=== PATIENT | male | born 1980 | race Asian ===

== ENCOUNTER 2024-05-25 12:40 | Emergency (ER) | payer MEDICAID ==
[~2024-05-25] VITALS: Ht 165.1 cm; Wt 49.4 kg
[2024-05-25] MEDS: ziprasidone IM 20mg inj **IM only IM ONE (14:48)
[2024-05-25 14:49] LABS: BASOPHILS % (AUTO) 0.1 % (0-1); EOSINOPHILS % (AUTO) 0 % (0-6); HEMATOCRIT 44.7 % (42.0-52.0); LYMPHOCYTES # (AUTO) 0.9 X10'3 (1.1-4.8); LYMPHOCYTES % (AUTO) 9.2 % (21-51); MEAN CORPUSCULAR HGB CONC 33.6 g/dL (33.0-36.5); MEAN CORPUSCULAR VOLUME 98.1 FL (78-98); MEAN PLATELET VOLUME 8.1 FL (7.4-10.4); MONOCYTES # (AUTO) 0.4 X10'3 (0-0.9); NEUTROPHILS # (AUTO) 8.8 X10'3 (1.8-7.7); NEUTROPHILS % (AUTO) 86.7 % (42-75); PLATELET COUNT 196 X10'3 (140-440); RED BLOOD COUNT 4.55 X10'6 (4.70-6.10); RED CELL DISTRIBUTION WIDTH 13.6 % (11.5-14.5); WHITE BLOOD COUNT 10.1 X10'3 (4.5-11.0)
[2024-05-25 15:08] LABS: ALANINE AMINOTRANSFERASE 31 U/L (12-78); ALBUMIN 4.3 G/DL (3.4-5.0); ALBUMIN/GLOBULIN RATIO 1.3 (1.1-1.5); ALKALINE PHOSPHATASE 62 IU/L (46-116); ANION GAP 13 (8-16); ASPARTATE AMINO TRANSFERASE 32 U/L (10-37); BILIRUBIN,TOTAL 1.3 MG/DL (0.1-1.0); BLOOD UREA NITROGEN 26 MG/DL (7-18); BUN/CREATININE RATIO 25.2 (10.0-20.0); CALCIUM 8.9 MG/DL (8.5-10.1); CHLORIDE 105 MMOL/L (99-107); CREATININE 1.03 MG/DL (0.60-1.10); GLUCOSE 105 MG/DL (70-104); POTASSIUM 4.6 MMOL/L (3.5-5.1); SODIUM 146 MMOL/L (135-145); TOTAL CARBON DIOXIDE 27.7 MMOL/L (24-32); TOTAL PROTEIN 7.5 G/DL (6.4-8.2); eCRCL 3 ML/MIN; eGFR 78 ML/MIN
[2024-05-25 15:19] LABS: ETHANOL < 10 MG/DL (<10); FREE T4 (FREE THYROXINE) 1.27 NG/DL (0.73-1.40); SALICYLATE 1.4 MG/DL (4.0-20.0)
[2024-05-25 15:32] LABS: BILIRUBIN,URINE NEGATIVE (Neg); CLARITY,URINE SLIGHTLY CLOUDY (Clear); COLOR,URINE YELLOW (Yellow); GLUCOSE, URINE NEGATIVE (Neg); KETONES,URINE >=80 mg/dl (Neg); LEUKOCYTE ESTERASE ,URINE NEGATIVE (Neg); NITRITES, URINE NEGATIVE (Neg); OCCULT BLOOD,URINE NEGATIVE (Neg); PROTEIN,URINE 100 mg/dl (Neg); UROBILINOGEN,URINE 0.2 E.U/dL (0.2-1.0)
[2024-05-25 15:41] LABS: UA COLLECTION TYPE STRAIGHT CATH
[2024-05-25 15:42] LABS: BACTERIA,URINE FEW /HPF (Neg); MUCUS STRANDS FEW /LPF (Neg); RBC,URINE 0-2 /HPF (0-2); SQUAMOUS EPITHELIAL CELL,UR FEW /LPF (FEW); TRANSITIONAL EPI CELLS,URINE FEW /HPF; WBC,URINE 0-4 /HPF (0-4)
[2024-05-25 15:43] LABS: AMORPHOUS URATES 1+
[2024-05-25] MEDS ORDERED: iohexol 350MG/ML 100ml bottle IV ONE (15:51)
[2024-05-25 15:58] LABS: PRO BRAIN NATRIURETIC PEPTIDE 117 PG/ML (0-125)
[2024-05-25 16:02] LABS: ACETAMINOPHEN < 2.0 UG/ML (10-30)
[2024-05-25 16:07] LABS: URINE AMPHETAMINE SCREEN NEGATIVE (Neg); URINE BARBITUATE SCREEN NEGATIVE (Neg); URINE BENZODIAZEPINES SCREEN NEGATIVE (Neg); URINE CANNABINOID SCREEN NEGATIVE (Neg); URINE COCAINE SCREEN NEGATIVE (Neg); URINE METHADONE SCREEN NEGATIVE (Neg); URINE OPIATE SCREEN NEGATIVE (Neg); URINE PHENCYCLIDINE SCREEN NEGATIVE (Neg)
[2024-05-26] MEDS: LORazepam 2 mg/ml vial IV ONE (13:10)
[2024-05-26] MEDS: normal saline 1000ml 1,000 ML IV ONE (13:20)
[2024-05-26] MEDS: ziprasidone IM 20mg inj **IM only IM ONE (14:36)
[2024-05-27] MEDS ORDERED: NO HOME MEDS (00:51)
[2024-05-27 05:41] VITALS: BP 114/66; PULSE 79; TEMP 97.8; O2SAT 96
[2024-05-27] MEDS: diphenhydrAMINE 25mg capsule PO ONE (07:59)
[2024-05-27] MEDS: LORazepam 1 MG tablet PO ONE (07:59)
[2024-05-27 11:17] VITALS: RESP 16
== END 2024-05-27 12:55 ==
LOC: ER 12:41
DX: F23 Brief psychotic disorder (principal); Z20.822 Contact with and (suspected) exposure to COVID-19; R41.82 Altered mental status, unspecified; R07.89 Other chest pain
CPT/HCPCS: 36415; 70450; 71045; 71275; 80053; 80178; 80305; 80320; 80329; 81001; 82948; 83605; 83880; 84145; 84439; 84443; 84484; 85025; 85379; 87811; 93005; 96361; 96372; 96374; 99291; J2060; J3486; J7030; Q9967; C1758

== ENCOUNTER 2024-07-15 07:26 | Emergency (ER) | payer MEDICAID ==
[~2024-07-15] VITALS: Ht 167.6 cm; Wt 55.8 kg
[~2024-07-15 07:26] MED LIST: LORA-269 PO; NO HOME MEDS
[2024-07-15 07:28] VITALS: BP 107/70; PULSE 83; RESP 16; TEMP 98; O2SAT 97
[2024-07-15] MEDS ORDERED: LORA-269 PO (08:04)
[2024-07-15] MEDS: normal saline 500ml IV soln 500 ML IV SCH (08:10)
[2024-07-15] MEDS: LORazepam 1 MG tablet PO ONE (08:22)
[2024-07-15] MEDS: LORazepam 2 mg/ml vial IV ONE (08:23)
== END 2024-07-15 08:30 | disposition home or self-care (01) ==
LOC: ER 07:27
DX: Z76.0 Encounter for issue of repeat prescription (principal); F20.9 Schizophrenia, unspecified; Z79.899 Other long term (current) drug therapy
CPT/HCPCS: 99283; J2060

== ENCOUNTER 2024-12-25 15:36 | Inpatient (IN) | payer MEDICAID ==
[~2024-12-25] VITALS: Ht 170.2 cm; Wt 52.0 kg
--- NOTE | 2024-12-25 16:36 | Physician Documentation ---
History of Present Illness General Chief Complaint: Mental Health Eval Stated Complaint: 5150 Time Seen by MD: 16:30 Primary Medical Doctor: None History of Present Illness Initial Comments The patient is a 44-year-old Mandarin speaking male with a history of schizophrenia who is brought in on a 5150 hold for grave disability as he has not been eating, drinking or taking his medications. The hold was initiated by the [facility]. Medication Reconciliation Allergies: Coded Allergies: No Known Allergies (Unverified , 05/27/24) Scheduled Lorazepam (Ativan), 1 TAB PO Q8H Scheduled PRN Lorazepam (Ativan), 1 TAB PO Q12H PRN PRN for anxiety Miscellaneous Medications Home Med List (No Home Medications), (Reported) Review of Systems ROS Unable to obtain. Physical Exam Physical Exam Vital Signs: Temperature: 98.0, Source: Oral, Heart Rate: 97, Respiratory Rate: 16, BP: 108/85, Pulse Oximetry: 98, Weight: 52.000 Physical Exam Physical Exam Vitals and nursing note reviewed. Constitutional: General: Patient is awake, alert, oriented x 4 in no acute distress and well appearing. Speech is clear and lucid. Appearance: Normal appearance. Patient is not ill-appearing, toxic-appearing or diaphoretic. HENT: Head: Normocephalic and atraumatic. Mouth/Throat: Mouth: Mucous membranes are moist. Pharynx: Oropharynx is clear. Eyes: General: No scleral icterus. Extraocular Movements: Extraocular movements intact. Pupils: Pupils are equal, round, and reactive to light. Cardiovascular: Rate and Rhythm: Normal rate and regular rhythm. Heart sounds: No murmur heard. Pulmonary: Effort: No respiratory distress. Breath sounds: No wheezing, rhonchi or rales. Abdominal: General: There is no distension. Palpations: There is no fluid wave, hepatomegaly or mass. Tenderness: There is no abdominal tenderness. There is no guarding. Musculoskeletal: General: No swelling or deformity. Skin: Coloration: Skin is not jaundiced. Findings: No erythema or rash. Neurological: Mental Status: Patient is alert. Progress Results/Orders Results/Orders Vital Signs 12/25/24 15:47 Temp 98.0 Pulse 97 Resp 16 B/P (MAP) 108/85 Pulse Ox 98 Medical Decision Making Findings Medical clearance labs have been ordered. Departure Impression: Primary Impression: Gravely disabled Referrals: NO PRIMARY CARE PROVIDER (PCP) Signature Scribe Signature: . Attestation: . MARCIE DALY MD Dec 25, 2024 16:36
[2024-12-25] MEDS ORDERED: OLAN2.5T77 PO (16:45)
[2024-12-25] MEDS ORDERED: OLAN5TAB29 PO (16:49)
[2024-12-25 17:45] LABS: EOSINOPHILS % (AUTO) 0.1 % (0-6); HEMOGLOBIN 17.5 g/dl (14.0-17.9); MEAN PLATELET VOLUME 8.7 FL (7.4-10.4); MONOCYTES # (AUTO) 0.5 X10'3 (0-0.9); RED CELL DISTRIBUTION WIDTH 13.9 % (11.5-14.5)
[2024-12-25 17:47] LABS: BASOPHILS % (AUTO) 0.4 % (0-1); HEMATOCRIT 50.8 % (42.0-52.0); LYMPHOCYTES # (AUTO) 1.3 X10'3 (1.1-4.8); LYMPHOCYTES % (AUTO) 13.9 % (21-51); MEAN CORPUSCULAR HGB CONC 34.5 g/dL (33.0-36.5); MEAN CORPUSCULAR VOLUME 92.6 FL (78-98); MONOCYTES % (AUTO) 5.3 % (2-12); NEUTROPHILS # (AUTO) 7.6 X10'3 (1.8-7.7); NEUTROPHILS % (AUTO) 80.3 % (42-75); PLATELET COUNT 191 X10'3 (140-440); RED BLOOD COUNT 5.48 X10'6 (4.70-6.10); WHITE BLOOD COUNT 9.4 X10'3 (4.5-11.0)
[2024-12-25 17:49] LABS: ALANINE AMINOTRANSFERASE 21 U/L (12-78); ALBUMIN 4.8 G/DL (3.4-5.0); ALBUMIN/GLOBULIN RATIO 1.3 (1.1-1.5); ALKALINE PHOSPHATASE 73 IU/L (46-116); ANION GAP 11 (8-16); ASPARTATE AMINO TRANSFERASE 19 U/L (10-37); BILIRUBIN,TOTAL 1.4 MG/DL (0.1-1.0); BLOOD UREA NITROGEN 28 MG/DL (7-18); BUN/CREATININE RATIO 18.9 (10.0-20.0); CALCIUM 9.7 MG/DL (8.5-10.1); CHLORIDE 111 MMOL/L (99-107); CREATININE 1.48 MG/DL (0.60-1.10); GLUCOSE 130 MG/DL (70-104); POTASSIUM 4.4 MMOL/L (3.5-5.1); SODIUM 152 MMOL/L (135-145); TOTAL CARBON DIOXIDE 29.8 MMOL/L (24-32); TOTAL PROTEIN 8.4 G/DL (6.4-8.2); eCRCL 46 ML/MIN; eGFR 51 ML/MIN
[2024-12-25 17:58] LABS: THYROID STIMULATING HORMONE 0.82 ulU/ml (0.34-4.50)
[2024-12-25 18:26] LABS: BILIRUBIN,URINE MODERATE (Neg); CLARITY,URINE CLEAR (Clear); COLOR,URINE YELLOW (Yellow); GLUCOSE, URINE NEGATIVE (Neg); KETONES,URINE >=80 mg/dl (Neg); LEUKOCYTE ESTERASE ,URINE NEGATIVE (Neg); NITRITES, URINE NEGATIVE (Neg); OCCULT BLOOD,URINE TRACE-INTACT (Neg); PROTEIN,URINE 100 mg/dl (Neg); UROBILINOGEN,URINE 0.2 E.U/dL (0.2-1.0)
[2024-12-25 18:27] LABS: UA COLLECTION TYPE URINAL
[2024-12-25 18:32] LABS: URINE AMPHETAMINE SCREEN NEGATIVE (Neg); URINE BARBITUATE SCREEN NEGATIVE (Neg); URINE BENZODIAZEPINES SCREEN NEGATIVE (Neg); URINE CANNABINOID SCREEN NEGATIVE (Neg); URINE COCAINE SCREEN NEGATIVE (Neg); URINE METHADONE SCREEN NEGATIVE (Neg); URINE OPIATE SCREEN NEGATIVE (Neg); URINE PHENCYCLIDINE SCREEN NEGATIVE (Neg)
[2024-12-25 18:37] LABS: AMMONIUM BIURATE CRYSTALS 2+ /HPF (NEGATIVE)
[2024-12-25 18:39] LABS: BACTERIA,URINE FEW /HPF (Neg); RBC,URINE 0-2 /HPF (0-2); WBC,URINE NONE SEEN /HPF (0-4)
[2024-12-25 18:40] LABS: HYALINE CASTS 0-3 /LPF (NEGATIVE); MUCUS STRANDS FEW /LPF (Neg); SQUAMOUS EPITHELIAL CELL,UR NONE SEEN /LPF (FEW)
[2024-12-25] MEDS: OLANZapine 5mg rapidly disint. tablet PO SCH (20:41)
[2024-12-25] MEDS: ringers solution, lactated 1000ml IV soln IV ONE (21:39)
[2024-12-26 00:44] LABS: ALBUMIN 3.6 G/DL (3.4-5.0); ANION GAP 7 (8-16); BLOOD UREA NITROGEN 26 MG/DL (7-18); CALCIUM 8.3 MG/DL (8.5-10.1); CHLORIDE 117 MMOL/L (99-107); CREATININE 1.24 MG/DL (0.60-1.10); GLUCOSE 118 MG/DL (70-104); POTASSIUM 3.7 MMOL/L (3.5-5.1); SODIUM 153 MMOL/L (135-145); TOTAL CARBON DIOXIDE 28.6 MMOL/L (24-32); eCRCL 55 ML/MIN; eGFR 63 ML/MIN
[2024-12-26] MEDS: dextrose 5%-1/2 normal saline 1,000 ML IV ONE (03:18)
[2024-12-26 08:47] LABS: BASOPHILS % (AUTO) 0.4 % (0-1); EOSINOPHILS # (AUTO) 0.1 X10'3 (0-0.9); EOSINOPHILS % (AUTO) 0.7 % (0-6); HEMATOCRIT 45.7 % (42.0-52.0); HEMOGLOBIN 15.6 g/dl (14.0-17.9); LYMPHOCYTES # (AUTO) 1.8 X10'3 (1.1-4.8); LYMPHOCYTES % (AUTO) 22.1 % (21-51); MEAN CORPUSCULAR HEMOGLOBIN 31.7 PG (27.0-31.0); MEAN CORPUSCULAR HGB CONC 34.2 g/dL (33.0-36.5); MEAN CORPUSCULAR VOLUME 92.6 FL (78-98); MEAN PLATELET VOLUME 8.5 FL (7.4-10.4); MONOCYTES # (AUTO) 0.5 X10'3 (0-0.9); MONOCYTES % (AUTO) 5.7 % (2-12); NEUTROPHILS # (AUTO) 5.7 X10'3 (1.8-7.7); NEUTROPHILS % (AUTO) 71.1 % (42-75); PLATELET COUNT 145 X10'3 (140-440); RED BLOOD COUNT 4.94 X10'6 (4.70-6.10); RED CELL DISTRIBUTION WIDTH 13.9 % (11.5-14.5)
[2024-12-26 08:54] LABS: ALANINE AMINOTRANSFERASE 16 U/L (12-78); ALBUMIN 3.8 G/DL (3.4-5.0); ALBUMIN/GLOBULIN RATIO 1.3 (1.1-1.5); ALKALINE PHOSPHATASE 59 IU/L (46-116); ANION GAP 6 (8-16); ASPARTATE AMINO TRANSFERASE 14 U/L (10-37); BILIRUBIN,TOTAL 1.2 MG/DL (0.1-1.0); BLOOD UREA NITROGEN 22 MG/DL (7-18); BUN/CREATININE RATIO 15.7 (10.0-20.0); CALCIUM 8.6 MG/DL (8.5-10.1); CHLORIDE 114 MMOL/L (99-107); GLUCOSE 150 MG/DL (70-104); POTASSIUM 3.1 MMOL/L (3.5-5.1); SODIUM 153 MMOL/L (135-145); TOTAL CARBON DIOXIDE 32.7 MMOL/L (24-32); TOTAL PROTEIN 6.7 G/DL (6.4-8.2); eCRCL 49 ML/MIN; eGFR 55 ML/MIN
[2024-12-26] MEDS ORDERED: acetaminophen 325mg tablet PO PRN (10:15)
[2024-12-26] MEDS ORDERED: potassium Cl 40MEQ/1/2NS 520ml 520 ML IV PRN (10:15)
[2024-12-26] MEDS ORDERED: magnesium sulf-water 2g/50mL 50 ML IV PRN (10:15)
[2024-12-26] MEDS ORDERED: magnesium hydroxide 30ml (MOM) UD suspension PO PRN (10:15)
[2024-12-26] MEDS ORDERED: ondansetron/PF 4mg/2ml inj IV PRN (10:15)
[2024-12-26] MEDS ORDERED: magnesium sulf-water 4G/100mL 100 ML IV PRN (10:15)
[2024-12-26] MEDS ORDERED: mag hydrox/Alum hydrox/simeth 30ml oral suspension PO PRN (10:15)
[2024-12-26] MEDS: D5-1/2NS w/20 mEq potassium per 1000ml IV ONE (10:18)
[2024-12-26] MEDS: potassium Cl 20 mEq SR tablet PO PRN ×2 (11:23→18:04)
[2024-12-26] MEDS ORDERED: UNABLE TO OBTAIN (11:43)
[2024-12-26] MEDS: dextrose 5%-water 1,000 ML IV SCH (11:43)
[2024-12-26 16:34] LABS: ALBUMIN 3.2 G/DL (3.4-5.0); ANION GAP 7 (8-16); BLOOD UREA NITROGEN 21 MG/DL (7-18); BUN/CREATININE RATIO 19.3 (10.0-20.0); CALCIUM 8.2 MG/DL (8.5-10.1); CHLORIDE 110 MMOL/L (99-107); CREATININE 1.09 MG/DL (0.60-1.10); GLUCOSE 153 MG/DL (70-104); POTASSIUM 3.2 MMOL/L (3.5-5.1); SODIUM 147 MMOL/L (135-145); TOTAL CARBON DIOXIDE 30.2 MMOL/L (24-32); eCRCL 63 ML/MIN; eGFR 73 ML/MIN
--- NOTE | 2024-12-26 16:59 | HISTORY AND PHYSICAL ---
History & Physical Providers to CC ~ History of Present Illness Reason for Admit\Complaint: Gravely disabled/ failure to thrive History of Present Illness This is a 44-year-old male who has a patient of [facility] speaks only minimal amount of French in his capitan grande Mandarin speaker thus the video medical management trainer was used for translation. The ED physician spoke with the family whom were no longer present when I evaluated the patient. The patient informs me that last Thursday which was seven days ago he was experiencing nausea and vomiting and stopped eating and has not eaten or drank water or any fluids for one-week per ED physician the patient has stopped taking in his medications around that timeframe as well the patient has history of schizophrenia but informs me he has a anxiety the patient is awaiting inpatient mental health placement however the patient is significantly dehydrated on arrival to the ED his serum sodium was 152 in his creatinine was 1.48 the patient received 2 L of lactated Ringer's IV and was started on a D5 half-normal saline drip with 20 mEq potassium the patient actually had up trending serum sodium to 153 and a creatinine slightly improved to 1.40 the patient is also hypokalemic serum potassium of 3.2. I started the patient on a D5W drip and had ordered a serum osmolality which was 318 a repeat basic metabolic panel demonstrated a serum sodium was improved to 147 in his creatinine was 1.09 this was 5-1/2 hours after the prior labs were. The patient has no other complaints. Allergies: Coded Allergies: No Known Allergies (Unverified , 05/27/24) Home Medications Home Medications Active Reported Unable to Obtain Medications (Non-Formulary Medication) [place] [facility] [place] call with med list Olanzapine 5 Mg Tab.rapdis 1 Tab PO HS Past Medical History Past Medical History Possible schizophrenia, the patient endorses anxiety history Past Surgical History Surgical History Comment No prior surgeries Family History Family History: Patient reports no known family medical history. Past Social History Social History Comment Patient denes history of smoking/ drinking alcohol nor any illicit drug use ROS ROS Except for positives in the HPI the rest of the 14 point review systems is negative Exam Vitals: Vital Signs Date Time Temp Pulse Resp B/P (MAP) Pulse Ox O2 Delivery O2 Flow Rate FiO2 12/26/24 15:22 68 18 105/78 (87) 100 0 12/26/24 09:38 98.3 General: Gen. No acute distress alert and oriented Lungs clear to ascultation bilaterally, no wheezes rales or rhonchi appreciated Heart normal sinus rhythm no murmurs rubs or clicks noted Abdomen soft nontender bowel sounds are normoactive Lower extremities no clubbing cyanosis, nor edema appreciated bilaterally Diagnostic Data Last Recorded Lab Results: 12/26/24 0833 12/26/24 1617 Counseling Services Smoking & Tobacco Cessation: N/A Advance Care Planning Advanced Care planning: N/A Problems: (1) Gravely disabled Status: Acute Additional Plan # gravely disabled # failure to thrive currently on a 1799.11 hold A sitter is ordered IV fluid resuscitation # hypernatremia Improving with D5W drip Continue monitor daily CMP # ALISA secondary to dehydration/possible vasomotor nephropathy Serum osmolality is 318 Nearly resolved with D5W drip continue to monitor daily CMP # hypokalemia On the potassium replacement protocol DVT prophylaxis SQ Lovenox Full code status by default Date of Service: Dec 26, 2024 Billing Provider: NOEL LERNER DO Common Visit Codes: [id number] INP/OBS CARE (HIGH) NOEL LERNER DO Dec 26, 2024 16:59
[2024-12-26 18:00] VITALS: BP 104/68; PULSE 63; RESP 14; TEMP 97.8; O2SAT 98
[2024-12-26] MEDS: enoxaparin 40mg/0.4ml syringe SQ SCH (20:00)
[2024-12-26] MEDS: K and/or MAG REPLACEMENT MC SCH (20:00)
[2024-12-26] MEDS: docusate sod 100mg capsule PO SCH (20:26)
[2024-12-26 22:00] VITALS: BP 100/59; PULSE 72; RESP 13; TEMP 97.5; O2SAT 98
[2024-12-27 04:48] LABS: BASOPHILS % (AUTO) 0.2 % (0-1); EOSINOPHILS # (AUTO) 0.1 X10'3 (0-0.9); EOSINOPHILS % (AUTO) 1.2 % (0-6); HEMOGLOBIN 14.2 g/dl (14.0-17.9); LYMPHOCYTES # (AUTO) 1.3 X10'3 (1.1-4.8); LYMPHOCYTES % (AUTO) 22.8 % (21-51); MEAN CORPUSCULAR HEMOGLOBIN 31.3 PG (27.0-31.0); MEAN CORPUSCULAR HGB CONC 34.5 g/dL (33.0-36.5); MEAN CORPUSCULAR VOLUME 90.7 FL (78-98); MEAN PLATELET VOLUME 8.4 FL (7.4-10.4); MONOCYTES # (AUTO) 0.3 X10'3 (0-0.9); MONOCYTES % (AUTO) 5.4 % (2-12); NEUTROPHILS # (AUTO) 3.9 X10'3 (1.8-7.7); NEUTROPHILS % (AUTO) 70.4 % (42-75); PLATELET COUNT 115 X10'3 (140-440); RED BLOOD COUNT 4.52 X10'6 (4.70-6.10); RED CELL DISTRIBUTION WIDTH 13.3 % (11.5-14.5); WHITE BLOOD COUNT 5.5 X10'3 (4.5-11.0)
[2024-12-27 05:00] VITALS: BP 92/60; PULSE 74; RESP 13; TEMP 97.3; O2SAT 95
[2024-12-27 05:05] LABS: ALANINE AMINOTRANSFERASE 16 U/L (12-78); ALBUMIN 3.2 G/DL (3.4-5.0); ALBUMIN/GLOBULIN RATIO 1.2 (1.1-1.5); ALKALINE PHOSPHATASE 52 IU/L (46-116); ANION GAP 6 (8-16); ASPARTATE AMINO TRANSFERASE 14 U/L (10-37); BILIRUBIN,TOTAL 0.8 MG/DL (0.1-1.0); BLOOD UREA NITROGEN 15 MG/DL (7-18); BUN/CREATININE RATIO 16.5 (10.0-20.0); CALCIUM 8.7 MG/DL (8.5-10.1); CHLORIDE 111 MMOL/L (99-107); CREATININE 0.91 MG/DL (0.60-1.10); GLUCOSE 136 MG/DL (70-104); MAGNESIUM 1.9 MG/DL (1.5-2.4); POTASSIUM 3.5 MMOL/L (3.5-5.1); SODIUM 148 MMOL/L (135-145); TOTAL CARBON DIOXIDE 30.9 MMOL/L (24-32); TOTAL PROTEIN 5.8 G/DL (6.4-8.2); eCRCL 75 ML/MIN; eGFR 90 ML/MIN
[2024-12-27 08:00] VITALS: RESP 16; O2SAT 98
[2024-12-27 09:51] LABS: OSMOLALITY 303 MOSM/K (280-300)
[2024-12-27 10:00] VITALS: BP 102/69; PULSE 80; RESP 16; TEMP 97.8; O2SAT 98
--- NOTE | 2024-12-27 15:30 | PROGRESS NOTE ---
Daily Progress Note Providers to CC ~ Antibiotic Timeout Antibiotic Ordered?: No Subjective The patient's renal function has normalized in his serum osmolality is close to normalized as well. This visit was accomplished with the help of the video certified court/medical interpreter system- the patient has only request was wondering when he can go home however after explaining his situation the patient expressed understanding. The patient will likely be medically cleared tomorrow. Objective Vital Signs Date Time Temp Pulse Resp B/P (MAP) Pulse Ox O2 Delivery O2 Flow Rate FiO2 12/27/24 10:00 97.8 80 16 102/69 (80) 98 Room Air 12/27/24 08:00 0.0 Result Diagram: 12/27/2441912/27/24419 Gen. No acute distress alert and oriented 4 Lungs clear to ascultation bilaterally, no wheezes rales or rhonchi appreciated Heart normal sinus rhythm no murmurs rubs or clicks noted Abdomen soft nontender bowel sounds are normoactive Lower extremities no clubbing cyanosis, nor edema appreciated bilaterally Problem\Assessment\Plan Problems/Diagnosis: (1) Gravely disabled Additional Plan # gravely disabled # failure to thrive currently on a 1799.11 hold A sitter is ordered IV fluid resuscitation # hypernatremia Improving with D5W drip Continue monitor daily CMP Stable # ALISA secondary to dehydration/possible vasomotor nephropathy Serum osmolality is 318 Nearly resolved with D5W drip continue to monitor daily CMP 12/27 significantly improved serum osmolality is now 303 # hypokalemia On the potassium replacement protocol 12/27 resolved DVT prophylaxis SQ Lovenox Disposition: Anticipate that the patient will be medically cleared to be evaluated by [facility] in the a.m. Date of Service: Dec 27, 2024 Billing Provider: NOEL LERNER DO Common Visit Codes: [id number] INP/OBS CARE(HIGH) NOEL LERNER DO Dec 27, 2024 15:30
[2024-12-27 18:00] VITALS: BP 101/58; PULSE 73; RESP 20; TEMP 98.9; O2SAT 98
[2024-12-27 22:00] VITALS: BP 100/66; PULSE 69; RESP 13; TEMP 96.6; O2SAT 98
[2024-12-28 04:44] LABS: BASOPHILS % (AUTO) 0.3 % (0-1); EOSINOPHILS # (AUTO) 0.1 X10'3 (0-0.9); EOSINOPHILS % (AUTO) 2.8 % (0-6); HEMATOCRIT 41.5 % (42.0-52.0); HEMOGLOBIN 14.2 g/dl (14.0-17.9); LYMPHOCYTES # (AUTO) 1.4 X10'3 (1.1-4.8); LYMPHOCYTES % (AUTO) 29.7 % (21-51); MEAN CORPUSCULAR HEMOGLOBIN 31.2 PG (27.0-31.0); MEAN CORPUSCULAR HGB CONC 34.2 g/dL (33.0-36.5); MEAN CORPUSCULAR VOLUME 91.3 FL (78-98); MEAN PLATELET VOLUME 8.6 FL (7.4-10.4); MONOCYTES # (AUTO) 0.3 X10'3 (0-0.9); MONOCYTES % (AUTO) 6.1 % (2-12); NEUTROPHILS # (AUTO) 2.8 X10'3 (1.8-7.7); NEUTROPHILS % (AUTO) 61.1 % (42-75); PLATELET COUNT 110 X10'3 (140-440); RED BLOOD COUNT 4.54 X10'6 (4.70-6.10); RED CELL DISTRIBUTION WIDTH 13.3 % (11.5-14.5); WHITE BLOOD COUNT 4.6 X10'3 (4.5-11.0)
[2024-12-28 05:00] VITALS: BP 98/65; PULSE 75; RESP 15; TEMP 97.3; O2SAT 96
[2024-12-28 05:16] LABS: ALANINE AMINOTRANSFERASE 19 U/L (12-78); ALBUMIN 3.2 G/DL (3.4-5.0); ALBUMIN/GLOBULIN RATIO 1.2 (1.1-1.5); ALKALINE PHOSPHATASE 51 IU/L (46-116); ANION GAP 4 (8-16); ASPARTATE AMINO TRANSFERASE 19 U/L (10-37); BILIRUBIN,TOTAL 0.6 MG/DL (0.1-1.0); BLOOD UREA NITROGEN 10 MG/DL (7-18); BUN/CREATININE RATIO 10.5 (10.0-20.0); CALCIUM 8.5 MG/DL (8.5-10.1); CHLORIDE 105 MMOL/L (99-107); CREATININE 0.95 MG/DL (0.60-1.10); GLUCOSE 137 MG/DL (70-104); MAGNESIUM 1.8 MG/DL (1.5-2.4); SODIUM 144 MMOL/L (135-145); TOTAL CARBON DIOXIDE 34.7 MMOL/L (24-32); TOTAL PROTEIN 5.9 G/DL (6.4-8.2); eCRCL 72 ML/MIN; eGFR 86 ML/MIN
[2024-12-28 05:28] LABS: POTASSIUM 2.9 MMOL/L (3.5-5.1)
[2024-12-28 08:13] VITALS: RESP 16; O2SAT 99
[2024-12-28 10:00] VITALS: BP 102/64; PULSE 70; RESP 16; TEMP 97.3; O2SAT 96
[2024-12-28] MEDS: Potassium Cl inj 40 MEQ in normal saline 500ml IV soln 500 ML IV ONE (10:03)
[2024-12-28 16:56] LABS: ALBUMIN 3.2 G/DL (3.4-5.0); ANION GAP 3 (8-16); BILIRUBIN,TOTAL 0.4 MG/DL (0.1-1.0); BLOOD UREA NITROGEN 11 MG/DL (7-18); BUN/CREATININE RATIO 12.6 (10.0-20.0); CALCIUM 8.6 MG/DL (8.5-10.1); CHLORIDE 107 MMOL/L (99-107); CREATININE 0.87 MG/DL (0.60-1.10); GLUCOSE 112 MG/DL (70-104); POTASSIUM 4.2 MMOL/L (3.5-5.1); SODIUM 143 MMOL/L (135-145); TOTAL CARBON DIOXIDE 33.4 MMOL/L (24-32); TOTAL PROTEIN 6.1 G/DL (6.4-8.2); eCRCL 79 ML/MIN; eGFR > 90 ML/MIN
[2024-12-28 16:57] LABS: ALANINE AMINOTRANSFERASE 23 U/L (12-78); ALBUMIN/GLOBULIN RATIO 1.1 (1.1-1.5); ALKALINE PHOSPHATASE 56 IU/L (46-116); ASPARTATE AMINO TRANSFERASE 19 U/L (10-37)
[2024-12-28 18:00] VITALS: BP 103/65; PULSE 68; RESP 17; TEMP 98; O2SAT 99
--- NOTE | 2024-12-28 18:20 | PROGRESS NOTE ---
Daily Progress Note Providers to CC ~ Antibiotic Timeout Antibiotic Ordered?: No Subjective The patient stated he did not like Zyprexa does this medication was causes mouth to be dry and made him feel out of sorts he requests the stopped this medication. The patient has hypokalemia today and was on potassium replacement protocol- the visit was accomplished with the assistance of the video phone [employer] ranch hand supervisor Objective Vital Signs Date Time Temp Pulse Resp B/P (MAP) Pulse Ox O2 Delivery O2 Flow Rate FiO2 12/28/24 10:00 97.3 70 16 102/64 (77) 96 Room Air 12/27/24 08:00 0.0 Result Diagram: 12/28/24 0410 12/28/24 1558 Gen. No acute distress alert and oriented 4 Lungs clear to ascultation bilaterally, no wheezes rales or rhonchi appreciated Heart normal sinus rhythm no murmurs rubs or clicks noted Abdomen soft nontender bowel sounds are normoactive Lower extremities no clubbing cyanosis, nor edema appreciated bilaterally Problem\Assessment\Plan Problems/Diagnosis: (1) Gravely disabled This is a 44-year-old male who speaks limited Honduran and is fluent in [employer] Ukrainian a came in with an ALISA/ severe dehydration due to lack of p.o. intake for one-week the patient was made a 5150 in the ED in his on a 1799 hold Her serum potassium was 2.9 this morning however this was resolved with potassium supplementation in his 4.2 this afternoon. The patient is medically cleared to be evaluated by [facility] in the a.m. Additional Plan # gravely disabled # failure to thrive currently on a 1799.11 hold A sitter is ordered IV fluid resuscitation # hypernatremia Resolved with D5W drip # ALISA secondary to dehydration/possible vasomotor nephropathy Serum osmolality is 318 Nearly resolved with D5W drip continue to monitor daily CMP 12/27 significantly improved serum osmolality is now 303 12/28 resolved # hypokalemia On the potassium replacement protocol 12/27 resolved DVT prophylaxis SQ Lovenox Disposition: Medically cleared to be evaluated by [facility] Date of Service: Dec 28, 2024 Billing Provider: NOEL LERNER DO Common Visit Codes: [id number] INP/OBS CARE(HIGH) NOEL LERNER DO Dec 28, 2024 18:20
[2024-12-28 20:00] VITALS: RESP 17; O2SAT 99
[2024-12-28 22:00] VITALS: BP 97/63; PULSE 60; RESP 16; TEMP 98.9; O2SAT 97
[2024-12-29 06:00] VITALS: BP 92/55; PULSE 65; RESP 17; TEMP 97.9; O2SAT 99
[2024-12-29 08:21] LABS: BASOPHILS % (AUTO) 0.5 % (0-1); EOSINOPHILS # (AUTO) 0.2 X10'3 (0-0.9); EOSINOPHILS % (AUTO) 3.3 % (0-6); HEMATOCRIT 43.9 % (42.0-52.0); HEMOGLOBIN 14.9 g/dl (14.0-17.9); LYMPHOCYTES # (AUTO) 2.2 X10'3 (1.1-4.8); LYMPHOCYTES % (AUTO) 35.3 % (21-51); MEAN CORPUSCULAR HEMOGLOBIN 31.1 PG (27.0-31.0); MEAN CORPUSCULAR HGB CONC 33.9 g/dL (33.0-36.5); MEAN CORPUSCULAR VOLUME 91.8 FL (78-98); MEAN PLATELET VOLUME 8.9 FL (7.4-10.4); MONOCYTES # (AUTO) 0.3 X10'3 (0-0.9); NEUTROPHILS # (AUTO) 3.5 X10'3 (1.8-7.7); NEUTROPHILS % (AUTO) 55.9 % (42-75); PLATELET COUNT 126 X10'3 (140-440); RED BLOOD COUNT 4.79 X10'6 (4.70-6.10); RED CELL DISTRIBUTION WIDTH 13.4 % (11.5-14.5); WHITE BLOOD COUNT 6.2 X10'3 (4.5-11.0)
[2024-12-29 09:09] LABS: ANION GAP 7 (8-16); CALCIUM 8.8 MG/DL (8.5-10.1); CHLORIDE 104 MMOL/L (99-107); CREATININE 0.92 MG/DL (0.60-1.10); POTASSIUM 3.7 MMOL/L (3.5-5.1); SODIUM 140 MMOL/L (135-145); TOTAL CARBON DIOXIDE 29.2 MMOL/L (24-32); eCRCL 75 ML/MIN; eGFR 89 ML/MIN
[2024-12-29 09:20] LABS: ALANINE AMINOTRANSFERASE 31 U/L (12-78); ALBUMIN 3.6 G/DL (3.4-5.0); ALBUMIN/GLOBULIN RATIO 1.2 (1.1-1.5); ALKALINE PHOSPHATASE 58 IU/L (46-116); ASPARTATE AMINO TRANSFERASE 25 U/L (10-37); BILIRUBIN,TOTAL 0.7 MG/DL (0.1-1.0); BLOOD UREA NITROGEN 15 MG/DL (7-18); BUN/CREATININE RATIO 16.3 (10.0-20.0); GLUCOSE 135 MG/DL (70-104); MAGNESIUM 2.2 MG/DL (1.5-2.4); TOTAL PROTEIN 6.7 G/DL (6.4-8.2)
[2024-12-29 10:00] VITALS: BP 97/60; PULSE 73; RESP 16; TEMP 97.4; O2SAT 98
--- NOTE | 2024-12-29 10:44 | PROGRESS NOTE ---
Daily Progress Note Providers to CC ~ Antibiotic Timeout Antibiotic Ordered?: No Objective Vital Signs Date Time Temp Pulse Resp B/P (MAP) Pulse Ox O2 Delivery O2 Flow Rate FiO2 12/29/24 08:00 Room Air 0.0 12/29/24 06:00 97.9 65 17 92/55 (67) 99 Result Diagram: 12/29/24 0811 12/29/24 0811 Problem\Assessment\Plan Problems/Diagnosis: (1) Gravely disabled This is a 44-year-old male who speaks limited Spanish and is fluent in Mandarin Trinidadian a came in with an ALISA/ severe dehydration due to lack of p.o. intake for one-week the patient was made a 5150 in the ED in his on a 1799 hold Her serum potassium was 2.9 this morning however this was resolved with potassium supplementation in his 4.2 this afternoon. The patient is medically cleared to be evaluated by [facility] in the a.m. Additional Plan # gravely disabled # failure to thrive currently on a 1799.11 hold A sitter is ordered IV fluid resuscitation # hypernatremia Resolved with D5W drip # ALISA secondary to dehydration/possible vasomotor nephropathy Serum osmolality is 318 Nearly resolved with D5W drip continue to monitor daily CMP 12/27 significantly improved serum osmolality is now 303 12/28 resolved # hypokalemia On the potassium replacement protocol 12/27 resolved DVT prophylaxis SQ Lovenox Disposition: Medically cleared to be evaluated by [facility] Date of Service: Dec 29, 2024 Billing Provider: SHARON GALAN MD Common Visit Codes: [id number] INP/OBS CARE(HIGH) SHARON GALAN MD Dec 29, 2024 10:44
== END 2024-12-29 16:12 | disposition home or self-care (01) | DRG 426 ==
LOC: ER 15:37 → ED HOLD 12-26 10:20 → SUR 3N 12-26 16:40
PROVIDERS: ADMIT Family Medicine; ATTEND Family Medicine
DX: E87.0 Hyperosmolality and hypernatremia (principal); N17.0 Acute kidney failure with tubular necrosis; E87.6 Hypokalemia; F20.9 Schizophrenia, unspecified; Z20.822 Contact with and (suspected) exposure to COVID-19; F41.9 Anxiety disorder, unspecified; E86.0 Dehydration; R62.7 Adult failure to thrive; Z87.891 Personal history of nicotine dependence; Z68.1 Body mass index [BMI] 19.9 or less, adult
CPT/HCPCS: 36415; 80048; 80053; 80305; 81001; 83735; 83930; 84443; 85025; 87081; 87811; 96360; 99285; G0378; J3480; J7040; J7042; J7070; J7120

== ENCOUNTER 2024-12-30 15:10 | Inpatient (IN) | payer MEDICAID ==
[~2024-12-30] VITALS: Ht 160 cm; Wt 58.1 kg
[~2024-12-30 15:10] MED LIST changes: -LORA-269 PO; -NO HOME MEDS; +OLAN5TAB29 PO; +UNABLE TO OBTAIN
[2024-12-30 16:21] LABS: LEUKOCYTE ESTERASE ,URINE NEGATIVE (Neg); NITRITES, URINE NEGATIVE (Neg); OCCULT BLOOD,URINE NEGATIVE (Neg)
[2024-12-30 16:30] LABS: MUCUS STRANDS MODERATE /LPF (Neg); UA COLLECTION TYPE NON-SPECIFIED
[2024-12-30 16:31] LABS: AMORPHOUS PHOSPHATES 2+; SQUAMOUS EPITHELIAL CELL,UR NONE SEEN /LPF (FEW)
[2024-12-30 16:35] LABS: MEAN PLATELET VOLUME 8.8 FL (7.4-10.4); RED CELL DISTRIBUTION WIDTH 13.3 % (11.5-14.5)
[2024-12-30 16:48] LABS: CREATININE 0.96 MG/DL (0.60-1.10); TOTAL CARBON DIOXIDE 32.3 MMOL/L (24-32); eCRCL 78 ML/MIN; eGFR 85 ML/MIN
--- NOTE | 2024-12-30 17:17 | Physician Documentation ---
History of Present Illness ~ Chief Complaint: 5150 Stated Complaint: EVAL Time Seen by MD: 15:54 Primary Medical Doctor: UNK Mode of Arrival: POV HPI 44 year old male with history of schizophrenia brought in for psych evaluation for refusing to eat/drink. He was seen here last week for similar episode. Denies medical complaints otherwise. Medication Reconciliation Allergies: Coded Allergies: No Known Allergies (Unverified , 05/27/24) Miscellaneous Medications Home Med List (No Home Medications), (Reported) Past Medical History Patient History: Patient reports no known family medical history. Review of Systems All Other Systems at this time: Reviewed and Negative Physical Exam Vital Signs: Temperature: 99.4, Heart Rate: 86, Respiratory Rate: 14, BP: 107/71, Pulse Oximetry: 98, Weight: 57.400 Oxygen Flow Rate: 0 Physical Exam HEENT: PERRL, moist oral mucosa, EOMI Pulmonary: No respiratory distress MSK: no deformity Skin: w/d/i, no rash Neuro: alert, nonfocal Psych: normal affect Progress Results/Orders Results/Orders Orders - GUILLERMO VANG MD 1799.11 (12/31/24 07:45) General Nursing Order (12/31/24 ) Completed Orders - GUILLERMO VANG MD Olanzapine Disint. Tablet (Zyprexa Zydis (12/31/24 08:00) Regular Diet (12/31/24 Lunch) Regular Diet (12/31/24 Breakfast) Drug Screen, Urine (12/31/24 07:39) Laboratory Tests Test 12/30/24 15:52 12/30/24 16:21 12/30/24 22:35 12/31/24 08:11 Urine Specimen Description Non-specified Urine Color Yellow Urine Clarity Slightly cloudy Urine pH 8.0 Urine Specific [place] 1.015 Urine Protein Trace Urine Glucose (UA) Negative Urine Ketones Negative Urine Occult Blood Negative Urine Nitrite Negative Urine Bilirubin Negative Urine Urobilinogen 0.2 Urine Leukocyte Esterase Negative Urine RBC 0-2 Urine WBC 0-4 Urine Squamous Epithelial Cells None seen Urine Amorphous Phosphates 2+ Urine Bacteria Few Urine Mucus Moderate Urine Culture Indicated Not ind Volume Urine Centrifuged 10 ml Urine Comment White Blood Count 5.4 Red Blood Count 4.63 L Hemoglobin 14.5 Hematocrit 42.1 Mean Corpuscular Volume 91.1 Mean Corpuscular Hemoglobin 31.5 H Mean Corpuscular Hemoglobin Concent 34.5 Red Cell Distribution Width 13.3 Platelet Count 126 L Mean Platelet Volume 8.8 Neutrophils (%) (Auto) 69.4 Lymphocytes (%) (Auto) 23.8 Monocytes (%) (Auto) 5.0 Eosinophils (%) (Auto) 1.4 Basophils (%) (Auto) 0.4 Neutrophils # (Auto) 3.7 Lymphocytes # (Auto) 1.3 Monocytes # (Auto) 0.3 Eosinophils # (Auto) 0.1 Basophils # (Auto) 0.0 CBC Comment Sodium Level 141 Potassium Level 4.1 Chloride Level 104 Carbon Dioxide Level 32.3 H Anion Gap 5 L Blood Urea Nitrogen 16 Creatinine 0.96 Estimated GFR/1.73 m2 85 BUN/Creatinine Ratio 16.7 Glucose Level 107 H Hemoglobin A1c 5.3 Calcium Level 8.9 Total Bilirubin 0.6 Aspartate Amino Transf (AST/SGOT) 30 Alanine Aminotransferase (ALT/SGPT) 43 Alkaline Phosphatase 62 Total Protein 7.1 Albumin 3.9 Globulin 3.2 Albumin/Globulin Ratio 1.2 Triglycerides Level 74 Cholesterol Level 136 LDL Cholesterol 72 HDL Cholesterol 44 Cholesterol/HDL Ratio 3.1 Chemistry Comments SARS-CoV-2 Antigen (Rapid) Negative Urine Opiates Screen Negative Urine Methadone Screen Negative Urine Fentanyl Screen Negative Urine Barbiturates Screen Negative Urine Phencyclidine Screen Negative Urine Amphetamines Screen Negative Urine Benzodiazepines Screen Negative Urine Cocaine Screen Negative Urine Cannabinoids Screen Negative Drug Screen Comment Medical Decision Making Findings 44 year old male with anorexia and history of schizophrenia. Medically clear for [facility] evaluation. Will transfer care to oncoming ER physician for disposition. Differential Dx:Considerations: Include: Alcohol abuse, Anxiety, Bipolar disorder, Depression, Encephaloathy, Homicidal, Personality disorder, Schizophrenia, Substance abuse, Suicidal Addendum I received sign-out on this patient at shift change. Please see previous information. No acute events during my shift. The patient will be signed out at shift change [place] [facility] [place]. Alden Matthews MD I received sign-out on this patient at shift change. Patient is stable in his now medically cleared for psychiatric evaluation. Guillermo Vang MD Departure Disposition: 30 STILL A PATIENT Impression: Primary Impression: Acute psychosis Condition: Stable Referrals: NO PRIMARY CARE PROVIDER (PCP) Education Educated: Patient Educated regarding: diagnosis, treatment, prognosis, need for follow up Signature Scribe Signature: . Attestation: . OFELIA BEDOYA MD Dec 30, 2024 17:16 ALDEN MATTHEWS MD Dec 31, 2024 05:32 GUILLERMO VANG MD Dec 31, 2024 09:55
[2024-12-30] MEDS ORDERED: OLAN2.5T77 PO (23:12)
[2024-12-31 08:43] LABS: URINE AMPHETAMINE SCREEN NEGATIVE (Neg); URINE BARBITUATE SCREEN NEGATIVE (Neg); URINE BENZODIAZEPINES SCREEN NEGATIVE (Neg); URINE CANNABINOID SCREEN NEGATIVE (Neg); URINE COCAINE SCREEN NEGATIVE (Neg); URINE METHADONE SCREEN NEGATIVE (Neg); URINE OPIATE SCREEN NEGATIVE (Neg); URINE PHENCYCLIDINE SCREEN NEGATIVE (Neg)
[2024-12-31] MEDS: OLANZapine 5mg rapidly disint. tablet PO SCH (10:07)
[2024-12-31] MEDS ORDERED: NICOTINE POLACRILEX 2 MG LOZENGE BC PRN (22:10)
[2024-12-31] MEDS ORDERED: loperamide 2mg capsule PO PRN (22:10)
[2024-12-31] MEDS ORDERED: magnesium hydroxide 30ml (MOM) UD suspension PO PRN (22:10)
[2024-12-31] MEDS ORDERED: mag hydrox/Alum hydrox/simeth 30ml oral suspension PO PRN (22:10)
[2024-12-31 22:14] VITALS: BP 102/69; PULSE 77; RESP 16; TEMP 97.9; O2SAT 99
[2024-12-31 22:47] VITALS: RESP 18
[2024-12-31] MEDS ORDERED: NO HOME MEDS (22:58)
[2025-01-01 05:32] LABS: CHOL/HDL RATIO 3.1 (0.00-4.99); LDL CHOLESTEROL 72 MG/DL (50-100)
[2025-01-01 07:00] VITALS: RESP 14; O2SAT 99
[2025-01-01 08:00] VITALS: BP 102/67; PULSE 72; RESP 14; TEMP 98; O2SAT 99
[2025-01-01] MEDS ORDERED: nicotine 21mg patch - 24 hr TD SCH (08:00)
--- NOTE | 2025-01-01 13:07 | HISTORY AND PHYSICAL ---
History & Physical - Blank History and Physical Mr Riki Milner is a 44 year old male with history of schizophrenia [facility] for psych evaluation for refusing to eat/drink. Per he is doing it for God. He was just d/c from [facility] Medical floor for the same, but then went home and stopped taking medications. He thinks he is 'healed.' He stopped eating due to baptist practices. Patient is a short Mandarin male of normal. Short black hair. Wearing glasses. Wearing green hospital scrubs. He declines an pressroom foreman tonight. States he can speak and understand simple Ethiopian. Spent too much time sleeping today. Feeling bad. Medicine morning and evening. Thinks meds too much. Denies depression or sadness. Denies SI. At home fasting. Eating and drinking here. Taking medicine. Stopped meds two months ago because 'I feel I'm healed and I'm good.' He says he will stay on medicine when he goes home. Denies AH/Denies VH. Denies someone watching him or out to harm him. Sleep all night. BM this afternoon. ALLERGIES: NKDA LABS: 12/30/2024 CBC-- WNL CMP-- Creatinine 0.96, eGFR 85, albumin 3.9 UA- Neg infx- trace protein, NEG Ketones Eye contact: Fair; Behavior: Cooperative and pleasant. Speech: Fairly regular. Mood: 'I'm fine.' Affect: Mildly Constricted. Thought process: No real disorganization, Fairly linear. Denies Paranoia Having Bahai Delusions. Th ought Content: immediate needs/medications. Cognition: A&O X3 not truly why; Insight: Seems a little impaired. Judgment: Poor; SI Denies/HI Denies, AH Denies/VH Denies Past Psychiatric History Past Psychiatric History In beginning of year at [facility] 'some mental disease.' Thinks he has anxiety. For two months feels he is healed and no fear. Emotions are good. Doesn't feel he had a problem. For two months didn't have any medicine. Past Medical History Past Medical History Denies. Past Surgical History Past Surgical History Denies Past Family History Patient History: Patient reports no known family medical history. Substance Abuse History Substance Abuse History Denies. No smoking Personal History Current Living Situation Lives in [place] with and 2 kids. 15yo girl and 9yo girl Marital & Relationship History nearly 17y 2 girls 15yo, 9yo. 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 Social Activity Born [place] and moved to [place] 2018 Raised by both mother and father 1 older sister. Good in school. Alevism Gnosticism. Legal History None History None Developmental History Childhood defer Assessment/Plan Problems/Diagnosis: (1) Acute psychosis Assessment & Plan: Change Zyprexa to only HS because in AM makes him tired. Says can talk with his , Sara- doesn't remember the phone number. Will have to have SW get this tomorrow. Zyprexa 10mg HS Monitoring by Staff, Milieu, Group, and Individual counseling as needed -- According to the [place] Suicide Assessment the above named patient is on Q 15 MINUTE CHECKS. GD-- The patient is unable to formulate a viable plan for food, clothing and group home. We are still titrating medications to an effective dose while maintaining a therapeutic environment to prevent decompensation and readmission. DISCHARGE UNSURE AT THIS TIME. DISCHARGE HOME ONCE STABLE. REVIEW OF Clinical notes [X ] RN notes [X] PCT documentation [X] SW notes [X] Labs [ X] Medications [X] Care trends/care activity [X] Vitals [X] DISCUSSION WITH mechanical drafter [X] (2) Gravely disabled CODING VISIT-PSYCHIATRY Date of Service: Jan 01, 2025 Billing Provider: BIANCA GONZALES Psych Common Visit Codes: [id number] INP/OBS CARE (Mod) BIANCA GONZALES Jan 01, 2025 13:07
[2025-01-01 19:00] VITALS: RESP 18; O2SAT 98
[2025-01-01] MEDS: OLANZapine 5mg rapidly disint. tablet PO ONE (19:19)
[2025-01-01 20:00] VITALS: BP 94/59; PULSE 71; RESP 18; TEMP 97.2; O2SAT 98
[2025-01-02 07:00] VITALS: RESP 16; O2SAT 99
[2025-01-02 08:06] VITALS: BP 97/60; PULSE 70; RESP 16; TEMP 97.5; O2SAT 99
--- NOTE | 2025-01-02 14:28 | PROGRESS NOTE ---
Progress Note Dictate Providers to CC ~ Central Line/PICC still needed: N\\A Antibiotic Ordered?: No MRSA Education MRSA Education Provided to pt: No Objective Vitals Vital Signs Date Time Temp Pulse Resp B/P (MAP) Pulse Ox O2 Delivery O2 Flow Rate FiO2 01/02/25 08:06 97.5 70 16 97/60 (72) 99 Room Air 01/01/25 07:00 0.0 Lab Results: 12/30/24 1621 12/30/24 1621 Problem\\Assessment\\Plan Problems/Diagnosis: (1) Acute psychosis Psychiatrist's Progress Note Date of Service: Jan 02, 2025 Notes CHART REVIEW Patient was brought up from ED overflow via wheelchair at 2158 on 12/31/24. Patient was placed on a 5150 for GD as patient stopped eating and drinking at home and was non-compliant with medications. Patient stated he stopped eating and drinking because he was fasting. Patient endorsed listening to denominational music and fasting for mandaen beliefs. Patient reported that he stopped taking his medications prior to his last hold because "I felt healed and did not need them anymore". Patient denies SI/AVH/HI at this time. Patient physical assessment and vitals were within normal limits. Patient is Mandarin speaking but is able to understand Croatian and when asked if he wanted his forms in Mandarin he declined. ASSESSMENT The patient was interviewed in observation room. The patient was actively walking in room. The patient endorses "Good." 'My family brought me hear concerned about my mental health." "I feel I am good not need the medicine." "I stopped for almost 2 months." I am all good no problems." The patient endorses he will not take his medication when he gets home. "My mouth was dry and I was sleeping too much." The patient endorses he stopped eating because "I not feel good because of no food." Denies SI. Denies HI. Denies AVH. The patient is stable no acute distress noted. The patient presents as disorganized, irritable and agitated (when I kept asking questions), and engaged during session. Per staff report patient is medication compliant. Per staff report no abnormal behaviors. Will continue daily assessment and adjusting treatment as needed. Closely monitor behavior and response to medication during hospitalization. I believe there is a language barrier but patient refuses to use media relations director services, Results Of any Diagn. Testing REVIEW OF LABS LABS: 12/30/2024 CBC-- WNL CMP-- Creatinine 0.96, eGFR 85, albumin 3.9 UA- Neg infx- trace protein, NEG Ketones Appearnace: Other (THIN TALL MANDARIN MALE. BLACK HAIR. WEARING GLASSES. WEARING GREEN SCRUBS.) Speech: Other (CIRCUMSTANTIAL) Eye Contact: Other (INTERMITTENT) Motor Activity: Normal Affect: Constricted Mood: Irritable Orientation Impairment: None Memory Impairment: None Attention: Normal Hallucinations: None Other: None Suicidality: None Homicidality: None Delusions: None Behavior: Agitated Insight: Poor Judgment: Poor Treatment OLANZAPINE 10 MG P.O. Q.H.S. THORAZINE 50 MG P.O. Q.6 PRN BENADRYL 50 MG P.O. Q.6 PRN HYDROXYZINE 50 MG P.O. Q.6 PRN TRAZODONE 50 MG P.O. Q.H.S. PRN 5150-GD-- The patient is unable to formulate a viable plan for food, clothing and detention. We are still titrating medications to an effective dose while maintaining a therapeutic environment to prevent decompensation and readmission. Monitoring by Staff, Milieu, Group, and Individual counseling as needed -- According to the [place] Suicide Assessment the above named patient is on Q15 MINUTE CHECKS. Total time spent 45 minutes on REVIEW OF Clinical notes [X ] RN notes [X] PCT documentation [X] SW notes Labs [ X] Medications [X] Care trends/care activity [X] Vitals [X] DISCUSSION WITH computer programmer analyst [X] Staff SW Treatment Team [X] Discharge UNSURE AT THIS TIME. DISCHARGE HOME ONCE STABLE. CODING VISIT-PSYCHIATRY Date of Service: Jan 02, 2025 Billing Provider: KIMBERLY RIVER APRN Psych Common Visit Codes: [id number] INP/OBS CARE(Mod) KIMBERLY RIVER APRN Jan 02, 2025 14:28
--- NOTE | 2025-01-02 18:48 | HISTORY AND PHYSICAL-Residence ---
History & Physical Providers to CC Resident Creating Document: JAMA ROBLES, RES ~ History of Present Illness Primary Medical Doctor: UNK Reason for Admit\Complaint: Refusing to eat and drink. History of Present Illness 44-year-old male patient without significant past medical history came to the hospital brought by his family due to concerns of stopping eating and drinking for some months. Per he is doing it for God. He was just d/c from [facility] Medical floor for the same, but then went home and stopped taking medications. He thinks he is 'healed.' He stopped eating due to sikh practices. The patient currently denies any medical complaint, denies chest pain, shortness of breath, palpitations, urinary or intestinal symptoms. Allergies: Coded Allergies: No Known Allergies (Unverified , 05/27/24) Home Medications Home Medications Active Reported No Home Medications (Home Med List) Each Past Medical History Past Medical History Denies Past Surgical History Surgical History Comment Denies Family History Family History: Patient reports no known family medical history. Past Social History Smoking: Non-Smoker Alcohol Use: None Drug Use: None Lives with: Family Lives In: Home Occupation: employed [employer] All Other Systems: Reviewed and Negative Exam Vitals: Vital Signs Date Time Temp Pulse Resp B/P (MAP) Pulse Ox O2 Delivery O2 Flow Rate FiO2 01/02/25 08:06 97.5 70 16 97/60 (72) 99 Room Air 01/01/25 07:00 0.0 Physical exam: General: Well alert, well oriented, not confused, not agitated, not in acute distress, well cooperated during the physical. HEENT: Conjunctive are pink, sclerae clear, no icterus, pupil is equal in both sides, reactive to light, no ear discharge, no pharyngeal erythema or an edema. Neck: Supple, no JVD, no lymphadenopathy and thyromegaly. Chest: Equal air entry on both lungs, no additional sounds no rhonchi no wheezing at the moment. Cardiovascular: S1-S2 regular sinus rhythm and, regular rate, no gallops, no rubs, no murmurs Abdomen: No visible peristalsis, Bowel sounds present on auscultation, soft, nontender, no guarding, no rigidity Extremities: No obvious deformities, no pitting edema bilaterally, capillary refill intact, peripheral pulsations are intact on both sides Central Nervous System: No focal neurological deficits, no motor or sensory weakness in all 4 extremities, could move all 4 extremities, 2+ deep tendon reflexes, negative Babinski. Musculoskeletal: No joint swelling, deformities, inflammations, and no scoliosis and back tenderness Skin: Warm and dry. Diagnostic Data Last Recorded Lab Results: 12/30/24 1621 12/30/24 1621 Additional Plan Assessment and plan: Patient has been admitted to Behavioral here after he stopped eating and drinking. Acute psychosis: Continue management as per psychiatrist. Disposition: Hospitalist team will continue to monitor the patient. Jama Licona Internal Medicine Resident [facility] Date of Service: Jan 02, 2025 Billing Provider: GUY FAYE MD Common Visit Codes: [id number] INP/OBS CARE (HIGH) JAMA ROBLES, RES Jan 02, 2025 18:48 GUY FAYE MD Jan 04, 2025 07:11
[2025-01-02 19:00] VITALS: RESP 16; O2SAT 100
[2025-01-02 20:00] VITALS: BP 113/70; PULSE 77; RESP 16; TEMP 97.2; O2SAT 100
[2025-01-02] MEDS: OLANZapine 5mg rapidly disint. tablet PO SCH (21:07)
[2025-01-03 07:00] VITALS: RESP 16; O2SAT 100
[2025-01-03 08:07] VITALS: BP 101/65; PULSE 56; RESP 16; TEMP 97.7; O2SAT 100
--- NOTE | 2025-01-03 11:41 | PROGRESS NOTE ---
Progress Note Dictate Providers to CC ~ Central Line/PICC still needed: N\\A Antibiotic Ordered?: No MRSA Education MRSA Education Provided to pt: No Objective Vitals Vital Signs Date Time Temp Pulse Resp B/P (MAP) Pulse Ox O2 Delivery O2 Flow Rate FiO2 01/03/25 08:07 97.7 56 16 101/65 (77) 100 Room Air 01/01/25 07:00 0.0 Lab Results: 12/30/24 1621 12/30/24 1621 Problem\\Assessment\\Plan Problems/Diagnosis: (1) Acute psychosis Psychiatrist's Progress Note Date of Service: Jan 03, 2025 Notes CHART REVIEW Patient was brought up from ED overflow via wheelchair at 2158 on 12/31/24. Patient was placed on a 5150 for GD as patient stopped eating and drinking at home and was non-compliant with medications. Patient stated he stopped eating and drinking because he was fasting. Patient endorsed listening to synagogue music and fasting for jain beliefs. Patient reported that he stopped taking his medications prior to his last hold because "I felt healed and did not need them anymore". Patient denies SI/AVH/HI at this time. Patient physical assessment and vitals were within normal limits. Patient is Mandarin speaking but is able to understand Kenyan and when asked if he wanted his forms in Mandarin he declined. ASSESSMENT The patient was interviewed in observation room. The patient was actively walking in room. The patient endorses "I am sleepy, I can not have too much medication." "Too much medicine in my body." "I feel I am good I don't need the medicine. The patient endorses adequate sleep and food intake. Denies SI. Denies HI. Denies AVH. The patient is stable no acute distress noted. The patient presents as calm, cooperative, and engaged during session. The patient's Rey called requesting the patient receive and MARTINEZ before returning home. Extensive education giving to the patient regarding MARTINEZ and he declined. Per staff report patient is medication compliant. Per staff report no abnormal behaviors. Will continue daily assessment and adjusting treatment as needed. Closely monitor behavior and response to medication during hospitalization. Results Of any Diagn. Testing REVIEW OF LABS LABS: 12/30/2024 CBC-- WNL CMP-- Creatinine 0.96, eGFR 85, albumin 3.9 UA- Neg infx- trace protein, NEG Ketones Appearnace: Other (THIN MANDARIN MALE. BLACK HAIR. WEARING GLASSES. WEARING GREEN SCRUBS) Speech: Impoverished Eye Contact: Avoidant Motor Activity: Normal Affect: Flat Hallucinations: None Other: None Suicidality: None Homicidality: None Delusions: None Behavior: Guarded Insight: Poor Judgment: Poor Treatment OLANZAPINE 10 MG P.O. Q.H.S. THORAZINE 50 MG P.O. Q.6 PRN BENADRYL 50 MG P.O. Q.6 PRN HYDROXYZINE 50 MG P.O. Q.6 PRN TRAZODONE 50 MG P.O. Q.H.S. PRN 5250-GD-- The patient is unable to formulate a viable plan for food, clothing and [facility]. We are still titrating medications to an effective dose while maintaining a therapeutic environment to prevent decompensation and readmission. Monitoring by Staff, Milieu, Group, and Individual counseling as needed -- According to the [place] Suicide Assessment the above named patient is on Q15 MINUTE CHECKS. Total time spent 40 minutes on REVIEW OF Clinical notes [X ] RN notes [X] PCT documentation [X] SW notes Labs [ X] Medications [X] Care trends/care activity [X] Vitals [X] DISCUSSION WITH ocular care aide [X] Staff SW Treatment Team [X] Discharge UNSURE AT THIS TIME. DISCHARGE HOME ONCE STABLE CODING VISIT-PSYCHIATRY Date of Service: Jan 03, 2025 Billing Provider: KIMBERLY RIVER APRN Psych Common Visit Codes: [id number] INP/OBS CARE(Mod) KIMBERLY RIVER APRN Jan 03, 2025 11:41
[2025-01-03 20:00] VITALS: BP 109/62; PULSE 81; RESP 16; TEMP 98; O2SAT 100
[2025-01-03] MEDS: OLANZAPINE 5 MG TABLET PO SCH (20:47)
[2025-01-04 07:00] VITALS: RESP 16; O2SAT 99
[2025-01-04 08:00] VITALS: BP 108/69; PULSE 63; RESP 16; TEMP 97.8; O2SAT 99
--- NOTE | 2025-01-04 12:25 | PROGRESS NOTE ---
Progress Note Dictate Providers to CC ~ Central Line/PICC still needed: N\\A Antibiotic Ordered?: No MRSA Education MRSA Education Provided to pt: No Objective Vitals Vital Signs Date Time Temp Pulse Resp B/P (MAP) Pulse Ox O2 Delivery O2 Flow Rate FiO2 01/04/25 08:00 97.8 63 16 108/69 (82) 99 Room Air 01/04/25 07:00 0.0 Lab Results: 12/30/24 1621 Problem\\Assessment\\Plan Problems/Diagnosis: (1) Acute psychosis Psychiatrist's Progress Note Date of Service: Jan 04, 2025 Notes CHART REVIEW Patient was brought up from ED overflow via wheelchair at 2158 on 12/31/24. Patient was placed on a 5150 for GD as patient stopped eating and drinking at home and was non-compliant with medications. Patient stated he stopped eating and drinking because he was fasting. Patient endorsed listening to faith music and fasting for advent beliefs. Patient reported that he stopped taking his medications prior to his last hold because "I felt healed and did not need them anymore". Patient denies SI/AVH/HI at this time. Patient physical assessment and vitals were within normal limits. Patient is Mandarin speaking but is able to understand Ecuadorean and when asked if he wanted his forms in Mandarin he declined. ASSESSMENT The patient was interviewed in observation room. The patient was actively walking in room. The patient endorses "Good, the medicine good." The patient was informed he had court tomorrow. "I get to go home." The patient was informed it depend on the senior quality assurance specialist if he is discharged tomorrow. "What is a senior quality assurance specialist can you write that word down." The patient endorses adequate sleep and food intake. Denies SI. Denies HI. Denies AVH. The patient is stable no acute distress noted. The patient presents as calm, cooperative, and engaged during session. The was edcated that he needs to stay on his medication once he is discharged. The patient endorses "I know." Per staff report patient is medication compliant. Per staff report no abnormal behaviors. Will continue daily assessment and adjusting treatment as needed. Closely monitor behavior and response to medication during hospitalization. Results Of any Diagn. Testing REVIEW OF LABS LABS: 12/30/2024 CBC-- WNL CMP-- Creatinine 0.96, eGFR 85, albumin 3.9 UA- Neg infx- trace protein, NEG Ketones Appearnace: Other (THIN MANDARIN MALE. BLACK HAIR. WEARING GLASSES. WEARING GREEN SCRUBS)) Speech: Other (CIRCUMSTANTIAL) Eye Contact: Normal Motor Activity: Normal Affect: Full Mood: Euthymic Orientation Impairment: None Memory Impairment: None Attention: Normal Hallucinations: None Other: None Suicidality: None Homicidality: None Delusions: None Behavior: Cooperative Insight: Poor Judgment: Poor Treatment OLANZAPINE 10 MG P.O. Q.H.S. THORAZINE 50 MG P.O. Q.6 PRN BENADRYL 50 MG P.O. Q.6 PRN HYDROXYZINE 50 MG P.O. Q.6 PRN TRAZODONE 50 MG P.O. Q.H.S. PRN 5250-GD-- The patient is unable to formulate a viable plan for food, clothing and half-way. We are still titrating medications to an effective dose while maintaining a therapeutic environment to prevent decompensation and readmission. Monitoring by Staff, Milieu, Group, and Individual counseling as needed -- According to the [place] Suicide Assessment the above named patient is on Q15 MINUTE CHECKS. Total time spent 35 minutes on REVIEW OF Clinical notes [X ] RN notes [X] PCT documentation [X] SW notes Labs [ X] Medications [X] Care trends/care activity [X] Vitals [X] DISCUSSION WITH sports attorney [X] Staff SW Treatment Team [X] Discharge UNSURE AT THIS TIME. DISCHARGE HOME ONCE STABLE CODING VISIT-PSYCHIATRY Date of Service: Jan 04, 2025 Billing Provider: KIMBERLY RIVER APRN Psych Common Visit Codes: [id number] INP/OBS CARE(Mod) KIMBERLY RIVER APRN Jan 04, 2025 12:25
[2025-01-04 19:00] VITALS: RESP 16; O2SAT 100
--- NOTE | 2025-01-04 19:34 | PROGRESS NOTE- Residence ---
Progress Note - Resident Providers to CC Resident Creating Document: SERA POTTS RES ~ Antibiotic Timeout Antibiotic Ordered?: No Subjective Patient seen and examined at bedside. He is comfortably sitting in the room and watching outside the window. No medical concerns or complaints at this time. Objective Vital Signs Date Time Temp Pulse Resp B/P (MAP) Pulse Ox O2 Delivery O2 Flow Rate FiO2 01/04/25 08:00 97.8 63 16 108/69 (82) 99 Room Air 01/04/25 07:00 0.0 Result Diagram: 12/30/24 1621 General: Awake and Alert, no acute distress. HEENT: Conjunctiva pink, Sclera clear, Mucus Membranes moist. Neck: Supple without masses and tenderness. Resp: Unlabored. Equal breath sounds bilaterally. Heart: Regular rhythm, normal S1 and S2, no rub, murmur or gallop. Abdomen: Soft and non tender no organomegaly. Normal bowel sounds x4 quadrant normoactive. No guarding or rigidity. Extremities: Normal ROM, no swelling, nontender. No cyanosis,clubbing or edema. WIRE DRAWING SETTER: No gross motor or sensory abnormalities. Skin: Warm and Dry. Assessment Assessment Patient admitted to Behavioral Health for acute psychosis Plan Plan Acute psychosis No medical concerns or complaints at this time Management per psychiatrist hospitalist team will continue to follow. Date of Service: Jan 04, 2025 Billing Provider: GUY FAYE MD Common Visit Codes: [id number] INP/OBS CARE(MOD) SERA POTTS RES Jan 04, 2025 19:34 GUY FAYE MD Jan 04, 2025 21:27
[2025-01-04 20:00] VITALS: BP 104/69; PULSE 87; RESP 16; TEMP 98.1; O2SAT 100
[2025-01-05 07:30] VITALS: BP 90/51; PULSE 67; RESP 16; TEMP 98.1; O2SAT 98
[2025-01-05 19:00] VITALS: RESP 16; O2SAT 94
--- NOTE | 2025-01-05 19:11 | PROGRESS NOTE ---
Progress Note Dictate Providers to CC ~ Central Line/PICC still needed: N\\A Antibiotic Ordered?: No MRSA Education MRSA Education Provided to pt: No Objective Vitals Vital Signs Date Time Temp Pulse Resp B/P (MAP) Pulse Ox O2 Delivery O2 Flow Rate FiO2 01/05/25 07:30 16 98 Room Air 0.0 01/05/25 07:30 98.1 67 90/51 (64) Lab Results: 12/30/24 1621 Problem\\Assessment\\Plan Problems/Diagnosis: (1) Acute psychosis Psychiatrist's Progress Note Date of Service: Jan 05, 2025 Notes CHART REVIEW Patient was brought up from ED overflow via wheelchair at 2158 on 12/31/24. Patient was placed on a 5150 for GD as patient stopped eating and drinking at home and was non-compliant with medications. Patient stated he stopped eating and drinking because he was fasting. Patient endorsed listening to nondenominational music and fasting for sabianism beliefs. Patient reported that he stopped taking his medications prior to his last hold because "I felt healed and did not need them anymore". Patient denies SI/AVH/HI at this time. Patient physical assessment and vitals were within normal limits. Patient is Mandarin speaking but is able to understand Belizean and when asked if he wanted his forms in Mandarin he declined. ASSESSMENT The patient was interviewed in observation room. The patient was actively walking in room. The patient endorses "Good." "The placing judge let me stay in the hospital for a few days." "My agreed with the placing judge." "I think placing judge wants me to stay her for more treatment for me." "I think I need more days, maybe it is good." The patient endorses adequate sleep and food intake. Denies SI. Denies HI. Denies AVH. The patient is stable no acute distress noted. The patient presents as calm, cooperative, and engaged during session. The patient was educated that he needs to stay on his medication once he is discharged. The patient endorses "I know." Per staff report patient is medication compliant. Per staff report no abnormal behaviors. Will continue daily assessment and adjusting treatment as needed. Closely monitor behavior and response to medication during hospitalization. Results Of any Diagn. Testing REVIEW OF LABS LABS: 12/30/2024 CBC-- WNL CMP-- Creatinine 0.96, eGFR 85, albumin 3.9 UA- Neg infx- trace protein, NEG Ketones Appearnace: Other (THIN MANDARIN MALE. BLACK HAIR. WEARING GLASSES. WEARING GREEN SCRUBS) Speech: Impoverished Eye Contact: Avoidant Motor Activity: Normal Affect: Constricted Orientation Impairment: Place Memory Impairment: None Attention: Normal Hallucinations: None Other: None Suicidality: None Homicidality: None Delusions: None Behavior: Cooperative Insight: Poor Judgment: Poor Treatment Decrease OLANZAPINE 5 MG P.O. Q.H.S. THORAZINE 50 MG P.O. Q.6 PRN BENADRYL 50 MG P.O. Q.6 PRN HYDROXYZINE 50 MG P.O. Q.6 PRN TRAZODONE 50 MG P.O. Q.H.S. PRN 5250-GD-- The patient is unable to formulate a viable plan for food, clothing and intermediate. We are still titrating medications to an effective dose while maintaining a therapeutic environment to prevent decompensation and readmission. Monitoring by Staff, Milieu, Group, and Individual counseling as needed -- According to the [place] Suicide Assessment the above named patient is on Q15 MINUTE CHECKS. Total time spent 30 minutes on REVIEW OF Clinical notes [X ] RN notes [X] PCT documentation [X] SW notes Labs [ X] Medications [X] Care trends/care activity [X] Vitals [X] DISCUSSION WITH housekeeping lead [X] Staff SW Treatment Team [X] Discharge UNSURE AT THIS TIME. DISCHARGE HOME ONCE STABLE CODING VISIT-PSYCHIATRY Date of Service: Jan 05, 2025 Billing Provider: KIMBERLY RIVER APRN Psych Common Visit Codes: [id number] INP/OBS CARE(Mod) KIMBERLY RIVER APRN Jan 05, 2025 19:11
[2025-01-05 20:00] VITALS: BP 90/62; PULSE 60; RESP 16; TEMP 98; O2SAT 94
[2025-01-06 07:30] VITALS: BP 98/66; PULSE 72; RESP 16; TEMP 98.1; O2SAT 98
--- NOTE | 2025-01-06 14:00 | PROGRESS NOTE ---
Progress Note Dictate Providers to CC ~ Central Line/PICC still needed: N\\A Antibiotic Ordered?: No MRSA Education MRSA Education Provided to pt: No Objective Vitals Vital Signs Date Time Temp Pulse Resp B/P (MAP) Pulse Ox O2 Delivery O2 Flow Rate FiO2 01/06/25 07:30 98.1 72 16 98/66 (77) 98 Room Air 0.0 Problem\\Assessment\\Plan Problems/Diagnosis: (1) Acute psychosis Psychiatrist's Progress Note Date of Service: Jan 06, 2025 Notes CHART REVIEW Patient was brought up from ED overflow via wheelchair at 2158 on 12/31/24. Patient was placed on a 5150 for GD as patient stopped eating and drinking at home and was non-compliant with medications. Patient stated he stopped eating and drinking because he was fasting. Patient endorsed listening to taoist music and fasting for presybeterian beliefs. Patient reported that he stopped taking his medications prior to his last hold because "I felt healed and did not need them anymore". Patient denies SI/AVH/HI at this time. Patient physical assessment and vitals were within normal limits. Patient is Mandarin speaking but is able to understand Tanzanian and when asked if he wanted his forms in Mandarin he declined. ASSESSMENT The patient was interviewed in observation room. The patient was actively sitting in room looking out window. The patient endorses "good." "I don't know if I will take my medicine." "Maybe when I go home I am good." "Right now I don't know the future." "I am good, I am healed no medicine." The patient endorses adequate sleep and food intake. Denies SI. Denies HI. Denies AVH. The patient is stable no acute distress noted. The patient presents as calm, cooperative, and engaged during session. The patient laughed during conversation regarding him taking his medication. Per staff report patient is medication compliant. Per staff report no abnormal behaviors. Will continue daily assessment and adjusting treatment as needed. Closely monitor behavior and response to medication during hospitalization. Results Of any Diagn. Testing REVIEW OF LABS LABS: 12/30/2024 CBC-- WNL CMP-- Creatinine 0.96, eGFR 85, albumin 3.9 UA- Neg infx- trace protein, NEG Ketones Speech: Impoverished Eye Contact: Normal Motor Activity: Normal Affect: Constricted Orientation Impairment: None Memory Impairment: None Attention: Normal Hallucinations: None Other: None Suicidality: None Homicidality: None Delusions: Mandaen Behavior: Cooperative Insight: Poor Judgment: Fair, Poor Treatment OLANZAPINE 5 MG P.O. Q.H.S. THORAZINE 50 MG P.O. Q.6 PRN BENADRYL 50 MG P.O. Q.6 PRN HYDROXYZINE 50 MG P.O. Q.6 PRN TRAZODONE 50 MG P.O. Q.H.S. PRN 5250-GD-- The patient is unable to formulate a viable plan for food, clothing and fdc. We are still titrating medications to an effective dose while maintaining a therapeutic environment to prevent decompensation and readmission. Monitoring by Staff, Milieu, Group, and Individual counseling as needed -- According to the [place] Suicide Assessment the above named patient is on Q15 MINUTE CHECKS. Total time spent 40 minutes on REVIEW OF Clinical notes [X ] RN notes [X] PCT documentation [X] SW notes Labs [ X] Medications [X] Care trends/care activity [X] Vitals [X] DISCUSSION WITH railcar switchman [X] Staff SW Treatment Team [X] Discharge UNSURE AT THIS TIME. DISCHARGE HOME ONCE STABLE CODING VISIT-PSYCHIATRY Date of Service: Jan 06, 2025 Billing Provider: KIMBERLY RIVER APRN Psych Common Visit Codes: [id number] INP/OBS CARE(Mod) KIMBERLY RIVER APRN Jan 06, 2025 14:00
[2025-01-06 19:00] VITALS: RESP 16; O2SAT 100
--- NOTE | 2025-01-06 19:00 | PROGRESS NOTE- Residence ---
Progress Note - Resident Providers to CC Resident Creating Document: SERA POTTS RES ~ Antibiotic Timeout Antibiotic Ordered?: No Subjective Patient seen and examined at bedside. He is comfortably sitting in the room and watching outside the window, having a nice mountain view. No medical concerns or complaints at this time. Objective Vital Signs Date Time Temp Pulse Resp B/P (MAP) Pulse Ox O2 Delivery O2 Flow Rate FiO2 01/06/25 07:30 98.1 72 16 98/66 (77) 98 Room Air 0.0 General: Awake and Alert, no acute distress. HEENT: Conjunctiva pink, Sclera clear, Mucus Membranes moist. Neck: Supple without masses and tenderness. Resp: Unlabored. Equal breath sounds bilaterally. Heart: Regular rhythm, normal S1 and S2, no rub, murmur or gallop. Abdomen: Soft and non tender no organomegaly. Normal bowel sounds x4 quadrant normoactive. No guarding or rigidity. Extremities: Normal ROM, no swelling, nontender. No cyanosis,clubbing or edema. PREANALYTICS TEAM LEAD: No gross motor or sensory abnormalities. Skin: Warm and Dry. Assessment Assessment Patient admitted to Behavioral Health for acute psychosis Plan Plan Acute psychosis No medical concerns or complaints at this time Management per psychiatrist hospitalist team will continue to follow. Date of Service: Jan 06, 2025 Billing Provider: GUY FAYE MD Common Visit Codes: [id number] INP/OBS CARE(MOD) SERA POTTS RES Jan 06, 2025 19:00 GUY FAYE MD Jan 06, 2025 21:27
[2025-01-06 20:00] VITALS: BP 98/72; PULSE 77; RESP 16; TEMP 98; O2SAT 100
[2025-01-07 07:30] VITALS: BP 103/63; PULSE 67; RESP 16; TEMP 96.6; O2SAT 99
--- NOTE | 2025-01-07 12:25 | PROGRESS NOTE ---
Progress Note Dictate Providers to CC ~ Central Line/PICC still needed: N\A Antibiotic Ordered?: No Objective Vitals Vital Signs Date Time Temp Pulse Resp B/P (MAP) Pulse Ox O2 Delivery O2 Flow Rate FiO2 01/07/25 07:30 16 99 Room Air 0.0 01/07/25 07:30 96.6 67 103/63 (76) Problem\Assessment\Plan Problems/Diagnosis: (1) Acute psychosis (2) Gravely disabled Psychiatrist's Progress Note Date of Service: Jan 07, 2025 Notes Mr Riki Milner is a 44 year old male with history of schizophrenia [facility] for psych evaluation for refusing to eat/drink. Per he is doing it for God. He was just d/c from [facility] Medical floor for the same, but then went home and stopped taking medications. He thinks he is 'healed.' He stopped eating due to cheondoism practices. Patient is a short Mandarin male of normal. Short black hair. Wearing glasses. Wearing green hospital scrubs. He declines an revit drafter. States he can speak and understand simple Paraguayan. Patient is A&O x3. Does not truly understand why he is here. He can tell you that it's because he was fasting... and was healed, but doesn't understand the why. He says he is doing 'good.' 'okay'. 'not sure if med is helping or not'. Here he is eating and drinking, at home he isn't sure if he will or not. When he was at home he felt 'good, no medicine.' 'If I'm healed I don't need the medicine.' He states 'I have no fear, no worry, no anxiety... hopeful.' Denies depressive sx. He states that he was 'fasting' 'not all the time.' 'several days is safe and good... no problem... not all the time.' He says he drank some water and vomited 'omit' then after that he thought stomach not feeling good so he stopped drinking and eating... he says he is not sure if he goes home if he will fast again or not. 'If I don't have food and water at home, I feel well.' Sometimes AH- 'voices' but not currently. Denies VH. Denies paranoid thinking. Sleep is okay. Mental Status Eye contact: Fair; Behavior: Cooperative and pleasant. Speech: Fairly regular. Mood: 'I'm fine.' Affect: Mildly Constricted. Thought process: No real disorganization, Fairly linear then when you get him to talk it is a little disorganized, but there is a language barrier. Denies Paranoia but seems to be having Pentecostal Delusions. Thought Content: immediate needs/medications. Cognition: A&O X3 not truly why; Insight: Seems a little impaired. Judgment: Poor; SI Denies/HI Denies, AH POS but not current/VH Denies Results Of any Diagn. Testing LABS: 12/30/2024 CBC-- WNL CMP-- Creatinine 0.96, eGFR 85, albumin 3.9 UA- Neg infx- trace protein, NEG Ketones Treatment I'm not seeing why the Olanzapine was decreased... I am going to increase it again to 10mg and see if he clears up -- maybe if we can get him thinking more rationally we can get him to take a MARTINEZ before discharge? INCREASE OLANZAPINE 10 MG P.O. Q.H.S. THORAZINE 50 MG P.O. Q.6 PRN BENADRYL 50 MG P.O. Q.6 PRN HYDROXYZINE 50 MG P.O. Q.6 PRN TRAZODONE 50 MG P.O. Q.H.S. PRN Monitoring by Staff, Milieu, Group, and Individual counseling as needed -- According to the [place] Suicide Assessment the above named patient is on Q 15 MINUTE CHECKS. 5250--GD--The patient is unable to formulate a viable plan for food, clothing and correction. We are still titrating medications to an effective dose while maintaining a therapeutic environment to prevent decompensation and readmission. DISCHARGE UNSURE AT THIS TIME. DISCHARGE HOME ONCE STABLE. REVIEW OF Clinical notes [X ] RN notes [X] PCT documentation [X] SW notes [X] Labs [ X] Medications [X] Care trends/care activity [X] Vitals [X] DISCUSSION WITH probation supervisor [X] CODING VISIT-PSYCHIATRY Date of Service: Jan 07, 2025 Billing Provider: BIANCA GONZALES Psych Common Visit Codes: [id number] INP/OBS CARE(High) BIANCA GONZALES Jan 07, 2025 12:25
[2025-01-07 19:00] VITALS: RESP 15; O2SAT 97
[2025-01-07 20:00] VITALS: BP 99/63; PULSE 74; RESP 16; TEMP 97.9; O2SAT 99
[2025-01-07] MEDS: OLANZAPINE 5 MG TABLET PO SCH (20:54)
[2025-01-08 07:00] VITALS: RESP 12; O2SAT 97
[2025-01-08 08:00] VITALS: BP 89/58; PULSE 67; RESP 12; TEMP 100.1; O2SAT 97
--- NOTE | 2025-01-08 16:58 | PROGRESS NOTE ---
Progress Note Dictate Providers to CC ~ Central Line/PICC still needed: N\\A Antibiotic Ordered?: No Objective Vitals Vital Signs Date Time Temp Pulse Resp B/P (MAP) Pulse Ox O2 Delivery O2 Flow Rate FiO2 01/08/25 08:00 100.1 67 12 89/58 (68) 97 Room Air 01/07/25 19:00 0.0 Problem\\Assessment\\Plan Problems/Diagnosis: (1) Acute psychosis (2) Gravely disabled Psychiatrist's Progress Note Date of Service: Jan 08, 2025 Notes Mr Riki Milner is a 44 year old male with history of schizophrenia [facility] for psych evaluation for refusing to eat/drink. Per he is doing it for God. He was just d/c from [facility] Medical floor for the same, but then went home and stopped taking medications. He thinks he is 'healed.' He stopped eating due to adventism practices. Patient is a short thin Mandarin male. Short black hair. Wearing glasses. Wearing green hospital scrubs. He declines an computer clerk. States he can speak and understand simple Icelandic. He is very polite and smiles a lot. Not too interested in doing activities. Denies Depression, no sadness, no anxiety, worry or fear. Sometimes voices but focus his mind on something else- 'not too much'. 'no problem.' Denies Visual hallucinations. Denies Paranoia. Eating and drinking good. Medication makes helps me sleeping at night. Thoughts years ago. refuses to think about past. Live right now. 'focus right now.' He says "I'm good.' 'No mental problems and no mental disease.' At the first of the year he did but he says after that he says 'my mental problem is already healed by myself.' 'Now I feel I'm good.' No problem.' He was having anxiety problems, but now 'I feel I'm healed and no problem.' 'I think it's spiritual, not mental.' 'my mind is good.' 'no mental health problem.' 'I think the medicine didn't help me too much, only with sleep.' 'I feel in my heart I'm good. No worry, No anxiety, No fear, I am hopeful. Feel love.' He states he isn't sure if he will fast again when he leaves. It isn't his choice or his will it is Gods. Mental Status Eye contact: Fair; Behavior: Cooperative and pleasant. Speech: Fairly regular. Mood: 'I'm fine.' Affect: Mildly Constricted. Thought process: No real disorganization, Fairly linear. Denies Paranoia but Possibly having Muslim Delusions. Thought Content: immediate needs/medications. Cognition: A&O X3 not truly why; Insight: Seems a little impaired. Judgment: Poor; SI Denies/HI Denies, AH POS but not current/VH Denies Results Of any Diagn. Testing LABS: 12/30/2024 CBC-- WNL CMP-- Creatinine 0.96, eGFR 85, albumin 3.9 UA- Neg infx- trace protein, NEG Ketones Treatment I'm not seeing why the Olanzapine was decreased... I am going to increase it again to 10mg and see if he clears up -- maybe if we can get him thinking more rationally we can get him to take a MARTINEZ before discharge? INCREASE OLANZAPINE 10 MG P.O. Q.H.S. THORAZINE 50 MG P.O. Q.6 PRN BENADRYL 50 MG P.O. Q.6 PRN HYDROXYZINE 50 MG P.O. Q.6 PRN TRAZODONE 50 MG P.O. Q.H.S. PRN Monitoring by Staff, Milieu, Group, and Individual counseling as needed -- According to the [place] Suicide Assessment the above named patient is on Q 15 MINUTE CHECKS. 5250--GD--The patient is unable to formulate a viable plan for food, clothing and assisted. We are still titrating medications to an effective dose while maintaining a therapeutic environment to prevent decompensation and readmission. DISCHARGE UNSURE AT THIS TIME. DISCHARGE HOME ONCE STABLE. REVIEW OF Clinical notes [X ] RN notes [X] PCT documentation [X] SW notes [X] Labs [ X] Medications [X] Care trends/care activity [X] Vitals [X] DISCUSSION WITH expediter [X] CODING VISIT-PSYCHIATRY Date of Service: Jan 08, 2025 Billing Provider: BIANCA GONZALES Psych Common Visit Codes: [id number] INP/OBS CARE(Mod) BIANCA GONZALES Jan 08, 2025 16:58
--- NOTE | 2025-01-08 18:43 | PROGRESS NOTE ---
Daily Progress Note Providers to CC ~ Antibiotic Timeout Antibiotic Ordered?: No Subjective This is the hospitalist progress note on patients hospitalized at [facility] [place] for [facility] health.. The patient ate his entire dinner the patient has no acute medical complaints or concerns nor were there any voiced by nursing staff Objective Vital Signs Date Time Temp Pulse Resp B/P (MAP) Pulse Ox O2 Delivery O2 Flow Rate FiO2 01/08/25 08:00 100.1 67 12 89/58 (68) 97 Room Air 01/07/25 19:00 0.0 Gen. No acute distress alert and oriented Lungs clear to ascultation bilaterally, no wheezes rales or rhonchi appreciated Heart normal sinus rhythm no murmurs rubs or clicks noted Abdomen soft nontender bowel sounds are normoactive Lower extremities no clubbing cyanosis, nor edema appreciated bilaterally Problem\Assessment\Plan Problems/Diagnosis: (1) Gravely disabled # Gravely disabled # Psychosis NOS Followed by Psychiatry # hypernatremia Resolved with IV fluid resuscitation # ALISA possibly secondary to vasomotor nephropathy Resolved with IV fluid resuscitation The hospitalist service will continue to follow the patient while hospitalized at [facility] Date of Service: Jan 08, 2025 Billing Provider: NOEL LERNER DO Common Visit Codes: [id number] INP/OBS CARE(LOW) NOEL LERNER DO Jan 08, 2025 18:43
[2025-01-08 19:00] VITALS: RESP 16; O2SAT 98
[2025-01-08 20:00] VITALS: BP 116/71; PULSE 62; RESP 16; TEMP 97.4; O2SAT 16
[2025-01-09 08:06] VITALS: BP 94/61; PULSE 60; RESP 14; TEMP 97.9; O2SAT 99
--- NOTE | 2025-01-09 15:09 | PROGRESS NOTE ---
Progress Note Dictate Providers to CC ~ Central Line/PICC still needed: N\\A Antibiotic Ordered?: No MRSA Education MRSA Education Provided to pt: No Objective Vitals Vital Signs Date Time Temp Pulse Resp B/P (MAP) Pulse Ox O2 Delivery O2 Flow Rate FiO2 01/09/25 08:06 97.9 60 14 94/61 (72) 99 Room Air 01/09/25 08:00 0.0 Problem\\Assessment\\Plan Problems/Diagnosis: (1) Acute psychosis Psychiatrist's Progress Note Date of Service: Jan 09, 2025 Notes CHART REVIEW Patient was brought up from ED overflow via wheelchair at 2158 on 12/31/24. Patient was placed on a 5150 for GD as patient stopped eating and drinking at home and was non-compliant with medications. Patient stated he stopped eating and drinking because he was fasting. Patient endorsed listening to bahai music and fasting for hoahaoism beliefs. Patient reported that he stopped taking his medications prior to his last hold because "I felt healed and did not need them anymore". Patient denies SI/AVH/HI at this time. Patient physical assessment and vitals were within normal limits. Patient is Mandarin speaking but is able to understand Divehi and when asked if he wanted his forms in Mandarin he declined. ASSESSMENT The patient was interviewed in observation room. The patient was actively sitting in room looking out window. The patient endorses "Good." "No problem." Patient endorses "I do not know if I will continue to take the medicine." The patient endorses adequate sleep and food intake. Denies SI. Denies HI. Denies AVH. The patient is stable no acute distress noted. The patient presents as calm, cooperative, and engaged during session. Per staff report patient is medication compliant. Per staff report no abnormal behaviors. Will continue daily assessment and adjusting treatment as needed. Closely monitor behavior and response to medication during hospitalization. The patient refuses to use cigarette inspector. Unsure if patient completely understands this senior underwriter or mental health issues. Results Of any Diagn. Testing REVIEW OF LABS LABS: 12/30/2024 CBC-- WNL CMP-- Creatinine 0.96, eGFR 85, albumin 3.9 UA- Neg infx- trace protein, NEG Ketones Appearnace: Other Speech: Other (CIRCUMSTANTIAL) Eye Contact: Normal Motor Activity: Normal Affect: Constricted Orientation Impairment: None Memory Impairment: None Attention: Normal Hallucinations: None Other: None Suicidality: None Homicidality: None Delusions: None Behavior: Cooperative Insight: Poor Judgment: Poor Treatment OLANZAPINE 10 MG P.O. Q.H.S. THORAZINE 50 MG P.O. Q.6 PRN BENADRYL 50 MG P.O. Q.6 PRN HYDROXYZINE 50 MG P.O. Q.6 PRN TRAZODONE 50 MG P.O. Q.H.S. PRN 5250-GD-- The patient is unable to formulate a viable plan for food, clothing and usp. We are still titrating medications to an effective dose while maintaining a therapeutic environment to prevent decompensation and readmission. Monitoring by Staff, Milieu, Group, and Individual counseling as needed -- According to the [place] Suicide Assessment the above named patient is on Q15 MINUTE CHECKS. Total time spent 45 minutes on REVIEW OF Clinical notes [X ] RN notes [X] PCT documentation [X] SW notes Labs [ X] Medications [X] Care trends/care activity [X] Vitals [X] DISCUSSION WITH mines safety engineer [X] Staff SW Treatment Team [X] Discharge UNSURE AT THIS TIME. DISCHARGE HOME ONCE STABLE CODING VISIT-PSYCHIATRY Date of Service: Jan 09, 2025 Billing Provider: KIMBERLY RIVER APRN Psych Common Visit Codes: [id number] INP/OBS CARE(Mod) KIMBERLY RIVER APRN Jan 09, 2025 15:09
[2025-01-09 19:00] VITALS: RESP 16; O2SAT 99
[2025-01-09 20:00] VITALS: BP 95/57; PULSE 75; RESP 16; TEMP 97.1; O2SAT 99
[2025-01-10 07:11] VITALS: BP 100/60; PULSE 65; RESP 20; TEMP 97.6; O2SAT 98
--- NOTE | 2025-01-10 15:20 | PROGRESS NOTE ---
Progress Note Dictate Providers to CC ~ Central Line/PICC still needed: N\\A Antibiotic Ordered?: No MRSA Education MRSA Education Provided to pt: No Objective Vitals Vital Signs Date Time Temp Pulse Resp B/P (MAP) Pulse Ox O2 Delivery O2 Flow Rate FiO2 01/10/25 08:00 Room Air 0.0 01/10/25 07:11 97.6 65 20 100/60 (73) 98 Problem\\Assessment\\Plan Problems/Diagnosis: (1) Acute psychosis Psychiatrist's Progress Note Date of Service: Jan 10, 2025 Notes CHART REVIEW Patient was brought up from ED overflow via wheelchair at 2158 on 12/31/24. Patient was placed on a 5150 for GD as patient stopped eating and drinking at home and was non-compliant with medications. Patient stated he stopped eating and drinking because he was fasting. Patient endorsed listening to protestant music and fasting for jew beliefs. Patient reported that he stopped taking his medications prior to his last hold because "I felt healed and did not need them anymore". Patient denies SI/AVH/HI at this time. Patient physical assessment and vitals were within normal limits. Patient is Mandarin speaking but is able to understand Cypriot and when asked if he wanted his forms in Mandarin he declined. ASSESSMENT The patient was interviewed in observation room. The patient was actively sitting in room looking out window. The patient endorses "I feel good." "I want to go home next week because the software developer said I have to stay in the hospital for 2 week stay." The patient endorses adequate sleep and food intake. Denies SI. Denies HI. Denies AVH. The patient is stable no acute distress noted. The patient presents as calm,cooperative, and engaged during session. The patient was laughing during session. Per staff report patient is medication compliant. Per staff report no abnormal behaviors. Will continue daily assessment and adjusting treatment as needed. Closely monitor behavior and response to medication during hospitalization. The patient refuses to use shellfish farming supervisor. Results Of any Diagn. Testing REVIEW OF LABS LABS: 12/30/2024 CBC-- WNL CMP-- Creatinine 0.96, eGFR 85, albumin 3.9 UA- Neg infx- trace protein, NEG Ketones Appearnace: Other Speech: Other (CIRCUMSTANTIAL ) Eye Contact: Normal Motor Activity: Normal Affect: Constricted Mood: Euthymic Orientation Impairment: None Memory Impairment: None Attention: Normal Hallucinations: None Other: None Suicidality: None Homicidality: None Delusions: None Behavior: Cooperative Insight: Poor Judgment: Poor Treatment OLANZAPINE 10 MG P.O. Q.H.S. THORAZINE 50 MG P.O. Q.6 PRN BENADRYL 50 MG P.O. Q.6 PRN HYDROXYZINE 50 MG P.O. Q.6 PRN TRAZODONE 50 MG P.O. Q.H.S. PRN 5250-GD-- The patient is unable to formulate a viable plan for food, clothing and chcf. We are still titrating medications to an effective dose while maintaining a therapeutic environment to prevent decompensation and readmission. Monitoring by Staff, Milieu, Group, and Individual counseling as needed -- According to the [place] Suicide Assessment the above named patient is on Q15 MINUTE CHECKS. Total time spent 30 minutes on REVIEW OF Clinical notes [X ] RN notes [X] PCT documentation [X] SW notes Labs [ X] Medications [X] Care trends/care activity [X] Vitals [X] DISCUSSION WITH communication spec [X] Staff SW Treatment Team [X] Discharge UNSURE AT THIS TIME. DISCHARGE HOME ONCE STABLE CODING VISIT-PSYCHIATRY Date of Service: Jan 10, 2025 Billing Provider: KIMBERLY RIVER APRN Psych Common Visit Codes: [id number] INP/OBS CARE(Mod) KIMBERLY RIVER APRN Jan 10, 2025 15:20
--- NOTE | 2025-01-10 17:25 | PROGRESS NOTE ---
Daily Progress Note Providers to CC ~ Antibiotic Timeout Antibiotic Ordered?: No Subjective Seen in his room looks comfortable no concerns getting ready for dinner. A mbulating well Objective Vital Signs Date Time Temp Pulse Resp B/P (MAP) Pulse Ox O2 Delivery O2 Flow Rate FiO2 01/10/25 08:00 Room Air 0.0 01/10/25 07:11 97.6 65 20 100/60 (73) 98 General-patient not in any acute distress, alert awake age-appropriate, looks comfortable HEENT-atraumatic normocephalic, neck supple without elevated JVD, no thyromegaly or carotid bruit. No lymphadenopathy bilaterally. Eyes-no icterus or pallor seen in eyes Chest-clear to auscultation bilaterally, breathing nonlabored no tachypnea, no wheezing, no crepitation, no crackles. Heart-S1-S2 normal, regular heart rate no murmur Abdomen bowel sounds positive on auscultation, soft nondistended nontender no guarding, no rigidity Skin no active skin rash Neurology-grossly intact, nonfocal alert awake oriented Extremity- no pedal edema able to move all 4 extremities, ambulates Psychiatry - patient is not confused or agitated cooperated during physical examination Problem\Assessment\Plan Problems/Diagnosis: (1) Gravely disabled # Gravely disabled # Psychosis NOS Followed by Psychiatry # hypernatremia Resolved with IV fluid resuscitation # ALISA possibly secondary to vasomotor nephropathy Resolved with IV fluid resuscitation The hospitalist service will continue to follow the patient while hospitalized at [facility] Date of Service: Jan 10, 2025 Billing Provider: BRANDI MASSEY MD Common Visit Codes: [id number] INP/OBS CARE(LOW) BRANDI MASSEY MD Jan 10, 2025 17:25
[2025-01-10 19:00] VITALS: RESP 14; O2SAT 99
[2025-01-10 19:45] VITALS: BP 94/59; PULSE 75; RESP 14; TEMP 98.1; O2SAT 99
[2025-01-11 08:00] VITALS: BP 103/59; PULSE 66; RESP 16; TEMP 98.6; O2SAT 98
--- NOTE | 2025-01-11 11:17 | PROGRESS NOTE ---
Progress Note Dictate Providers to CC ~ Central Line/PICC still needed: N\\A Antibiotic Ordered?: No MRSA Education MRSA Education Provided to pt: No Objective Vitals Vital Signs Date Time Temp Pulse Resp B/P (MAP) Pulse Ox O2 Delivery O2 Flow Rate FiO2 01/11/25 08:00 98.6 66 16 103/59 (74) 98 Room Air 01/11/25 08:00 0.0 Problem\\Assessment\\Plan Problems/Diagnosis: (1) Acute psychosis Psychiatrist's Progress Note Date of Service: Jan 11, 2025 Notes CHART REVIEW Patient was brought up from ED overflow via wheelchair at 2158 on 12/31/24. Patient was placed on a 5150 for GD as patient stopped eating and drinking at home and was non-compliant with medications. Patient stated he stopped eating and drinking because he was fasting. Patient endorsed listening to sikh music and fasting for scientologist beliefs. Patient reported that he stopped taking his medications prior to his last hold because "I felt healed and did not need them anymore". Patient denies SI/AVH/HI at this time. Patient physical assessment and vitals were within normal limits. Patient is Mandarin speaking but is able to understand Jamaican and when asked if he wanted his forms in Mandarin he declined. ASSESSMENT The patient was interviewed in observation room. The patient was actively sitting in room looking out window. The patient endorses "Sleepy." Patient endorses that he is sleepy from his medications. "Can we decrease to 7.5." We will decrease Zyprexa to 7.5 mg. I believe this will be beneficial for when the patient gets home if he knows that the 10 mg is making him sleepy he is more likely not to take it. "I want to go home next week because the probate judge said I have to stay in the hospital for 2 week stay." The patient endorses adequate sleep and food intake. Denies SI. Denies HI. Denies AVH. The patient is stable no acute distress noted. The patient presents as calm,cooperative, and engaged during session. Per staff report patient is medication compliant. Per staff report no abnormal behaviors. Will continue daily assessment and adjusting treatment as needed. Closely monitor behavior and response to medication during hospitalization. Results Of any Diagn. Testing REVIEW OF LABS LABS: 12/30/2024 CBC-- WNL CMP-- Creatinine 0.96, eGFR 85, albumin 3.9 UA- Neg infx- trace protein, NEG Ketones Appearnace: Other Speech: Impoverished Eye Contact: Other (INTERMITTENT) Motor Activity: Normal Affect: Constricted Orientation Impairment: None Memory Impairment: None Attention: Normal Hallucinations: None Other: None Suicidality: None Homicidality: None Delusions: None Behavior: Guarded Insight: Poor Judgment: Poor Treatment Decrease OLANZAPINE 7.5 MG P.O. Q.H.S. THORAZINE 50 MG P.O. Q.6 PRN BENADRYL 50 MG P.O. Q.6 PRN HYDROXYZINE 50 MG P.O. Q.6 PRN TRAZODONE 50 MG P.O. Q.H.S. PRN 5250-GD-- The patient is unable to formulate a viable plan for food, clothing and long term. We are still titrating medications to an effective dose while maintaining a therapeutic environment to prevent decompensation and readmission. Monitoring by Staff, Milieu, Group, and Individual counseling as needed -- According to the [place] Suicide Assessment the above named patient is on Q15 MINUTE CHECKS. Total time spent 45 minutes on REVIEW OF Clinical notes [X ] RN notes [X] PCT documentation [X] SW notes Labs [ X] Medications [X] Care trends/care activity [X] Vitals [X] DISCUSSION WITH backroom associate [X] Staff SW Treatment Team [X] Discharge UNSURE AT THIS TIME. DISCHARGE HOME ONCE STABLE CODING VISIT-PSYCHIATRY Date of Service: Jan 11, 2025 Billing Provider: KIMBERLY RIVER APRN Psych Common Visit Codes: [id number] INP/OBS CARE(Mod) KIMBERLY RIVER APRN Jan 11, 2025 11:17
[2025-01-11 19:00] VITALS: RESP 16; O2SAT 100
[2025-01-11 20:00] VITALS: BP 97/55; PULSE 75; RESP 16; TEMP 98.1; O2SAT 100
[2025-01-12 07:00] VITALS: RESP 16; O2SAT 99
[2025-01-12 08:00] VITALS: BP 121/90; PULSE 89; RESP 16; TEMP 97.4; O2SAT 97
--- NOTE | 2025-01-12 15:12 | PROGRESS NOTE ---
Progress Note Dictate Providers to CC ~ Central Line/PICC still needed: N\\A Antibiotic Ordered?: No MRSA Education MRSA Education Provided to pt: No Objective Vitals Vital Signs Date Time Temp Pulse Resp B/P (MAP) Pulse Ox O2 Delivery O2 Flow Rate FiO2 01/12/25 08:00 97.4 89 16 121/90 (100) 97 Room Air 01/11/25 19:00 0.0 Problem\\Assessment\\Plan Problems/Diagnosis: (1) Acute psychosis Psychiatrist's Progress Note Date of Service: Jan 12, 2025 Notes CHART REVIEW Patient was brought up from ED overflow via wheelchair at 2158 on 12/31/24. Patient was placed on a 5150 for GD as patient stopped eating and drinking at home and was non-compliant with medications. Patient stated he stopped eating and drinking because he was fasting. Patient endorsed listening to jain music and fasting for roman catholic beliefs. Patient reported that he stopped taking his medications prior to his last hold because "I felt healed and did not need them anymore". Patient denies SI/AVH/HI at this time. Patient physical assessment and vitals were within normal limits. Patient is Mandarin speaking but is able to understand Korean and when asked if he wanted his forms in Mandarin he declined. ASSESSMENT The patient was interviewed in observation room. The patient was actively walking in hallway. The patient endorses "Good." Patient endorses no worsening mental health symptoms. The patient endorses adequate sleep and food intake. Denies SI. Denies HI. Denies AVH. The patient is stable no acute distress noted. The patient presents as calm,cooperative, and engaged during session. Extensive conversation regarding MARTINEZ but the patient declines. Per staff report patient is medication compliant. Per staff report no abnormal behaviors. Will continue daily assessment and a djusting treatment as needed. Closely monitor behavior and response to medication during hospitalization. Results Of any Diagn. Testing REVIEW OF LABS LABS: 12/30/2024 CBC-- WNL CMP-- Creatinine 0.96, eGFR 85, albumin 3.9 Appearnace: Other Speech: Other (CIRCUMSTANTIAL) Eye Contact: Normal Motor Activity: Normal Affect: Full Mood: Euthymic Orientation Impairment: None Memory Impairment: None Attention: Normal Hallucinations: None Other: None Suicidality: None Homicidality: None Delusions: None Behavior: Cooperative Insight: Poor Judgment: Poor Treatment OLANZAPINE 7.5 MG P.O. Q.H.S. THORAZINE 50 MG P.O. Q.6 PRN BENADRYL 50 MG P.O. Q.6 PRN HYDROXYZINE 50 MG P.O. Q.6 PRN TRAZODONE 50 MG P.O. Q.H.S. PRN 5250-GD-- The patient is unable to formulate a viable plan for food, clothing and retirement. We are still titrating medications to an effective dose while maintaining a therapeutic environment to prevent decompensation and readmission. Monitoring by Staff, Milieu, Group, and Individual counseling as needed -- According to the [place] Suicide Assessment the above named patient is on Q15 MINUTE CHECKS. Total time spent 25 minutes on REVIEW OF Clinical notes [X ] RN notes [X] PCT documentation [X] SW notes Labs [ X] Medications [X] Care trends/care activity [X] Vitals [X] DISCUSSION WITH oncologist [X] Staff SW Treatment Team [X] Discharge UNSURE AT THIS TIME. DISCHARGE HOME ONCE STABLE CODING VISIT-PSYCHIATRY Date of Service: Jan 12, 2025 Billing Provider: KIMBERLY RIVER APRN Psych Common Visit Codes: [id number] INP/OBS CARE(Mod) KIMBERLY RIVER APRN Jan 12, 2025 15:12
--- NOTE | 2025-01-12 15:27 | PROGRESS NOTE ---
Daily Progress Note Providers to CC ~ no complaint today, resting comfortably in the bed Central Line/PICC still needed: No Ellington-Non Protocol Ellington Indications Met/Not Met: F/C Indications Not Met Antibiotic Timeout Antibiotic Ordered?: No MRSA Education MRSA Education Provided to pt: No Subjective As above Objective Vital Signs Date Time Temp Pulse Resp B/P (MAP) Pulse Ox O2 Delivery O2 Flow Rate FiO2 01/12/25 08:00 97.4 89 16 121/90 (100) 97 Room Air 01/11/25 19:00 0.0 Vital signs, stable ,afebrile. Pulse Oximetry reflects adequate oxygenation. BMI is 22 General: well developed, well nourished. Awake , alert, and oriented x4, resting comfortably in the bed, in no acute distress . Skin: Warm, dry, no pallor, no rash or petechiae. HEENT: Atraumatic, normocephalic, EOMI, anicteric sclera B; pink conjunctiva; PERRLA, normal oropharynx, moist oral and nasal mucosa. Tympanic membrane , nose , throat clear. Neck: Trachea midline. Supple, full range of motion, no JVD, bruit , hepatojugular reflex , lymphadenopathy or masses, or other lesions Cardiac: Regular rhythm, regular rate no murmurs, rubs, or gallops. Normal S1 and S2, no S3 noticed. PMI is normal. Respiratory: Equal breath sounds bilaterally, no tachypnea; lungs clear to auscultation bilaterally, no wheezing ,rub or rales, or crackles. Chest wall is symmetric and without deformity. No signs of trauma. Chest wall is nontender. No signs of respiratory distress. Resonance is normal upon percussion bilaterally. Gastrointestinal: Abdomen symmetric, non-distended, soft, non-tender, normal bowel sounds x4 quadrant, normoactive, no hepatosplenomegaly , no masses , no bruit, no flank pain bilaterally. No voluntary guarding, rebound, or rigidity. No tenderness to percussion. No pulsatile masses. Equal femoral pulses. No Chavez's sign or McBurney point tenderness. Back; no CVA tenderness bilaterally, no deformities. Neck and back are without deformity as well. No tenderness noted on palpation of the spinous processes. Spinous processes are midline. Cervical, thoracic, and lumbar paraspinal muscles are not tender and are without spasm. : normal external genitalia, without lesions, swelling, masses or tenderness. Musculoskeletal: Extremities, normal range of motion, non-tender, muscle strength 5/5 x 4. Negative Homans signs bilaterally on lower extremity. Distal pulses full symmetrical, no clubbing, cyanosis , edema. Neurological: Speech is clear, alert, and oriented x 4. No motor or sensory deficit, deep tendon reflexes normal, cerebellar intact. Cranial nerves II-XII intact. Psych: Alert and or appropriate, normal affect. Vascular: Good distal pulses, which are equal x4; capillary refill less than 2 seconds. Lymphatic, no lymphadenopathy. Problem\Assessment\Plan Problems/Diagnosis: (1) Gravely disabled # Gravely disabled # Psychosis NOS Followed by Psychiatry # hypernatremia Resolved with IV fluid resuscitation # ALISA possibly secondary to vasomotor nephropathy Resolved with IV fluid resuscitation The hospitalist service will continue to follow the patient while hospitalized at [facility] Date of Service: Jan 12, 2025 Billing Provider: KERA CONNOLLY MD Common Visit Codes: [id number] INP/OBS CARE(LOW) KERA CONNOLLY MD Jan 12, 2025 15:27
[2025-01-12 19:00] VITALS: RESP 16; O2SAT 97
[2025-01-12 20:00] VITALS: BP 90/74; PULSE 76; RESP 16; TEMP 97.4; O2SAT 97
[2025-01-13 07:00] VITALS: RESP 16; O2SAT 98
--- NOTE | 2025-01-13 07:15 | PROGRESS NOTE ---
Progress Note Dictate Providers to CC ~ Central Line/PICC still needed: N\\A Antibiotic Ordered?: No MRSA Education MRSA Education Provided to pt: No Objective Vitals Vital Signs Date Time Temp Pulse Resp B/P (MAP) Pulse Ox O2 Delivery O2 Flow Rate FiO2 01/12/25 20:00 97.4 76 16 90/74 (79) 97 Room Air 01/11/25 19:00 0.0 Problem\\Assessment\\Plan Problems/Diagnosis: (1) Acute psychosis Psychiatrist's Progress Note Date of Service: Jan 13, 2025 Notes CHART REVIEW Patient was brought up from ED overflow via wheelchair at 2158 on 12/31/24. Patient was placed on a 5150 for GD as patient stopped eating and drinking at home and was non-compliant with medications. Patient stated he stopped eating and drinking because he was fasting. Patient endorsed listening to caodaism music and fasting for adventism beliefs. Patient reported that he stopped taking his medications prior to his last hold because "I felt healed and did not need them anymore". Patient denies SI/AVH/HI at this time. Patient physical assessment and vitals were within normal limits. Patient is Mandarin speaking but is able to understand [place] and when asked if he wanted his forms in Mandarin he declined. ASSESSMENT The patient was interviewed in observation room. The patient was actively walking in hallway. The patient endorses "good." When asked if he will continue to take his medications once discharged the patient endorses "I am not sure" (with a big smile on his face). The patient endorses no worsening mental health symptoms. The patient endorses adequate sleep and food intake. Denies SI. Denies HI. Denies AVH. The patient is stable no acute distress noted. The patient presents as calm,cooperative, and engaged during session. Per staff report patient is medication compliant. Per staff report no abnormal behaviors. Will continue daily assessment and adjusting treatment as needed. Closely monitor behavior and response to medication during hospitalization. The patient would benefit from MARTINEZ but he is reluctant on getting any injection at this time. I do not believe the patient will continue his medication once discharged and he will decompensate quickly and possibly readmission. Extensive education provided on MARTINEZ and medication continuation once discharged but I am not sure how much the patient understood due to language barrier and him refusing to use the lithopone mill worker. Results Of any Diagn. Testing Results Of any Diagn. Testing REVIEW OF LABS LABS: 12/30/2024 CBC-- WNL CMP-- Creatinine 0.96, eGFR 85, albumin 3.9 Appearnace: Other Speech: Other (CIRCUMSTANTIAL) Eye Contact: Normal Motor Activity: Normal Affect: Full Orientation Impairment: None Memory Impairment: None Attention: Normal Hallucinations: None Other: None Suicidality: None Homicidality: None Delusions: None Behavior: Cooperative Insight: Poor Judgment: Poor Treatment OLANZAPINE 7.5 MG P.O. Q.H.S. THORAZINE 50 MG P.O. Q.6 PRN BENADRYL 50 MG P.O. Q.6 PRN HYDROXYZINE 50 MG P.O. Q.6 PRN TRAZODONE 50 MG P.O. Q.H.S. PRN 5250-GD-- The patient is unable to formulate a viable plan for food, clothing and prison. We are still titrating medications to an effective dose while maintaining a therapeutic environment to prevent decompensation and readmission. Monitoring by Staff, Milieu, Group, and Individual counseling as needed -- According to the [place] Suicide Assessment the above named patient is on Q15 MINUTE CHECKS. Total time spent 40 minutes on REVIEW OF Clinical notes [X ] RN notes [X] PCT documentation [X] SW notes Labs [ X] Medications [X] Care trends/care activity [X] Vitals [X] DISCUSSION WITH tribal judge [X] Staff SW Treatment Team [X] Discharge UNSURE AT THIS TIME. DISCHARGE HOME ON TUESDAY 01/16 CODING VISIT-PSYCHIATRY Date of Service: Jan 13, 2025 Billing Provider: KIMBERLY RIVER APRN Psych Common Visit Codes: [id number] INP/OBS CARE(Mod) KIMBERLY RIVER APRN Jan 13, 2025 07:15
[2025-01-13 07:59] VITALS: BP 100/71; PULSE 81; RESP 16; TEMP 97.6; O2SAT 98
[2025-01-13 19:14] VITALS: RESP 17; O2SAT 99
[2025-01-13 19:18] VITALS: BP 102/64; PULSE 71; RESP 17; TEMP 97.9; O2SAT 99
[2025-01-14 08:00] VITALS: BP 105/62; PULSE 67; RESP 16; TEMP 97.5; O2SAT 98
[2025-01-14 08:27] VITALS: RESP 16; O2SAT 98
--- NOTE | 2025-01-14 11:36 | PROGRESS NOTE ---
Progress Note Dictate Providers to CC ~ Central Line/PICC still needed: N\\A Antibiotic Ordered?: No MRSA Education MRSA Education Provided to pt: No Objective Vitals Vital Signs Date Time Temp Pulse Resp B/P (MAP) Pulse Ox O2 Delivery O2 Flow Rate FiO2 01/14/25 08:27 16 98 Room Air 01/14/25 08:00 97.5 67 105/62 (76) 01/11/25 19:00 0.0 Problem\\Assessment\\Plan Problems/Diagnosis: (1) Acute psychosis Psychiatrist's Progress Note Date of Service: Jan 14, 2025 Notes CHART REVIEW Patient was brought up from ED overflow via wheelchair at 2158 on 12/31/24. Patient was placed on a 5150 for GD as patient stopped eating and drinking at home and was non-compliant with medications. Patient stated he stopped eating and drinking because he was fasting. Patient endorsed listening to hindu music and fasting for buddhist beliefs. Patient reported that he stopped taking his medications prior to his last hold because "I felt healed and did not need them anymore". Patient denies SI/AVH/HI at this time. Patient physical assessment and vitals were within normal limits. Patient is Mandarin speaking but is able to understand Urdu and when asked if he wanted his forms in Mandarin he declined. ASSESSMENT The patient was interviewed in observation room. The patient was actively standing in room. The patient endorses "good." "How many pills will I take when I leave." The patient was informed he will take 7.5 mg when he is discharged. When asked what he takes his medications when he leaves the patient endorses "I don't know." The patient endorses no worsening mental health symptoms. The patient endorses adequate sleep and food intake. Denies SI. Denies HI. Denies AVH. The patient is stable no acute distress noted. The patient presents as calm,cook chili perative, and engaged during session. Per staff report patient is medication compliant. Per staff report no abnormal behaviors. Will continue daily assessment and adjusting treatment as needed. Closely monitor behavior and response to medication during hospitalization. Results Of any Diagn. Testing REVIEW OF LABS LABS: 12/30/2024 CBC-- WNL CMP-- Creatinine 0.96, eGFR 85, albumin 3.9 Appearnace: Other Speech: Impoverished Eye Contact: Normal Motor Activity: Normal Affect: Constricted Orientation Impairment: None Memory Impairment: None Attention: Normal Hallucinations: None Other: None Suicidality: None Homicidality: None Delusions: None Behavior: Cooperative Insight: Poor Judgment: Poor Treatment OLANZAPINE 7.5 MG P.O. Q.H.S. THORAZINE 50 MG P.O. Q.6 PRN BENADRYL 50 MG P.O. Q.6 PRN HYDROXYZINE 50 MG P.O. Q.6 PRN TRAZODONE 50 MG P.O. Q.H.S. PRN 5250-GD-- The patient is unable to formulate a viable plan for food, clothing and chcf. We are still titrating medications to an effective dose while main taining a therapeutic environment to prevent decompensation and readmission. Monitoring by Staff, Milieu, Group, and Individual counseling as needed -- According to the [place] Suicide Assessment the above named patient is on Q15 MINUTE CHECKS. Total time spent 35 minutes on REVIEW OF Clinical notes [X ] RN notes [X] PCT documentation [X] SW notes Labs [ X] Medications [X] Care trends/care activity [X] Vitals [X] DISCUSSION WITH operations representative [X] Staff SW Treatment Team [X] Discharge UNSURE AT THIS TIME. DISCHARGE HOME ON TUESDAY 01/16 CODING VISIT-PSYCHIATRY Date of Service: Jan 14, 2025 Billing Provider: KIMBERLY RIVER APRN Psych Common Visit Codes: [id number] INP/OBS CARE(Low) KIMBERLY RIVER APRN Jan 14, 2025 11:36
--- NOTE | 2025-01-14 16:00 | PROGRESS NOTE ---
Daily Progress Note Providers to CC ~ doing fine today, no new complaint Central Line/PICC still needed: No Ellington-Non Protocol Ellington Indications Met/Not Met: F/C Indications Not Met Antibiotic Timeout Antibiotic Ordered?: No MRSA Education MRSA Education Provided to pt: No Subjective As above Objective Vital Signs Date Time Temp Pulse Resp B/P (MAP) Pulse Ox O2 Delivery O2 Flow Rate FiO2 01/14/25 08:27 16 98 Room Air 01/14/25 08:00 97.5 67 105/62 (76) 01/11/25 19:00 0.0 Vital signs, stable ,afebrile. Pulse Oximetry reflects adequate oxygenation. General: well developed, well nourished. Awake , alert, and oriented x4, resting comfortably in the bed, in no acute distress . Skin: Warm, dry, no pallor, no rash or petechiae. HEENT: Atraumatic, normocephalic, EOMI, anicteric sclera B; pink conjunctiva; PERRLA, normal oropharynx, moist oral and nasal mucosa. Tympanic membrane , nose , throat clear. Neck: Trachea midline. Supple, full range of motion, no JVD, bruit , hepatojugular reflex , lymphadenopathy or masses, or other lesions Cardiac: Regular rhythm, regular rate no murmurs, rubs, or gallops. Normal S1 and S2, no S3 noticed. PMI is normal. Respiratory: Equal breath sounds bilaterally, no tachypnea; lungs clear to auscultation bilaterally, no wheezing ,rub or rales, or crackles. Chest wall is symmetric and without deformity. No signs of trauma. Chest wall is nontender. No signs of respiratory distress. Resonance is normal upon percussion bilaterally. Gastrointestinal: Abdomen symmetric, non-distended, soft, non-tender, normal bowel sounds x4 quadrant, normoactive, no hepatosplenomegaly , no masses , no bruit, no flank pain bilaterally. No voluntary guarding, rebound, or rigidity. No tenderness to percussion. No pulsatile masses. Equal femoral pulses. No Chavez's sign or McBurney point tenderness. Back; no CVA tenderness bilaterally, no deformities. Neck and back are without deformity as well. No tenderness noted on palpation of the spinous processes. Spinous processes are midline. Cervical, thoracic, and lumbar paraspinal muscles are not tender and are without spasm. : normal external genitalia, without lesions, swelling, masses or tenderness. Musculoskeletal: Extremities, normal range of motion, non-tender, muscle strength 5/5 x 4. Negative Homans signs bilaterally on lower extremity. Distal pulses full symmetrical, no clubbing, cyanosis , edema. Neurological: Speech is clear, alert, and oriented x 4. No motor or sensory deficit, deep tendon reflexes normal, cerebellar intact. Cranial nerves II-XII intact. Psych: Alert and or appropriate, normal affect. Vascular: Good distal pulses, which are equal x4; capillary refill less than 2 seconds. Lymphatic, no lymphadenopathy. Problem\Assessment\Plan Problems/Diagnosis: (1) Gravely disabled Assessment/plan # Gravely disabled # Psychosis NOS Followed by Psychiatry # hypernatremia Resolved with IV fluid resuscitation # ALISA possibly secondary to vasomotor nephropathy Resolved with IV fluid resuscitation The hospitalist service will continue to follow the patient while hospitalized at [facility] Sepsis Screening Reassessment Date: Jan 14, 2025 Date of Service: Jan 14, 2025 Billing Provider: KERA CONNOLLY MD Common Visit Codes: [id number] INP/OBS CARE(LOW) KERA CONNOLLY MD Jan 14, 2025 16:00
[2025-01-14 19:34] VITALS: BP 97/61; PULSE 71; RESP 15; TEMP 98.1; O2SAT 98
[2025-01-15 08:00] VITALS: BP 101/71; PULSE 70; RESP 14; TEMP 97.1; O2SAT 98
--- NOTE | 2025-01-15 10:41 | PROGRESS NOTE ---
Progress Note Dictate Providers to CC ~ Central Line/PICC still needed: N\\A Antibiotic Ordered?: No MRSA Education MRSA Education Provided to pt: No Objective Vitals Vital Signs Date Time Temp Pulse Resp B/P (MAP) Pulse Ox O2 Delivery O2 Flow Rate FiO2 01/14/25 19:34 15 98 01/14/25 19:34 98.1 71 97/61 (73) Room Air 01/11/25 19:00 0.0 Problem\\Assessment\\Plan Problems/Diagnosis: (1) Acute psychosis Psychiatrist's Progress Note Date of Service: Jan 15, 2025 Notes CHART REVIEW Patient was brought up from ED overflow via wheelchair at 2158 on 12/31/24. Patient was placed on a 5150 for GD as patient stopped eating and drinking at home and was non-compliant with medications. Patient stated he stopped eating and drinking because he was fasting. Patient endorsed listening to presybeterian music and fasting for mormonism beliefs. Patient reported that he stopped taking his medications prior to his last hold because "I felt healed and did not need them anymore". Patient denies SI/AVH/HI at this time. Patient physical assessment and vitals were within normal limits. Patient is Mandarin speaking but is able to understand Latvian and when asked if he wanted his forms in Mandarin he declined. ASSESSMENT The patient was interviewed in observation room. The patient was actively sitting in chair looking out window. The patient endorses "good." "When I leave here tomorrow; I am free." The patient endorses no worsening mental health symptoms. The patient endorses adequate sleep and food intake. Denies SI. Denies HI. Denies AVH. The patient is stable no acute distress noted. The patient presents as calm ,cooperative, and engaged during session. Per staff report patient is medication compliant. Per staff report no abnormal behaviors. Discussion regarding discharging tomorrow and MARTINEZ. The patient declines MARTINEZ. Will continue daily assessment and adjusting treatment as needed. Closely monitor behavior and response to medication during hospitalization. I am not sure how much the patient really understandings there seems to be a huge language barrier but the patient continues to refuse to use sign language interpreter. Results Of any Diagn. Testing REVIEW OF LABS LABS: 12/30/2024 CBC-- WNL CMP-- Creatinine 0.96, eGFR 85, albumin 3.9 Appearnace: Other (THIN TALL MANDARIN MALE. BLACK HAIR. WEARING GLASSES. WEARING GREEN SCRUBS) Speech: Impoverished, Other (CIRCUMSTANTIAL) Eye Contact: Other (INTERMITTENT) Motor Activity: Normal Affect: Full Orientation Impairment: None Memory Impairment: None Attention: Normal Hallucinations: None Other: None Suicidality: None Homicidality: None Delusions: None Behavior: Cooperative Insight: Poor Judgment: Poor Treatment OLANZAPINE 7.5 MG P.O. Q.H.S. THORAZINE 50 MG P.O. Q.6 PRN BENADRYL 50 MG P.O. Q.6 PRN HYDROXYZINE 50 MG P.O. Q.6 PRN TRAZODONE 50 MG P.O. Q.H.S. PRN 5250-GD-- The patient is unable to formulate a viable plan for food, clothing and mcfp. We are still titrating medications to an effective dose while maintaining a therapeutic environment to prevent decompensation and readmission. Monitoring by Staff, Milieu, Group, and Individual counseling as needed -- According to the [place] Suicide Assessment the above named patient is on Q15 MINUTE CHECKS. Total time spent 45 minutes on REVIEW OF Clinical notes [X ] RN notes [X] PCT documentation [X] SW notes Labs [ X] Medications [X] Care trends/care activity [X] Vitals [X] DISCUSSION WITH sebd teacher [X] Staff SW Treatment Team [X] Discharge UNSURE AT THIS TIME. DISCHARGE HOME ON TUESDAY 01/16 CODING VISIT-PSYCHIATRY Date of Service: Jan 15, 2025 Billing Provider: KIMBERLY RIVER APRN Psych Common Visit Codes: [id number] INP/OBS CARE(Low) KIMBERLY RIVER APRN Jan 15, 2025 10:41
[2025-01-15 20:00] VITALS: BP 101/67; PULSE 74; RESP 16; TEMP 98.2; O2SAT 97
[2025-01-16 07:00] VITALS: RESP 16; O2SAT 100
[2025-01-16 08:00] VITALS: BP 105/70; PULSE 65; RESP 16; TEMP 97.9; O2SAT 100
[2025-01-16] MEDS ORDERED: OLAN2.5T77 PO (10:40)
--- NOTE | 2025-01-16 10:40 | DISCHARGE SUMMARY ---
Discharge Summary Providers to CC ~ Discharge Summary Admission Diagnosis: GRAVELY DISABLED.ACUTE PSYCHOSIS Hospital Course DATE OF ADMISSION: DATE OF DISCHARGE: Discharge Diagnosis\\Comment: GRAVELY DISABLED. ACUTE PSYCHOSIS Operations\\Procedures: NONE Consultants: MEDICAL TEAM Complications: NONE Condition on DC: Stable 2 or more antipsychotic used: No 2/more antipsychotic addressed: No Does Patient smoke: No Smoking education given.: No New Medications: Olanzapine (Olanzapine) 2.5 Mg Tablet 7.5 MG PO HS for 30 Days, #90 TAB Discontinued Medications: Home Med List (No Home Medications) Each Discharge Summary: CHART REVIEW Mr Riki Milner is a 44 year old male with history of schizophrenia [facility] for psych evaluation for refusing to eat/drink. Per he is doing it for God. He was just d/c from [facility] Medical floor for the same, but then went home and stopped taking medications. He thinks he is 'healed.' He stopped eating due to taoism practices. Patient actively seen and examined on day of discharge 01/16/2025, by myself, BERNADETTE Pierre. The patient is interviewed in observation room. The patient endorses "Good." Denies SI. Denies HI. Denies AVH. Riki was able to formul ate a safety plan which includes going to the emergency room if symptoms return or worsen. Call [phone] or [phone] for immediate assistance if necessary. During his hospital stay, Riki receive multidisciplinary treatment he adhered to his medication regimen and has been pleasant and cooperative. He denies any suicidal ideation (SI), homicidal ideation (HI), auditory/visual hallucination (HI). Staff has reported no behavioral issues, and the patient has been sleeping well, adequate food intake, with no mood or behavioral changes noted. The patient was E-Scribed a 30 day supply of medication preferred pharmacy. MENTAL STATUS EXAM APPEARANCE: APPROPRIATELY. DRESSED IN STREET CLOTHING. SPEECH: CIRCUMSTANCE EYE CONTACT: NORMAL AFFECT: CONGRUENT WITH MOOD MOOD: "GOOD" ORIENTATION IMPAIRMENT: NONE MEMORY IMPAIRMENT: NONE ATTENTION: NORMAL HALLUCINATIONS: NONE SUICIDALITY: NONE HOMICIDALITY: NONE DELUSIONS: NONE BEHAVIOR: COOPERATIVE, PLEASANT JUDGMENT: FAIR, POOR INSIGHT: POOR Continue Current Inpatient Psychotropic Regimen @ home Follow-Up with Psychiatric Provider Safety Plan Discussed DISCHARGE CONDITION: His readiness for discharge is supported by his stable mental status, adherence to treatment, and proactive approach to managing his mental health. Denies SI. Denies HI. Denies A/V/H. The patient has been informed to continue follow-up care to ensure ongoing support and monitoring. Patient discharged to home. *Problems/Diagnosis: (1) Gravely disabled Status: Acute (2) Acute psychosis Status: Acute Total Time Spent on D/C: > 30 Minutes Counseling Services Smoking & Tobacco Cessation: N/A CODING VISIT-PSYCHIATRY Date of Service: Jan 16, 2025 Billing Provider: KIMBERLY RIVER APRN Psych Common Visit Codes: [id number] DISCH DAY >30min KIMBERLY RIVER APRN Jan 16, 2025 10:40
--- NOTE | 2025-01-16 12:58 | Visit Coding Note ---
Date of Service: Jan 16, 2025 Billing Provider: ROSARIO CABRALES MD Common Visit Codes: NOT BILLABLE ROSARIO CABRALES MD Jan 16, 2025 12:58
--- NOTE | 2025-01-16 12:59 | PROGRESS NOTE ---
Clinical Note Clinical Note Progress Note: Patient is on my rounding list however has already been discharged from [facility]. Patient not seen, not billable ROSARIO CABRALES MD Jan 16, 2025 12:59
== END 2025-01-16 11:35 | disposition home or self-care (01) | DRG 751 ==
LOC: ER 15:12 → ADULT MH 12-31 16:30
PROVIDERS: ADMIT Psychiatry & Neurology Psychiatry; ATTEND Psychiatry & Neurology Psychiatry
DX: F23 Brief psychotic disorder (principal); E87.0 Hyperosmolality and hypernatremia; Z20.822 Contact with and (suspected) exposure to COVID-19
CPT/HCPCS: 36415; 80053; 80061; 80305; 81001; 83036; 85025; 87081; 87811; 99285

== ENCOUNTER 2025-01-25 11:39 | Inpatient (IN) | payer MEDICAID ==
[~2025-01-25] VITALS: Ht 172.7 cm; Wt 57.5 kg
[~2025-01-25 11:39] MED LIST changes: +OLAN2.5T77 PO; -OLAN5TAB29 PO; -UNABLE TO OBTAIN
[2025-01-25] MEDS ORDERED: magnesium Cl slow-release 64mg tablet PO PRN (12:40)
[2025-01-25] MEDS ORDERED: potassium Cl 20 mEq SR tablet PO PRN (12:40)
[2025-01-25] MEDS ORDERED: mag hydrox/Alum hydrox/simeth 30ml oral suspension PO PRN (12:40)
[2025-01-25] MEDS ORDERED: magnesium sulf-water 4G/100mL 100 ML IV PRN (12:40)
[2025-01-25] MEDS ORDERED: magnesium sulf-water 2g/50mL 50 ML IV PRN (12:40)
[2025-01-25] MEDS ORDERED: ringers solution, lacted 1,000 ML IV ONE (12:50)
[2025-01-25] MEDS: ringers solution, lacted 1,000 ML IV ONE ×2 (13:49→15:26)
[2025-01-25] MEDS ORDERED: BUSP7.5T5 PO (14:41)
[2025-01-25] MEDS ORDERED: LORA-269 (14:42)
[2025-01-25] MEDS ORDERED: TRAZ-251 PO (14:42)
[2025-01-25] MEDS ORDERED: HALO5TAB PO (14:43)
[2025-01-25] MEDS: ringers solution, lacted 1,000 ML IV SCH (14:47)
--- NOTE | 2025-01-25 14:48 | HISTORY AND PHYSICAL-Residence ---
History & Physical Providers to CC Resident Creating Document: JOE HOUSTON RES CC: KANU HAILE MD ~ History of Present Illness Primary Medical Doctor: UNK Reason for Admit\Complaint: severe dehydration History of Present Illness 44-year-old male with schizophrenia, anxiety, is transferred from [facility] acute hypernatremia and ALISA. Patient is a Mandarin speaking male, can understand little British and greenhouse or nursery transplanter service was used to communicate with him. Because of hallucinations, patient is not eating any food or drinking water for almost a week. He is severely dehydrated. Patient stated he feels like there is a magic cast on his abdomen and does not want to take any food. He does complain of nausea and he is afraid that whenever he eats he feels more nauseated or he will vomit. Spoke to the patient using the greenhouse or nursery transplanter and reassured him that we will put him on medications for nausea vomitings and encouraged him to eat however patient continues to decline food and today morning he appears severely dehydrated, he is feeling discomfort and would like to get IV fluids. However patient is refusing labs Allergies: Coded Allergies: No Known Allergies (Unverified , 05/27/24) Home Medications Home Medications Active Reported Ativan (Lorazepam) 1 Mg Tablet Trazodone HCl 50 Mg Tablet 0.5-1 Tab PO HS PRN Buspirone Hcl 7.5 Mg Tablet 1 Tab PO HS Olanzapine 2.5 Mg Tablet 3 Tab PO HS Past Medical History Past Medical History Schizophrenia Anxiety Past Surgical History Surgical History Comment No prior surgery Family History Family History: Patient reports no known family medical history. Past Social History Social History Comment He denies smoking, drinking alcohol, illicit drug use He lives with his Smoking: Non-Smoker Alcohol Use: None Drug Use: None Lives with: Family Lives In: Home Occupation: employed ROS ROS All negative except for pertinent positives mentioned in the HPI Exam Vitals: General: Adult male, appears severely dehydrated, tongue is dry, with fruity odor, not in apparent distress Head: Normocephalic with an atraumatic Eyes: Pupils- 3mm, reacting to light, conjunctiva- anicteric Nose and throat: No polyps, septum- normal, no mucosal ulcers Neck: Supple, no lymphadenopathy, no carotid bruit Respiratory: No use of accessory muscles of respiration, Bilateral normal breath sounds heard. No wheeze, rhochi or creps Cardiac: S1-S2 heard, rythm regular, no gallop/murmur Abdomen: non distended, no tenderness, no organomegaly, bowel sounds- heard Extremities: no clubbing, no pedal edema, no deformities, peripheral pulses- 2+ Skin: warm and dry, no rash, no purpura Neuro: No focal deficit, gross cranial nerve exam- normal Advance Care Planning Advanced Care plannin - 30 Minutes (Code status is put as full code by default, as patient is gravely disabled) Additional Plan 44-year-old male, with schizophrenia, anxiety, gravely disabled, admitted for management of severe dehydration and hypernatremia Severe dehydration -patient is refusing to eat or drink, stating he is feeling a magic spell in his abdomen, and doesnt want to take anything -started on IV fluids 2 L LR bolus -followed by LR at 150 cc/hour Hypernatremia -likely hypovolemic hyponatremia -sodium 152 -free water deficit-2.6L -start on D5-1/2NS @ 100 CC/HOUR -follow up on repeat sodium and osmolality Starvation ketoacidosis -not taking food for the past one week -started on IV fluids as mentioned above -follow up on urine ketones ALISA -likely prerenal secondary to renal tubular stasis -baseline creatinine 0.8 -went up to 1.17 -started on IV fluids as mentioned above Schizophrenia Anxiety disorder -continue his medications of olanzapine, lorazepam, trazodone, bupar, haloper idol Gravely disabled -1798 hold, to be renewed tomorrow Severe PEM -nutrition consult, appreciate recs -ensure enlive tid Code Status: FULL CODE Line/tube: PIV DVT prophylaxis: Lovenox Nutrition: Regular diet PT: No Prognosis: Guarded Disposition: Continue care in ortho floor, transferred back to [facility] once ALISA and hypernatremia is resolved Joe Houston MD IM PGY-3 resident Date of Service: Jan 25, 2025 Billing Provider: KANU HAILE MD Common Visit Codes: [id number] INP/OBS CARE (HIGH) JOE HOUSTON, RES Jan 25, 2025 14:48 KANU HAILE MD Feb 13, 2025 13:37
[2025-01-25 17:02] LABS: CREATININE 1.18 MG/DL (0.60-1.10); TOTAL CARBON DIOXIDE 27.5 MMOL/L (24-32); eGFR 67 ML/MIN
[2025-01-25 18:00] VITALS: BP 101/63; PULSE 89; RESP 14; TEMP 97.9; O2SAT 97
[2025-01-25] MEDS: lactose-reduced food (Ensure Enlive) - 237ml bottle PO SCH (18:00)
[2025-01-25 18:17] LABS: LEUKOCYTE ESTERASE ,URINE NEGATIVE (Neg); NITRITES, URINE NEGATIVE (Neg); OCCULT BLOOD,URINE NEGATIVE (Neg)
[2025-01-25 18:19] LABS: UA COLLECTION TYPE NON-SPECIFIED
[2025-01-25 18:24] LABS: MUCUS STRANDS MODERATE /LPF (Neg); SQUAMOUS EPITHELIAL CELL,UR FEW /LPF (FEW)
[2025-01-25 18:25] LABS: FINE GRANULAR CAST 0-3 /LPF (NEGATIVE); HYALINE CASTS 0-3 /LPF (NEGATIVE)
[2025-01-25] MEDS: K and/or MAG REPLACEMENT MC SCH (20:00)
[2025-01-25] MEDS: ondansetron/PF 4mg/2ml inj IV PRN (20:32)
[2025-01-25 22:00] VITALS: BP 102/66; PULSE 58; RESP 13; TEMP 98.2; O2SAT 98
[2025-01-26 05:10] LABS: CREATININE 1.04 MG/DL (0.60-1.10); PHOSPHORUS 3.2 MG/DL (2.3-4.5); TOTAL CARBON DIOXIDE 30.0 MMOL/L (24-32); eGFR 77 ML/MIN
[2025-01-26 06:00] VITALS: BP 111/76; PULSE 57; RESP 16; TEMP 97.6; O2SAT 98
[2025-01-26] MEDS: potassium Cl 20 mEq SR tablet PO PRN (06:02)
[2025-01-26 08:00] VITALS: RESP 16; O2SAT 98
[2025-01-26 10:00] VITALS: BP 107/71; PULSE 59; RESP 15; TEMP 98; O2SAT 97
[2025-01-26] MEDS ORDERED: MVI, adult No.4 with vit. K 10 ML in dextrose 5% water 500ml 500 ML IV SCH (10:35)
--- NOTE | 2025-01-26 12:34 | RADIOLOGY REPORT ---
Date: 01/26/2025 11:28 AM Examination: DI ABDOMEN,SINGLE VIEW(KUB) History: abd pain Comparison: None TECHNIQUE: Frontal views of the abdomen was obtained. FINDINGS: Bowel gas pattern is unremarkable. Moderate stool burden. The lung bases are unremarkable. No acute osseous abnormality identified. IMPRESSION: Nonobstructive bowel gas pattern. Moderate stool burden.
--- NOTE | 2025-01-26 17:24 | PROGRESS NOTE- Residence ---
Progress Note - Resident Providers to CC Resident Creating Document: JOE HOUSTON RES CC: KANU HAILE MD ~ Antibiotic Timeout Antibiotic Ordered?: No Subjective Patient seen today, spoke to him with the help of [employer] lockstitch tunnel elastic operator. after discussion and convincing him, he still declines to eat or drink, stating he was afraid a blood magic spell was cast on his abdomen, he is asking someone to lift that spell. He is also afraid that he will be vomiting if he eats and believes there is no medication that can cure it. I also spoke to the patients and she stated patient hasnt been taking his [facility] meds for 2-3 months and his spiritual beliefs might be contributing to his resistance to eat or drink Objective Vital Signs Date Time Temp Pulse Resp B/P (MAP) Pulse Ox O2 Delivery O2 Flow Rate FiO2 01/26/25 10:00 98.0 59 15 107/71 (83) 97 Room Air Result Diagram: 01/26/25 0430 General: Adult male, appears severely dehydrated, tongue is dry, with whitish layer, with fruity odor, not in apparent distress Head: Normocephalic with an atraumatic Eyes: Pupils- 3mm, reacting to light, conjunctiva- anicteric Nose and throat: No polyps, septum- normal, no mucosal ulcers Neck: Supple, no lymphadenopathy, no carotid bruit Respiratory: No use of accessory muscles of respiration, Bilateral normal breath sounds heard. No wheeze, rhochi or creps Cardiac: S1-S2 heard, rythm regular, no gallop/murmur Abdomen: non distended, no tenderness, no organomegaly, bowel sounds- heard Extremities: no clubbing, no pedal edema, no deformities, peripheral pulses- 2+ Skin: warm and dry, no rash, no purpura Neuro: No focal deficit, gross cranial nerve exam- normal Assessment Assessment 44-year-old male, with schizophrenia, anxiety, gravely disabled, admitted for management of severe dehydration and hypernatremia Plan Plan Severe dehydration -patient is refusing to eat or drink, stating he is feeling a magic spell in his abdomen, and doesnt want to take anything -received 2 L LR bolus yesterday -continue D5W as mentioned below Hypernatremia Hyperchloremia -likely 2/2 hypovolemic hyperatremia/dehydration -sodium 151>>152. s. osm- 335 -free water deficit-2.6L -start on D5W @ 100 cc/hr -stop LR and D50.45 NS Starvation ketoacidosis Self induced starvation 2/2 schizophrenia -not taking food for the past one week -started on IV fluids as mentioned above ALISA -likely prerenal secondary to renal tubular stasis -baseline creatinine 0.8 -1.04>>1.18 -started on IV fluids as mentioned above Hypokalemia -K-3.1 -Taking potassium pills as per protocol Schizophrenia Anxiety disorder -continue his medications of olanzapine, lorazepam, trazodone, bupar, haloperidol Gravely disabled -1798 hold, to be renewed tomorrow Severe PEM -Patient cotinues to refuse foods, he is okay with having tablets that can dissolve in the mouth -ensure enlive tid -monitor for refeeding syndrome when he resumes diet Code Status: FULL CODE Line/tube: PIV DVT prophylaxis: Lovenox Nutrition: Regular diet PT: No Prognosis: Guarded Disposition: Continue care in ortho floor, transfer back to [facility] once ALISA and hypernatremia is resolved Date of Service: Jan 26, 2025 Billing Provider: KANU HAILE MD Common Visit Codes: [id number] INP/OBS CARE(HIGH) JOE HOUSTON, RES Jan 26, 2025 17:24 KANU HAILE MD Feb 13, 2025 13:38
[2025-01-26 18:30] VITALS: BP 96/65; PULSE 62; RESP 15; TEMP 98.2; O2SAT 95
[2025-01-26] MEDS: enoxaparin 40mg/0.4ml syringe SUBCUT SCH (20:00)
[2025-01-26] MEDS: busPIRone 15mg tablet PO SCH (20:23)
[2025-01-26 22:00] VITALS: BP 109/71; PULSE 57; RESP 17; TEMP 98.2; O2SAT 97
[2025-01-27 05:23] LABS: MEAN PLATELET VOLUME 8.3 FL (7.4-10.4); RED CELL DISTRIBUTION WIDTH 13.4 % (11.5-14.5)
[2025-01-27 05:49] LABS: CREATININE 0.86 MG/DL (0.60-1.10); PHOSPHORUS 3.4 MG/DL (2.3-4.5); TOTAL CARBON DIOXIDE 33.1 MMOL/L (24-32); eCRCL 82 ML/MIN; eGFR > 90 ML/MIN
[2025-01-27 06:00] VITALS: BP 104/71; PULSE 60; RESP 18; TEMP 98.5; O2SAT 97
[2025-01-27] MEDS: potassium Cl 40MEQ/1/2NS 520ml 520 ML IV PRN (09:37)
[2025-01-27 10:00] VITALS: BP 107/71; PULSE 61; RESP 15; TEMP 98.1; O2SAT 97
--- NOTE | 2025-01-27 14:35 | PROGRESS NOTE- Residence ---
Progress Note - Resident Providers to CC Resident Creating Document: JOE HOUSTON RES CC: KANU HAILE MD ~ Antibiotic Timeout Antibiotic Ordered?: No Subjective Patient seen today, spoke to him with the help of [employer] sign language interpreter. He still doesnt want to eat/drink, refusing meds and labs. still having thoughts that blood cast was spelled on his abdomen Objective Vital Signs Date Time Temp Pulse Resp B/P (MAP) Pulse Ox O2 Delivery O2 Flow Rate FiO2 01/26/25 22:00 98.2 57 17 109/71 (84) 97 Room Air Result Diagram: 01/27/25 0446 01/27/25 0446 General: Adult male, appears sdehydrated, tongue is dry, with whitish layer, not in apparent distress Head: Normocephalic with an atraumatic Eyes: Pupils- 3mm, reacting to light, conjunctiva- anicteric Nose and throat: No polyps, septum- normal, no mucosal ulcers Neck: Supple, no lymphadenopathy, no carotid bruit Respiratory: No use of accessory muscles of respiration, Bilateral normal breath sounds heard. No wheeze, rhochi or creps Cardiac: S1-S2 heard, rythm regular, no gallop/murmur Abdomen: non distended, no tenderness, no organomegaly, bowel sounds- heard Extremities: no clubbing, no pedal edema, no deformities, peripheral pulses- 2+ Skin: warm and dry, no rash, no purpura Neuro: No focal deficit, gross cranial nerve exam- normal Assessment Assessment 44-year-old male, with schizophrenia, anxiety, gravely disabled, admitted for management of severe dehydration and hypernatremia Plan Plan Severe dehydration -patient is refusing to eat or drink, stating he is feeling a magic spell in his abdomen, and doesnt want to take anything -received 2 L LR bolus yesterday -continue D5W as mentioned below Hypernatremia Hyperchloremia -likely 2/2 hypovolemic hyperatremia/dehydration -sodium 146>>151>>152. s. osm- 335. Sodium improved to 146 -start on D5W @ 100 cc/hr Starvation ketoacidosis Self induced starvation 2/2 schizophrenia -not taking food for the past one week -started on IV fluids as mentioned above ALISA -likely prerenal secondary to renal tubular stasis -baseline creatinine 0.8 -0.8>>1.04>>1.18 -started on IV fluids as mentioned above Hypokalemia -K-2.6 -refusing potassium pills -continue IV kcl per protocol -repeat K at 12 pm Schizophrenia Anxiety disorder -continue his medications of olanzapine, lorazepam, trazodone, buspar, haloperidol -called the [facility] unit this morning at around 11 am, and informed them as patient needs a psych consult and the nurse informed me that the provider was seeing other patients and we will let them know, and to expect a call back. Later that afternoon patient nurse informed me that she was told that the psych provider has left for the day. vice president of consulting services was also informed regarding this patient and she also spoke to the [facility] regarding the consult and patient's is doing his decision making and they would like to give him iv or im injections -we need psych consult for iv depo injections as patient is non compliant for oral meds Gravely disabled -1798 hold, daily renewal Severe PEM -Patient cotinues to refuse foods, he is okay with having tablets that can dissolve in the mouth -ensure enlive tid -monitor for refeeding syndrome when he resumes diet Code Status: FULL CODE Line/tube: PIV DVT prophylaxis: Lovenox Nutrition: Regular diet PT: No Prognosis: Guarded Disposition: Continue care in ortho floor, transfer back to [facility] once ALISA and hypernatremia is resolved Date of Service: Jan 27, 2025 Billing Provider: KANU HAILE MD Common Visit Codes: [id number] INP/OBS CARE(HIGH) JOE HOUSTON, RES Jan 27, 2025 14:35 KANU HAILE MD Feb 13, 2025 13:38
--- NOTE | 2025-01-27 15:21 | HISTORY AND PHYSICAL ---
History & Physical - Blank Past Family History Patient History: Patient reports no known family medical history. KIMBERLY RIVER SETTLEMENT TECHNICIAN Jan 27, 2025 15:21
--- NOTE | 2025-01-27 17:05 | PROGRESS NOTE ---
Progress Note Dictate Providers to CC ~ Central Line/PICC still needed: N\\A Antibiotic Ordered?: No MRSA Education MRSA Education Provided to pt: No Objective Vitals Vital Signs Date Time Temp Pulse Resp B/P (MAP) Pulse Ox O2 Delivery O2 Flow Rate FiO2 01/27/25 10:00 98.1 61 15 107/71 (83) 97 Room Air Lab Results: 01/27/25 0446 01/27/25 1424 Psychiatrist's Progress Note Date of Service: Jan 27, 2025 Notes PATIENT NAME: ASHVIN YUEN DATE OF EVALUATION: JANUARY 27, 2025 CONSULTING PROVIDER: BERNADETTE MORENO CONSULTING SERVICE: PSYCHIATRY MANAGING MEDICAL PROVIDER: KANU HAILE MD REASON FOR CONSULTATION: MEDICATION MANAGEMENT ASSESSMENT: The patient was interviewed in designated room with Sinhala Mandarin author agent . The patient was actively resting in bed with his eyes open. The patient endorses "SO, SO, YEAH OKAY.' The patient denies pain or discomfort. Asked the patient why he is not eating, the patient endorses "after I eat my condition very terrible.' when asked to explain what he means by his condition very terrible if he eats; the patient endorses "I told you doctor already." "nausea, nausea." Extensive discussion with patient regarding his able to make medical decisions for him. "I do not know why my mind is clear." The patient endorses no worsening mental health symptoms. Denies SI. Denies HI. When asked if there are voices that other people cant hear telling you not to eat or drink: "No" When asked if you see things that other people can't see, "No". Denies AVH. The patient endorses adequate sleep. The patient is stable no acute distress noted. The patient as calm, cooperative, and engaged during session. Discussion regarding MARTINEZ to ensure medication compliance once discharge. The patient refused. Per staff report the patient has been refusing medications. The patient agreed to take Zyprexa. "I want the one that will melt in my mouth." Will continue daily assessment and adjusting treatment as needed. Closely monitor behavior and response to medication during hospitalization. Dr. Phelps was consulted. APPEARANCE: TALL, THIN MANDARIN MALE.LOOKS STATED AGE. SPEECH: SLOW EYE CONTACT: INTERMITTENT MOTOR ACTIVITY:SLOW AFFECT: FLAT MOOD: "SO, SO, YEAH OKAY' ORIENTATION IMPAIRMENT: NONE A/O X4 MEMORY IMPAIRMENT: NONE ATTENTION: FULL HALLUCINATIONS: NONE SUICIDALITY: NONE HOMICIDALITY: NONE DELUSIONS:NONE BEHAVIORS: COOPERATIVE INSIGHT: POOR JUDGMENT: POOR DIAGNOSIS SCHIZOPHRENIA MDD FAILURE TO THRIVE RECOMMENDATIONS Increase ZYPREXA ZYDIS 10 MG P.O. Q.H.S. Continue HALDOL 2.5MG PO BID-We can titrate up to see if patient has better results with Haldol versus Zyprexa D/C BUSPAR We will hold off on MARTINEZ patient is refusing at this time. Maybe consider some type of appetite stimulant. Total Time Spent 120 minutes REVIEW OF Clinical notes [X ] RN notes [X] PCT documentation [X] SW notes Labs [ X] Medications [X] Care trends/care activity [X] Vitals [X] DISCUSSION WITH proof machine operator [X] Staff SW Treatment Team Provider Sign Out Discharge PSYCHIATRY WILL CONTINUE TO FOLLOW DAILY CODING VISIT-PSYCHIATRY Date of Service: Jan 27, 2025 Billing Provider: KIMBERLY RIVER APRN Psych Common Visit Codes: CONSULT ONLY KIMBERLY RIVER APRN Jan 27, 2025 17:05
[2025-01-27] MEDS: OLANZapine 5mg rapidly disint. tablet PO ONE (17:19)
[2025-01-27 18:00] VITALS: BP 108/71; PULSE 72; RESP 16; TEMP 97.6; O2SAT 97
[2025-01-27 22:00] VITALS: BP 99/63; PULSE 61; RESP 16; TEMP 98.5; O2SAT 97
[2025-01-28 06:00] VITALS: BP 98/65; PULSE 55; RESP 14; TEMP 97.5; O2SAT 98
[2025-01-28 08:11] LABS: CREATININE 0.81 MG/DL (0.60-1.10); PHOSPHORUS 3.7 MG/DL (2.3-4.5); TOTAL CARBON DIOXIDE 32.2 MMOL/L (24-32); eCRCL 87 ML/MIN; eGFR > 90 ML/MIN
[2025-01-28 10:00] VITALS: BP 97/65; PULSE 61; RESP 15; TEMP 97.9; O2SAT 98
--- NOTE | 2025-01-28 12:56 | PROGRESS NOTE- Residence ---
Progress Note - Resident Providers to CC Resident Creating Document: JOE HOUSTON RES CC: KANU HAILE MD ~ Antibiotic Timeout Antibiotic Ordered?: No Subjective Patient seen today refusing foods and drinks, no new c/o Objective Vital Signs Date Time Temp Pulse Resp B/P (MAP) Pulse Ox O2 Delivery O2 Flow Rate FiO2 01/28/25 06:00 97.5 55 14 98/65 (76) 98 Room Air Result Diagram: 01/27/25 0446 01/28/25 0710 General: Adult male, appears sdehydrated, tongue is dry, with whitish layer, not in apparent distress Head: Normocephalic with an atraumatic Eyes: Pupils- 3mm, reacting to light, conjunctiva- anicteric Nose and throat: No polyps, septum- normal, no mucosal ulcers Neck: Supple, no lymphadenopathy, no carotid bruit Respiratory: No use of accessory muscles of respiration, Bilateral normal breath sounds heard. No wheeze, rhochi or creps Cardiac: S1-S2 heard, rythm regular, no gallop/murmur Abdomen: non distended, no tenderness, no organomegaly, bowel sounds- heard Extremities: no clubbing, no pedal edema, no deformities, peripheral pulses- 2+ Skin: warm and dry, no rash, no purpura Neuro: No focal deficit, gross cranial nerve exam- normal Assessment Assessment 44-year-old male, with schizophrenia, anxiety, gravely disabled, admitted for management of severe dehydration and hypernatremia Plan Plan Severe dehydration -patient is refusing to eat or drink, stating he is feeling a magic spell in his abdomen, and doesnt want to take anything -continue ivf as mentioned below Hypernatremia Hyperchloremia -likely 2/2 hypovolemic hyperatremia/dehydration -sodium 1444>>146>>151>>152. s. osm- 335. Sodium improved to 146 -dc D5W -start on 0.45NS@ 100cc/hr Starvation ketoacidosis Self induced starvation 2/2 schizophrenia -not taking food for the past one week -started on IV fluids as mentioned above ALISA -likely prerenal secondary to renal tubular stasis -baseline creatinine 0.8 -0.8>>1.04>>1.18 -started on IV fluids as mentioned above Hypokalemia- resolving -K-improved to 3.5 -refusing potassium pills -continue IV kcl per protocol Schizophrenia Anxiety disorder - as per [facility] recs- dc buspar, olanzapine 10 mg HS, haloperidol 2.5 mg b.i.d. Gravely disabled -1798, daily renewal Severe PEM -Patient cotinues to refuse foods, he is okay with having tablets that can dissolve in the mouth -ensure enlive tid -monitor for refeeding syndrome when he resumes diet Patient is put on 1798 and is medically cleared for [facility] to evaluate him 5149 Code Status: FULL CODE Line/tube: PIV DVT prophylaxis: Lovenox Nutrition: Regular diet PT: No Prognosis: Guarded Disposition: Continue care in ortho floor, transfer back to [facility] Date of Service: Jan 28, 2025 Billing Provider: KANU HAILE MD Common Visit Codes: [id number] INP/OBS CARE(HIGH) JOE HOUSTON, RES Jan 28, 2025 12:56 KANU HAILE MD Feb 13, 2025 13:38
[2025-01-28] MEDS ORDERED: magnesium Cl slow-release 64mg tablet PO PRN (13:15)
[2025-01-28] MEDS ORDERED: magnesium sulf-water 4G/100mL 100 ML IV PRN (13:15)
[2025-01-28] MEDS ORDERED: magnesium sulf-water 2g/50mL 50 ML IV PRN (13:15)
[2025-01-28] MEDS ORDERED: potassium Cl 20 mEq SR tablet PO PRN (13:15)
[2025-01-28 18:00] VITALS: BP 95/59; PULSE 63; RESP 17; TEMP 98.7; O2SAT 97
[2025-01-28] MEDS: OLANZapine 5mg rapidly disint. tablet PO SCH (19:30)
[2025-01-28 22:00] VITALS: BP 88/57; PULSE 60; RESP 16; TEMP 98.5; O2SAT 96
[2025-01-29] VITALS (7 sets, daily range): BP systolic 94–110; BP diastolic 55–68; PULSE 64–94; RESP 14–20; TEMP 97.9–98.2; O2SAT 96–98
[2025-01-29] MEDS: dextrose 50%-water 50ml dispensing syringe IV ONE (15:06)
[2025-01-29] MEDS ORDERED: DEXTROSE 15 GM of carb/4 tabs (each vial/BOTTLE has 4 tablets) PO PRN ×2 (15:20)
[2025-01-29] MEDS ORDERED: dextrose 50%-water 50ml dispensing syringe IV PRN (15:20)
[2025-01-29] MEDS ORDERED: glucagon, human recombinant 1mg kit SUBCUT PRN (15:20)
[2025-01-29 15:37] LABS: CREATININE 0.74 MG/DL (0.60-1.10); PHOSPHORUS 2.5 MG/DL (2.3-4.5); TOTAL CARBON DIOXIDE 23.9 MMOL/L (24-32); eCRCL 95 ML/MIN; eGFR > 90 ML/MIN
--- NOTE | 2025-01-29 16:29 | PROGRESS NOTE ---
Progress Note Dictate Providers to CC ~ Central Line/PICC still needed: N\\A Antibiotic Ordered?: No Objective Vitals Vital Signs Date Time Temp Pulse Resp B/P (MAP) Pulse Ox O2 Delivery O2 Flow Rate FiO2 01/29/25 10:00 98.2 70 20 96/58 (71) 97 Room Air Lab Results: 01/27/25 0446 01/29/25 1448 Problem\\Assessment\\Plan Problems/Diagnosis: (1) Schizophrenia (2) Failure to thrive (3) Gravely disabled (4) Major depression Psychiatrist's Progress Note Date of Service: Jan 29, 2025 Notes PATIENT NAME: ASHVIN YUEN DATE OF EVALUATION: JANUARY 29, 2025 CONSULTING PROVIDER: BIANCA GONZALES PA-C CONSULTING SERVICE: PSYCHIATRY MANAGING MEDICAL PROVIDER: KANU HAILE MD REASON FOR CONSULTATION: MEDICATION MANAGEMENT ASSESSMENT: The patient was interviewed in designated room with associate CLAIRE Palma. We did not use an infant toddler lead teacher. He was previously seen on the [facility] floor and did understand and speak fairly good chinese. He says he 'does not feel well.' He admits to not eating or drinking. He says 'I feel like I'm going to vomit.' When asked directly if his stomach issues were due to witchcraft or anabaptism... patient states 'might be'. He admits that he has been feeling like something bad is going to happen to him. He admits to feeling 'little scared all the time'. He denies feeling depressed or sad, but has no interest in doing anything for himself. He states he is really fatigued. When asked if he wants to live, he states 'yes.' Then it was explained he must eat and drink in order to live. He just states. 'I know, but I can't. I feel like I'm going to vomit.' He denies AH/VH. He is sleeping most of the time d/t fatigue. Mental Status APPEARANCE: TALL, THIN MANDARIN MALE. DISHEVELED SPEECH: SLOW, SOFT EYE CONTACT: INTERMITTENT-- CLOSES HIS EYES A LOT MOTOR ACTIVITY: PSYCHOMOTOR RETARDATION AFFECT: FLAT MOOD: "I FEEL LIKE I'M GOING TO VOMIT' ORIENTATION IMPAIRMENT: NONE MEMORY IMPAIRMENT: NONE ATTENTION: FULL HALLUCINATIONS: DENIES SUICIDALITY: DENIES STATES HE WANTS TO LIVE HOMICIDALITY: DENIES DELUSIONS: SEEMS TO BE HAVING SOME INTRUSIVE MAGICAL THINKING VS PARANOID DELUSIONS. BEHAVIORS: COOPERATIVE INSIGHT: POOR JUDGMENT: POOR Treatment RECOMMENDATIONS-- He has intrusive magical thinking. Could be an OCD Component? Should speak with about this? Experiencing some vague paranoid delusions. Haldol is a good choice of an antipsychotic as it also has antinausea benefits. I will add Remeron to help stimulate appetite and as a mild antidepressant. He may require addition of Zoloft as well if the Remeron alone is not sufficent. He does not express 'depression or sadness' per se, but is experiencing a loss of desire and interest to do anything to care for himself this along with other symptoms do meet criteria for MDD. We will hold off on MARTINEZ at this time. This patient is refusing this, but has been taking PO medications. He can not be forced to take an MARTINEZ against his will due to it being of psychiatric in nature rather than medical in nature. I agree that switching to a MARTINEZ prior to d/c would be good. Check an EKG in another day or so d/t Haldol increase and Zofran QTc prolongation coupled with electrolyte changes. ADD Remeron 15mg hs. Continue ZYPREXA ZYDIS 10 MG P.O. Q.H.S. INCREASE HALDOL 5 MG PO BID- We can titrate up to see if patient has better results with Haldol versus Zyprexa-- and if responding to the Haldol we will decrease and d/c Zyprexa. Total Time Spent 120 minutes REVIEW OF Clinical notes [X ] RN notes [X] PCT documentation [X] SW notes Labs [ X] Medications [X] Care trends/care activity [X] Vitals [X] DISCUSSION WITH improvement manager [X] Staff SW Treatment Team Provider Sign Out Discharge PSYCHIATRY WILL CONTINUE TO FOLLOW DAILY CODING VISIT-PSYCHIATRY Date of Service: Jan 29, 2025 Billing Provider: BIANCA GONZALES Psych Common Visit Codes: CONSULT ONLY Problem Qualifiers (1) Schizophrenia: Qualified Codes: F20.9 - Schizophrenia, unspecified (2) Failure to thrive: Qualified Codes: R62.7 - Adult failure to thrive (3) Major depression: Qualified Codes: F32.9 - Major depressive disorder, single episode, unspecified BIANCA GONZALES Jan 29, 2025 16:28
--- NOTE | 2025-01-29 17:57 | PROGRESS NOTE- Residence ---
Progress Note - Resident Providers to CC Resident Creating Document: KARY BOWENS, MELISSA CC: KANU HAILE MD ~ Antibiotic Timeout Antibiotic Ordered?: No Subjective Patient seen today refusing foods and drinks, he did not want blood draws in the morning. Patient had a fall today while he was going to use the restroom, sitter was present beside him. Patient fell dizzy but did not lose consciousness ,no hit on head. Blood pressure was 99/58mmhg. Patient has no confusion or headaches. Did not require CT head. Objective Vital Signs Date Time Temp Pulse Resp B/P (MAP) Pulse Ox O2 Delivery O2 Flow Rate FiO2 01/29/25 10:00 98.2 70 20 96/58 (71) 97 Room Air General: Adult male, appears dehydrated, tongue is dry, with whitish layer, not in apparent distress Head: Normocephalic with an atraumatic Eyes: Pupils- 3mm, reacting to light, conjunctiva- anicteric Nose and throat: No polyps, septum- normal, no mucosal ulcers Neck: Supple, no lymphadenopathy, no carotid bruit Respiratory: No use of accessory muscles of respiration, Bilateral normal breath sounds heard. No wheeze, rhochi or creps Cardiac: S1-S2 heard, rythm regular, no gallop/murmur Abdomen: non distended, no tenderness, no organomegaly, bowel sounds- heard Extremities: no clubbing, no pedal edema, no deformities, peripheral pulses- 2+ Skin: warm and dry, no rash, no purpura Neuro: No focal deficit, gross cranial nerve exam- normal Result Diagram: 01/27/25 0446 01/29/25 1448 Assessment Assessment 44-year-old male, with schizophrenia, anxiety, gravely disabled, admitted for management of severe dehydration and hypernatremia Plan Plan Severe dehydration -patient is refusing to eat or drink, stating he is feeling a magic spell in his abdomen, and doesnt want to take anything -continue ivf as mentioned below Hypernatremia, resolved Hyperchloremia -likely 2/2 hypovolemic hyperatremia/dehydration -sodium 144>>146>>151>>152. s. osm- 335. Sodium improved to 146 -dc D5W -start on 0.45NS@ 100cc/hr Hypoglycemia Patient's blood glucose today was 60, initiated hypoglycemic protocol Starvation ketoacidosis Self induced starvation 2/2 schizophrenia -not taking food for the past one week -started on IV fluids as mentioned above ALISA -likely prerenal secondary to renal tubular stasis -baseline creatinine 0.8 -0.8>>1.04>>1.18 -started on IV fluids as mentioned above Hypokalemia- resolving -K-improved to 3.5 -refusing potassium pills -continue IV kcl per protocol Schizophrenia Anxiety disorder Psy recs today- Initiated Remeron 15 mg hs,Continue ZYPREXA ZYDIS 10 MG P.O. Q.H.S. Increased HALDOL 5 MG PO BID, titrate up to see if patient has better results with Haldol versus Zyprexa-- and if responding to the Haldol decrease and d/c Zyprexa. Gravely disabled -1798, daily renewal Severe PEM -Patient cotinues to refuse foods, he is okay with having tablets that can dissolve in the mouth -ensure enlive tid -monitor for refeeding syndrome when he resumes diet Patient is put on 1798 and is medically cleared for [facility] to evaluate him 5150 hold Code Status: FULL CODE Line/tube: PIV DVT prophylaxis: Lovenox Nutrition: Regular diet PT: No Prognosis: Guarded Disposition: Continue care in ortho floor, check an ECG tomorrow for QT prolongation due to Haldol increase and Zofran, might consider starting him on TPN Kary Bowens MD Internal medicine resident PGY-1 Date of Service: Jan 29, 2025 Billing Provider: KANU HAILE MD Common Visit Codes: [id number] INP/OBS CARE(HIGH) KARY BOWENS, RES Jan 29, 2025 17:57 KANU HAILE MD Feb 13, 2025 13:38
[2025-01-29] MEDS: dextrose 50%-water 50ml dispensing syringe IV PRN (19:56)
[2025-01-30 06:00] VITALS: BP 94/59; PULSE 71; RESP 15; TEMP 97.5; O2SAT 98
[2025-01-30 08:00] VITALS: BP_SYST 92; BP_SYST 99; BP_DIAS 61; BP_DIAS 62; PULSE 66; PULSE 67; RESP 18; O2SAT 96
[2025-01-30 10:00] VITALS: BP 99/62; PULSE 67; RESP 15; TEMP 98.4; O2SAT 98
--- NOTE | 2025-01-30 11:56 | PROGRESS NOTE ---
Progress Note Dictate Providers to CC ~ Antibiotic Ordered?: No Objective Vitals Vital Signs Date Time Temp Pulse Resp B/P (MAP) Pulse Ox O2 Delivery O2 Flow Rate FiO2 01/30/25 08:00 67 99/62 (74) 66 92/61 (71) 01/30/25 08:00 18 96 Room Air 01/30/25 06:00 97.5 Lab Results: 01/27/25 0446 01/29/25 1448 Psychiatrist's Progress Note Date of Service: Jan 30, 2025 Notes PATIENT NAME: ASHVIN YUEN DATE OF EVALUATION: JANUARY 30, 2025 CONSULTING PROVIDER: BERNADETTE BARBOUR CONSULTING SERVICE: PSYCHIATRY MANAGING MEDICAL PROVIDER: KANU HAILE MD REASON FOR CONSULTATION: MEDICATION MANAGEMENT ASSESSMENT: Patient was seen via Telehealth, he was lying on the hospital bed, covered up to his chin with a blanket. He was able to voice his concerns without any difficulties, no directory clerk needed. Patient states he will not eat any solid food, " I will continue to take fluids through IV" vomited yesterday and refused to even take small bites of finger foods throughout the day, states his issues are spiritual, he believes that something/someone did this to him, he denies SI/HI/AVH at this time, he does not want to take medication. Mental Status SPEECH: low hesitant EYE CONTACT: Appropriate BEHAVIOR: Cooperative AFFECT: flat MOOD: depressed ORIENTATION IMPAIRMENT: None MEMORY IMPAIRMENT: None ATTENTION: Full HALLUCINATIONS: Denies SUICIDALITY: Denies HOMICIDALITY: Denies DELUSIONS: Spiritual, fixed INSIGHT: Poor JUDGMENT: Poor Treatment RECOMMENDATIONS-- Patient presents with depression and fixed spiritual delusions/believes that he is not supposed eat, last night refused his medication, will not do any medication changes or adjustments today, patient has to consistently take his medication daily for any significant improvement in his symptoms to be seen. He wants 'IV foods" may benefit with TPN? He should be encouraged to take his medications. should also be involved in his care due to cultural believes. If pt continues to refuse psychiatric medication for a prolonged period of time, Reise can be initiated (to give psychiatric medications only), but patient first will need to be medically stable and transferred to the psychiatric unit. Continue: Remeron 15 mg HS Zyprexa 10 mh hs Haldol 5 mg bid Total Time Spent 60 minutes REVIEW OF Clinical notes [X ] RN notes [X] PCT documentation [X] SW notes Labs [ X] Medications [X] Care trends/care activity [X] Vitals [X] DISCUSSION WITH program specialist [X] Staff SW Treatment Team Provider Sign Out Discharge PSYCHIATRY WILL CONTINUE TO FOLLOW DAILY CODING VISIT-PSYCHIATRY Date of Service: Jan 30, 2025 Billing Provider: ELIEZER CRAFT DNP Psych Common Visit Codes: [id number] INP/OBS CARE(High) ELIEZER CRAFT DNP Jan 30, 2025 11:56
[2025-01-30] MEDS ORDERED: FAT EMUL/SOY/MCT/OLIV/FISH OIL (SMOF) 100 ML IV SCH (17:00)
--- NOTE | 2025-01-30 17:44 | PROGRESS NOTE- Residence ---
Progress Note - Resident Providers to CC Resident Creating Document: JOE HOUSTON RES CC: KANU HAILE MD ~ Antibiotic Timeout Antibiotic Ordered?: No Subjective Patient is seen this morning. We conversed with him this morning in Rwandan, speaking good Rwandan the help of an medical record specialist. Patient stated that he would like to go home and is asking for to be discharged home. He said he will take full responsibility of his condition and would like to sign papers and go home. He still continues to refuse foods or drinks. Discussed with patient regarding the complications of starvation, but patient states that he still does not want to eat. He denies any nausea or vomiting or abdominal pain. Denies dizziness. patient refused EKG and labs this morning Objective Vital Signs Date Time Temp Pulse Resp B/P (MAP) Pulse Ox O2 Delivery O2 Flow Rate FiO2 01/30/25 10:00 98.4 67 15 99/62 (74) 98 Room Air Result Diagram: 01/27/25 0446 01/29/25 1448 General: Adult male, appears dehydrated, tongue is dry, with whitish layer, not in apparent distress Head: Normocephalic with an atraumatic Eyes: Pupils- 3mm, reacting to light, conjunctiva- anicteric Nose and throat: No polyps, septum- normal, no mucosal ulcers Neck: Supple, no lymphadenopathy, no carotid bruit Respiratory: No use of accessory muscles of respiration, Bilateral normal breath sounds heard. No wheeze, rhochi or creps Cardiac: S1-S2 heard, rythm regular, no gallop/murmur Abdomen: non distended, no tenderness, no organomegaly, bowel sounds- heard Extremities: no clubbing, no pedal edema, no deformities, peripheral pulses- 2+ Skin: warm and dry, no rash, no purpura Neuro: No focal deficit, gross cranial nerve exam- normal Assessment Assessment 44-year-old male, with schizophrenia, anxiety, gravely disabled, admitted for management of severe dehydration and hypernatremia Plan Plan Severe dehydration -patient is refusing to eat or drink, stating he is feeling a magic spell in his abdomen, and doesnt want to take anything -changed to d5w @ 100 cc/hr Hypernatremia, resolved Hyperchloremia -likely 2/2 hypovolemic hyperatremia/dehydration -sodium 144>>146>>151>>152. s. osm- 335. -continue ivf as mentioned above Hypoglycemia -resolved -started on ppn from today Starvation ketoacidosis Self induced starvation 2/2 schizophrenia -not taking food for the past one week -started on IV fluids as mentioned above ALISA -likely prerenal secondary to renal tubular stasis -baseline creatinine 0.8 -0.8>>1.04>>1.18 -started on IV fluids as mentioned above Hypokalemia- resolved -K-improved to 3.6 Schizophrenia Anxiety disorder as per Psy recs - Initiated Remeron 15 mg hs,Continue ZYPREXA ZYDIS 10 MG P.O. Q.H.S. Increased HALDOL 5 MG PO BID, titrate up to see if patient has better results with Haldol versus Zyprexa-- and if responding to the Haldol decrease and d/c Zyprexa. -[facility] team following the patient daily Gravely disabled -1798 hold, daily renewal Severe PEM -Patient cotinues to refuse foods, he is okay with having tablets that can dissolve in the mouth -ensure enlive tid -started on PPN on 01/30, monitor blood glucose and TGs -monitor for refeeding syndrome when he resumes diet Code Status: FULL CODE Line/tube: PIV DVT prophylaxis: Lovenox Nutrition: Regular diet PT: No Prognosis: Guarded Disposition: Continue care in ortho floor, started on PPN Date of Service: Jan 30, 2025 Billing Provider: KANU HAILE MD Common Visit Codes: [id number] INP/OBS CARE(HIGH) JOE HOUSTON, RES Jan 30, 2025 17:44 KANU HAILE MD Feb 13, 2025 13:38
[2025-01-30 18:00] VITALS: BP 102/47; PULSE 66; RESP 15; TEMP 98.3; O2SAT 98
[2025-01-30 20:00] VITALS: BP_SYST 101; BP_SYST 95; BP_DIAS 58; BP_DIAS 61; PULSE 58; PULSE 62; RESP 15; O2SAT 98
[2025-01-30] MEDS: FAT EMUL/SOY/MCT/OLIV/FISH OIL (SMOF) 100 ML IV SCH (20:13)
[2025-01-30 22:00] VITALS: BP 99/58; PULSE 58; RESP 16; TEMP 97.9; O2SAT 97
[2025-01-31 06:00] VITALS: BP 101/69; PULSE 59; RESP 16; TEMP 98.3; O2SAT 98
[2025-01-31] MEDS: MVI, adult No.4 with vit. K 10 ML in dextrose 5% water 500ml 500 ML IV SCH (07:29)
[2025-01-31 08:00] VITALS: BP_SYST 100; BP_SYST 104; BP_SYST 105; BP_DIAS 55; BP_DIAS 59; BP_DIAS 65; PULSE 68; PULSE 72; PULSE 89
[2025-01-31 09:23] LABS: CREATININE 0.71 MG/DL (0.60-1.10); PHOSPHORUS 2.0 MG/DL (2.3-4.5); TOTAL CARBON DIOXIDE 29.5 MMOL/L (24-32); eCRCL 99 ML/MIN; eGFR > 90 ML/MIN
[2025-01-31 10:00] VITALS: BP 104/65; PULSE 77; RESP 12; TEMP 98.3; O2SAT 96
[2025-01-31] MEDS: potassium Cl 40MEQ/1/2NS 520ml 520 ML IV PRN (10:37)
[2025-01-31] MEDS: potassium Cl 20 mEq SR tablet PO PRN (11:58)
--- NOTE | 2025-01-31 13:44 | PROGRESS NOTE- Residence ---
Progress Note - Resident Providers to CC Resident Creating Document: JOE HOUSTON RES CC: KANU HAILE MD ~ Central Line/PICC still needed: N\A Antibiotic Timeout Antibiotic Ordered?: No Subjective Patient is seen this morning. Started PPN yesterday. Patient is refusing Accu- Cheks, yeast still not eating or drinking. He stated he is not feeling hungry or thirsty. Asking when he could go home. He is conversing in fluent Persian without the help of any scout Discussed with the patient regarding the complications on starvation, and and to try what as he is not having any nausea or abdominal pain. Patient said thank you and is still refusing Objective Vital Signs Date Time Temp Pulse Resp B/P (MAP) Pulse Ox O2 Delivery O2 Flow Rate FiO2 01/31/25 10:00 98.3 77 12 104/65 (78) 96 Room Air Result Diagram: 01/27/25 0446 01/31/25 0802 General: Adult male, severely malnourished showed, with temporal hollowing appears dehydrated, not in apparent distress Head: Normocephalic with an atraumatic Eyes: Pupils- 3mm, reacting to light, conjunctiva- anicteric Nose and throat: No polyps, septum- normal, no mucosal ulcers Neck: Supple, no lymphadenopathy, no carotid bruit Respiratory: No use of accessory muscles of respiration, Bilateral normal breath sounds heard. No wheeze, rhochi or creps Cardiac: S1-S2 heard, rythm regular, no gallop/murmur Abdomen: non distended, no tenderness, no organomegaly, bowel sounds- heard Extremities: no clubbing, no pedal edema, no deformities, peripheral pulses- 2+ Skin: warm and dry, no rash, no purpura Neuro: No focal deficit, gross cranial nerve exam- normal Assessment Assessment 44-year-old male, with schizophrenia, anxiety, gravely disabled, admitted for management of severe dehydration and hypernatremia Plan Plan Severe dehydration -patient is refusing to eat or drink, stating he is feeling a magic spell in his abdomen, and doesnt want to take anything -started on PPN from 01/30- on Clinimix E with a goal rate of 100 mL per hr Hypernatremia, resolved Hyperchloremia- resolved -likely 2/2 hypovolemic hyperatremia/dehydration from starvation -monitor BMP daily Hypoglycemia -resolved -started on ppn from today Hyperglycemia -suspect likely secondary to PPN -DC D5 W, as patient is also refusing Accu-Cheks Starvation ketoacidosis Self induced starvation 2/2 schizophrenia -not taking food for the past one week -started on IV fluids as mentioned above ALISA-resolved -likely prerenal secondary to renal tubular stasis -cr- back to baseline -monitor BMP Hypokalemia -K-3.0 -patient refused IV potassium and p.o. pills this morning -educated the patient regarding the importance of taking potassium. Schizophrenia Anxiety disorder -continue haloperidol 5 mg b.i.d., Zyprexa 10 mg HS, and Remeron 15 mg h.s. -[facility] team following the patient daily Gravely disabled -1798 hold, daily renewal Severe PEM secondary to starvation -Patient cotinues to refuse foods, he is okay with having tablets that can dissolve in the mouth -ensure enlive tid -started on PPN on 01/30, monitor blood glucose and TGs -monitor for refeeding syndrome when he resumes diet Hypophosphatemia -IV potassium phosphate 15 millimoles one dose today Code Status: FULL CODE Line/tube: PIV DVT prophylaxis: Lovenox Nutrition: Regular diet PT: No Prognosis: Guarded Disposition: Continue care in ortho floor, will transfer to [facility] once patient is medically cleared Date of Service: Jan 31, 2025 Billing Provider: KANU HAILE MD Common Visit Codes: [id number] INP/OBS CARE(HIGH) JOE HOUSTON, RES Jan 31, 2025 13:44 KANU HAILE MD Feb 13, 2025 13:39
[2025-01-31] MEDS: potassium phosphate inj 15 MMOL in normal saline 250ml IV soln 250 ML IV ONE (15:36)
[2025-01-31 18:00] VITALS: BP 100/65; PULSE 74; RESP 12; TEMP 98.3; O2SAT 98
[2025-01-31 20:00] VITALS: BP_SYST 100; BP_SYST 101; BP_SYST 97; BP_DIAS 61; BP_DIAS 62; BP_DIAS 63; PULSE 57; PULSE 69; PULSE 72
--- NOTE | 2025-01-31 21:32 | PROGRESS NOTE ---
Progress Note Dictate Providers to CC ~ Antibiotic Ordered?: No Objective Vitals Vital Signs Date Time Temp Pulse Resp B/P (MAP) Pulse Ox O2 Delivery O2 Flow Rate FiO2 01/31/25 18:00 98.3 74 12 100/65 (77) 98 Room Air Lab Results: 01/27/25 0446 01/31/25 0802 Psychiatrist's Progress Note Date of Service: Jan 31, 2025 Notes PATIENT NAME: ASHIVN YUEN DATE OF EVALUATION: JANUARY 31, 2025 CONSULTING PROVIDER: BERNADETTE BARBOUR CONSULTING SERVICE: PSYCHIATRY MANAGING MEDICAL PROVIDER: KANU HAILE MD REASON FOR CONSULTATION: MEDICATION MANAGEMENT ASSESSMENT: Patient was seen via Telehealth, sleeping, refused to engage " I will not eat, just go" pt is alerts,speaks in calm voice, fixated in his delusion of spirits not wanting him to eat, states he will take medication but will not eat, he is tired today and just want to be left alone. Mental Status SPEECH: low hesitant EYE CONTACT: Appropriate BEHAVIOR: Cooperative AFFECT: flat MOOD: depressed ORIENTATION IMPAIRMENT: None MEMORY IMPAIRMENT: None ATTENTION: Full HALLUCINATIONS: Denies SUICIDALITY: Denies HOMICIDALITY: Denies DELUSIONS: Spiritual, fixed INSIGHT: Poor JUDGMENT: Poor Treatment RECOMMENDATIONS-- Patient has agreed to take meds, staff to encourage him to comply with treatment, it will be hard to completely eliminate his fixed delusions but maybe with medication we may be able to reduce the convictions so that he can start eating on his own Continue: Remeron 15 mg HS Zyprexa 10 mg hs Haldol 5 mg bid Total Time Spent 60 minutes REVIEW OF Clinical notes [X ] RN notes [X] PCT documentation [X] SW notes Labs [ X] Medications [X] Care trends/care activity [X] Vitals [X] DISCUSSION WITH certified medical biller [X] Staff SW Treatment Team Provider Sign Out Discharge PSYCHIATRY WILL CONTINUE TO FOLLOW DAILY CODING VISIT-PSYCHIATRY Date of Service: Jan 31, 2025 Billing Provider: ELIEZER CRAFT DNP Psych Common Visit Codes: [id number] INP/OBS CARE(Mod) ELIEZER CRAFT DNP Jan 31, 2025 21:32
[2025-01-31 22:00] VITALS: BP 105/63; PULSE 61; RESP 16; TEMP 97.7; O2SAT 98
[2025-02-01] VITALS (7 sets, daily range): BP systolic 91–106; BP diastolic 54–67; PULSE 57–85; RESP 15–16; TEMP 97.7–98.1; O2SAT 97–98
--- NOTE | 2025-02-01 11:19 | PROGRESS NOTE- Residence ---
Progress Note - Resident Providers to CC Resident Creating Document: JOE HOUSTON RES CC: KANU HAILE MD ~ Antibiotic Timeout Antibiotic Ordered?: No Subjective Patient is seen this morning. Stated he is feeling tired. Continues refused eating or drinking. This morning he refused labs also. Informed to the patient that his potassium is low and that it is important to recheck the potassium. We discussed the complications of low potassium like muscle weakness, sudden cardiac arrest, and patient said thank you, but continues to refuse lab draw today. Stated he will get the lab draw tomorrow. Objective Vital Signs Date Time Temp Pulse Resp B/P (MAP) Pulse Ox O2 Delivery O2 Flow Rate FiO2 02/01/25 10:03 97.7 65 16 106/67 (80) 97 Room Air Result Diagram: 01/31/25 0802 General: Adult male, severely malnourished showed, with temporal hollowing appears dehydrated, not in apparent distress Head: Normocephalic with an atraumatic Eyes: Pupils- 3mm, reacting to light, conjunctiva- anicteric Nose and throat: No polyps, septum- normal, no mucosal ulcers Neck: Supple, no lymphadenopathy, no carotid bruit Respiratory: No use of accessory muscles of respiration, Bilateral normal breath sounds heard. No wheeze, rhochi or creps Cardiac: S1-S2 heard, rythm regular, no gallop/murmur Abdomen: non distended, no tenderness, no organomegaly, bowel sounds- heard Extremities: no clubbing, no pedal edema, no deformities, peripheral pulses- 2+ Skin: warm and dry, no rash, no purpura Neuro: No focal deficit, gross cranial nerve exam- normal Assessment Assessment 44-year-old male, with schizophrenia, anxiety, gravely disabled, admitted for management of severe dehydration and hypernatremia Plan Plan Severe dehydration -patient is refusing to eat or drink, stating he is feeling a magic spell in his abdomen, and doesnt want to take anything -started on PPN from 01/30- on Clinimix E with a goal rate of 100 mL per hr Hypernatremia, resolved Hyperchloremia- resolved -likely 2/2 hypovolemic hyperatremia/dehydration from starvation -monitor BMP daily- refused labs today Hypoglycemia -resolved -started on ppn from today Hyperglycemia -suspect likely secondary to PPN -DC D5 W, as patient is also refusing Accu-Cheks Starvation ketoacidosis Self induced starvation 2/2 schizophrenia -not taking food for the past one week -started on IV fluids as mentioned above ALISA-resolved -likely prerenal secondary to renal tubular stasis -cr- back to baseline -monitor BMP Hypokalemia -2/2 starvation -K-3.0 om 02/01, he refused lab draw today -continue IV potassium for now -educated the patient regarding the importance of taking potassium. Schizophrenia Anxiety disorder -continue haloperidol 5 mg b.i.d., Zyprexa 10 mg HS, and Remeron 15 mg h.s. -[facility] team following the patient daily Gravely disabled -1798 hold, daily renewal Severe PEM secondary to starvation Severe starvation -Patient cotinues to refuse foods, he is okay with having tablets that can dissolve in the mouth -ensure enlive tid -started on PPN on 01/30, monitor blood glucose and TGs -monitor for refeeding syndrome when he resumes diet Hypophosphatemia -IV potassium phosphate 15 millimoles one dose given on 02/01 Code Status: FULL CODE Line/tube: PIV DVT prophylaxis: Lovenox- Patient is refusing, start on SCDs Nutrition: Regular diet PT: No Prognosis: Guarded Disposition: Continue care in ortho floor, will transfer to [facility] once patient is medically cleared Date of Service: Feb 01, 2025 Billing Provider: KANU HAILE MD Common Visit Codes: [id number] INP/OBS CARE(HIGH) JOE HOUSTON, RES Feb 01, 2025 11:19 KANU HAILE MD Feb 13, 2025 13:39
[2025-02-01 14:19] LABS: CREATININE 0.72 MG/DL (0.60-1.10); PHOSPHORUS 2.6 MG/DL (2.3-4.5); TOTAL CARBON DIOXIDE 29.0 MMOL/L (24-32); eCRCL 101 ML/MIN; eGFR > 90 ML/MIN
[2025-02-01] MEDS: Potassium Cl 40 MEQ in sodium chloride 0.45% 500 ML IV ONE (14:54)
--- NOTE | 2025-02-01 19:01 | PROGRESS NOTE ---
Progress Note Dictate Providers to CC ~ Antibiotic Ordered?: No Objective Vitals Vital Signs Date Time Temp Pulse Resp B/P (MAP) Pulse Ox O2 Delivery O2 Flow Rate FiO2 02/01/25 13:00 64 95/60 (72) 73 93/64 (74) 85 106/62 (77) 02/01/25 10:03 97.7 16 97 Room Air Lab Results: 02/01/25 1354 Psychiatrist's Progress Note Date of Service: Feb 01, 2025 Notes PATIENT NAME: ASHVIN YUEN DATE OF EVALUATION: FEBRUARY 01, 2025 CONSULTING PROVIDER: BERNADETTE BARBOUR CONSULTING SERVICE: PSYCHIATRY MANAGING MEDICAL PROVIDER: KANU HAILE MD REASON FOR CONSULTATION: MEDICATION MANAGEMENT ASSESSMENT: Patient was seen via Telehealth, laying on the bed, did not want to engage much today, states he took his medication but still feel like something bad will happen to him, still hesitant to eat " I can't do it" does not want to talk Mental Status SPEECH: low hesitant EYE CONTACT: Appropriate BEHAVIOR: Cooperative AFFECT: flat MOOD: depressed ORIENTATION IMPAIRMENT: None MEMORY IMPAIRMENT: None ATTENTION: Full HALLUCINATIONS: Denies SUICIDALITY: Denies HOMICIDALITY: Denies DELUSIONS: Spiritual, fixed INSIGHT: Poor JUDGMENT: Poor Treatment RECOMMENDATIONS-- parent did not want to enage today,continue encouraging patient to take his medication, encourage ADL's Continue: Remeron 15 mg HS Zyprexa 10 mg hs Haldol 5 mg bid Total Time Spent 60 minutes REVIEW OF Clinical notes [X ] RN notes [X] PCT documentation [X] SW notes Labs [ X] Medications [X] Care trends/care activity [X] Vitals [X] DISCUSSION WITH environmental resource specialist [X] Staff SW Treatment Team Provider Sign Out Discharge PSYCHIATRY WILL CONTINUE TO FOLLOW DAILY CODING VISIT-PSYCHIATRY Date of Service: Feb 01, 2025 Billing Provider: ELIEZER CRAFT DNP Psych Common Visit Codes: CONSULT ONLY ELIEZER CRAFT DNP Feb 01, 2025 19:01
[2025-02-02 06:00] VITALS: BP 98/66; PULSE 63; RESP 14; TEMP 96.6; O2SAT 99
[2025-02-02 07:24] LABS: CREATININE 0.72 MG/DL (0.60-1.10); PHOSPHORUS 3.2 MG/DL (2.3-4.5); TOTAL CARBON DIOXIDE 27.1 MMOL/L (24-32); eCRCL 101 ML/MIN; eGFR > 90 ML/MIN
[2025-02-02 08:00] VITALS: BP_SYST 101; BP_SYST 108; BP_DIAS 58; BP_DIAS 61; BP_DIAS 71; PULSE 66; PULSE 74; PULSE 89
[2025-02-02 10:00] VITALS: BP 92/58; PULSE 66; RESP 14; TEMP 97.8; O2SAT 98
--- NOTE | 2025-02-02 11:03 | PROGRESS NOTE- Residence ---
Progress Note - Resident Providers to CC Resident Creating Document: JOE HOUSTON RES CC: KANU HAILE MD ~ Central Line/PICC still needed: N\A Antibiotic Timeout Antibiotic Ordered?: No Subjective Patient is seen this morning, and his is also at bedside. He also has a sitter. He stated he is feeling tired, doesnt want to eat or drink. stated patient is having this disorder for the past two years and he had episodes of prolonged fasting previously too RD informed the patient's last bowel movement was 01/23 Objective Vital Signs Date Time Temp Pulse Resp B/P (MAP) Pulse Ox O2 Delivery O2 Flow Rate FiO2 02/02/25 10:00 97.8 66 14 92/58 (69) 98 Room Air Result Diagram: 02/02/25 0515 General: Adult male, severely malnourished with temporal hollowing appears dehydrated, not in apparent distress Head: Normocephalic with an atraumatic Eyes: Pupils- 3mm, reacting to light, conjunctiva- anicteric Nose and throat: No polyps, septum- normal, no mucosal ulcers Neck: Supple, no lymphadenopathy, no carotid bruit Respiratory: No use of accessory muscles of respiration, Bilateral normal breath sounds heard. No wheeze, rhochi or creps Cardiac: S1-S2 heard, rythm regular, no gallop/murmur Abdomen: non distended, no tenderness, no organomegaly, bowel sounds- heard Extremities: no clubbing, no pedal edema, no deformities, peripheral pulses- 2+ Skin: warm and dry, no rash, no purpura Neuro: No focal deficit, gross cranial nerve exam- normal Assessment Assessment 44-year-old male, with schizophrenia, anxiety, gravely disabled, admitted for management of severe dehydration and hypernatremia Plan Plan Severe dehydration -persistent as patient is still refusing eat or drink -started on PPN from 01/30- on Clinimix E with a goal rate of 100 mL per hr Hypernatremia, resolved Hyperchloremia- resolved -likely 2/2 hypovolemic hyperatremia/dehydration from starvation -monitor BMP daily Hypoglycemia -resolved -started on ppn from 01/30 Hyperglycemia -suspect likely secondary to PPN -patient refusing accuchecks Starvation ketoacidosis Self induced starvation 2/2 schizophrenia -not taking food for the past one week -currently on PPN ALISA-resolved -likely prerenal secondary to renal tubular stasis -cr- back to baseline -monitor BMP Hypokalemia- resolved -2/2 starvation -monitor BMP daily Schizophrenia Anxiety disorder -continue haloperidol 5 mg b.i.d., Zyprexa 10 mg HS, and Remeron 15 mg h.s. -[facility] team following the patient daily Gravely disabled -1798 hold, daily renewal Severe PEM secondary to starvation Severe starvation -Patient cotinues to refuse foods, he is okay with having tablets that can dissolve in the mouth -ensure enlive tid -started on PPN on 01/30, monitor blood glucose and TGs -monitor for refeeding syndrome when he resumes diet Hypophosphatemia- resolved Constipation -started on Colace 100 mg p.o. daily and p.r.n. milk of mag PIV is not working, and will do a midline line today Code Status: FULL CODE Line/tube: PIV DVT prophylaxis: Lovenox- Patient is refusing, start on SCDs Nutrition: Regular diet PT: No Prognosis: Guarded Disposition: Continue care in ortho floor, will transfer to [facility] once patient is medically cleared Date of Service: Feb 02, 2025 Billing Provider: KANU HAILE MD Common Visit Codes: [id number] INP/OBS CARE(HIGH) JOE HOUSTON, RES Feb 02, 2025 11:03 KANU HAILE MD Feb 13, 2025 13:39
[2025-02-02] MEDS ORDERED: magnesium hydroxide 30ml (MOM) UD suspension PO PRN (12:30)
[2025-02-02 18:30] VITALS: BP 91/55; PULSE 60; RESP 15; TEMP 98.2; O2SAT 98
[2025-02-02] MEDS: docusate sodium 100mg/10ml UD cup PO SCH (19:54)
[2025-02-02 20:00] VITALS: BP_SYST 101; BP_SYST 93; BP_SYST 94; BP_DIAS 61; BP_DIAS 62; BP_DIAS 64; PULSE 57; PULSE 70; PULSE 79
[2025-02-02 22:00] VITALS: BP 93/61; PULSE 58; RESP 18; TEMP 98; O2SAT 97
--- NOTE | 2025-02-03 00:23 | PROGRESS NOTE ---
Progress Note Dictate Providers to CC ~ Antibiotic Ordered?: No Objective Vitals Vital Signs Date Time Temp Pulse Resp B/P (MAP) Pulse Ox O2 Delivery O2 Flow Rate FiO2 02/02/25 22:00 98.0 58 18 93/61 (72) 97 Room Air Lab Results: 02/02/25 0515 Psychiatrist's Progress Note Date of Service: Feb 02, 2025 Notes PATIENT NAME: ASHVIN YUEN DATE OF EVALUATION: FEBRUARY 02, 2025 CONSULTING PROVIDER: BERNADETTE BARBOUR CONSULTING SERVICE: PSYCHIATRY MANAGING MEDICAL PROVIDER: KANU HAILE MD REASON FOR CONSULTATION: MEDICATION MANAGEMENT ASSESSMENT: Patient was seen via Telehealth, seems more alert, engaging more freely, states he is taking his medication, " I feel better" even though not eating but noticed that his mouth smells like vomit. He has not brushed his teeth in days, discussed hygiene, given homework to brush his teeth in the morning and at bedtime daily to which he agreed Mental Status SPEECH: low hesitant EYE CONTACT: Appropriate BEHAVIOR: Cooperative AFFECT: flat MOOD: depressed ORIENTATION IMPAIRMENT: None MEMORY IMPAIRMENT: None ATTENTION: Full HALLUCINATIONS: Denies SUICIDALITY: Denies HOMICIDALITY: Denies DELUSIONS: Spiritual, fixed INSIGHT: Poor JUDGMENT: Poor Treatment RECOMMENDATIONS-- Patient is taking his meds. Staff to encourage daily hygiene, encourage him to sit on the bed every few hours if possible, small things daily to bring him slowly to baseline. 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
[2025-02-03 06:00] VITALS: BP 95/59; PULSE 54; RESP 14; TEMP 97.6; O2SAT 94
[2025-02-03 08:00] VITALS: BP_SYST 92; BP_SYST 98; BP_SYST 99; BP_DIAS 57; BP_DIAS 58; BP_DIAS 66; PULSE 66; PULSE 75; PULSE 77
[2025-02-03 10:00] VITALS: BP 92/58; PULSE 66; RESP 14; TEMP 98.4; O2SAT 96
--- NOTE | 2025-02-03 13:00 | PROGRESS NOTE- Residence ---
Progress Note - Resident Providers to CC Resident Creating Document: JOE HOUSTON RES CC: KANU HAILE MD ~ Antibiotic Timeout Antibiotic Ordered?: No Subjective Patient is seen this morning, and his is also at bedside. He also has a sitter. He stated he is feeling tired, doesnt want to eat or drink. He had no bowel movement. He refused labs this morning. Initially he refused to get a PICC line, and after explaining to the patient the advantages of the PICC line, he agreed Objective Vital Signs Date Time Temp Pulse Resp B/P (MAP) Pulse Ox O2 Delivery O2 Flow Rate FiO2 02/03/25 08:00 Room Air 02/03/25 06:00 97.6 54 14 95/59 (57) 94 Result Diagram: 02/02/25 0515 General: Adult male, severely malnourished with temporal hollowing appears dehydrated, not in apparent distress Head: Normocephalic with an atraumatic Eyes: Pupils- 3mm, reacting to light, conjunctiva- anicteric Nose and throat: No polyps, septum- normal, no mucosal ulcers Neck: Supple, no lymphadenopathy, no carotid bruit Respiratory: No use of accessory muscles of respiration, Bilateral normal breath sounds heard. No wheeze, rhochi or creps Cardiac: S1-S2 heard, rythm regular, no gallop/murmur Abdomen: non distended, no tenderness, no organomegaly, bowel sounds- heard Extremities: no clubbing, no pedal edema, no deformities, peripheral pulses- 2+ Skin: warm and dry, no rash, no purpura Neuro: No focal deficit, gross cranial nerve exam- normal Assessment Assessment 44-year-old male, with schizophrenia, anxiety, gravely disabled, admitted for management of severe dehydration and hypernatremia Plan Plan Severe dehydration -persistent as patient is still refusing eat or drink -started on PPN from 01/30- on Clinimix E with a goal rate of 100 mL per hr, transition to TPN once PICC line is placed Hypernatremia, resolved Hyperchloremia- resolved -likely 2/2 hypovolemic hyperatremia/dehydration from starvation -monitor BMP daily- refused labs today Hypoglycemia -resolved -started on ppn from 01/30 Hyperglycemia -suspect likely secondary to PPN -patient refusing accuchecks Starvation ketoacidosis Self induced starvation 2/2 schizophrenia -not taking food for the past one week -currently on PPN ALISA-resolved -likely prerenal secondary to renal tubular stasis -cr- back to baseline -monitor BMP Hypokalemia- resolved -2/2 starvation -monitor BMP daily Schizophrenia Anxiety disorder -continue haloperidol 5 mg b.i.d., Zyprexa 10 mg HS, and Remeron 15 mg h.s. -[facility] team following the patient daily Gravely disabled -1798 hold, daily renewal Severe PEM secondary to starvation Severe starvation -Patient cotinues to refuse foods, he is okay with having tablets that can dissolve in the mouth -ensure enlive tid -started on PPN on 01/30, monitor blood glucose and TGs -monitor for refeeding syndrome when he resumes diet Hypophosphatemia- resolved Constipation -started on Colace 100 mg p.o. daily and p.r.n. milk of mag PICC line placement today Code Status: FULL CODE Line/tube: PICC DVT prophylaxis: Lovenox- Patient is refusing, start on SCDs Nutrition: tpn PT: No Prognosis: Guarded Disposition: Continue care in ortho floor, will transfer to [facility] once patient is medically cleared Date of Service: Feb 03, 2025 Billing Provider: KANU HAILE MD Common Visit Codes: [id number] INP/OBS CARE(HIGH) JOE HOUSTON, RES Feb 03, 2025 13:00 KANU HAILE MD Feb 13, 2025 13:40
[2025-02-03 13:33] LABS: MEAN PLATELET VOLUME 9.7 FL (7.4-10.4); RED CELL DISTRIBUTION WIDTH 13.3 % (11.5-14.5)
[2025-02-03 13:50] LABS: CREATININE 0.67 MG/DL (0.60-1.10); PHOSPHORUS 3.1 MG/DL (2.3-4.5); TOTAL CARBON DIOXIDE 30.2 MMOL/L (24-32); eCRCL 114 ML/MIN; eGFR > 90 ML/MIN
--- NOTE | 2025-02-03 16:38 | PROGRESS NOTE ---
Progress Note Dictate Providers to CC ~ Antibiotic Ordered?: No Objective Vitals Vital Signs Date Time Temp Pulse Resp B/P (MAP) Pulse Ox O2 Delivery O2 Flow Rate FiO2 02/03/25 10:00 98.4 66 14 92/58 (69) 96 Room Air Lab Results: 02/03/25 1317 02/03/25 1317 Psychiatrist's Progress Note Date of Service: Feb 03, 2025 Notes PATIENT NAME: ASHVIN YUEN DATE OF EVALUATION: FEBRUARY 03, 2025 CONSULTING PROVIDER: BERNADETTE BARBOUR CONSULTING SERVICE: PSYCHIATRY MANAGING MEDICAL PROVIDER: KANU HAILE MD REASON FOR CONSULTATION: MEDICATION MANAGEMENT ASSESSMENT: Patient was seen via Telehealth, states he feels very tired today, brushed his teeth in the morning and also walked to the bathroom which has made him very exhausted. Still not eating but not hyper focused on his delusions. Discussed meds, he agreed to have medication dose increased. And will also continue to get out of bed and move around for exercise as much as he can. Mental Status SPEECH: hesittant EYE CONTACT: Appropriate BEHAVIOR: Cooperative AFFECT: flat MOOD: depressed ORIENTATION IMPAIRMENT: None MEMORY IMPAIRMENT: None ATTENTION: Full HALLUCINATIONS: Denies SUICIDALITY: Denies HOMICIDALITY: Denies DELUSIONS: Spiritual, fixed INSIGHT: Poor JUDGMENT: Poor Treatment RECOMMENDATIONS-- Patient is not eating but progressing well AEB taking care of his hygiene and also getting out of bed. 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
[2025-02-03 18:30] VITALS: BP 101/67; PULSE 71; RESP 13; TEMP 98.1; O2SAT 98
[2025-02-03] MEDS: ZINC/COPPER/MANGANESE/SELENIUM 1 ML, chromic chloride inj. 10 MCG in AA 5%/CALCIUM/LYTE... IV SCH (19:33)
[2025-02-03 20:00] VITALS: BP_SYST 87; BP_SYST 89; BP_SYST 90; BP_DIAS 46; BP_DIAS 49; BP_DIAS 51; PULSE 56; PULSE 64; PULSE 72
[2025-02-03 22:00] VITALS: BP 90/46; PULSE 56; RESP 17; TEMP 97.9; O2SAT 97
[2025-02-04] VITALS (7 sets, daily range): BP systolic 82–94; BP diastolic 46–69; PULSE 60–91; RESP 14–17; TEMP 97.6–99.1; O2SAT 98
[2025-02-04 06:25] LABS: CREATININE 0.61 MG/DL (0.60-1.10); PHOSPHORUS 3.6 MG/DL (2.3-4.5); TOTAL CARBON DIOXIDE 29.4 MMOL/L (24-32); eCRCL 125 ML/MIN; eGFR > 90 ML/MIN
[2025-02-04] MEDS: thiamine 100mg/ml 2ml inj. IV SCH (07:36)
--- NOTE | 2025-02-04 11:10 | PROGRESS NOTE- Residence ---
Progress Note - Resident Providers to CC Resident Creating Document: JOE HOUSTON RES CC: KANU HAILE MD ~ Antibiotic Timeout Antibiotic Ordered?: No Subjective Patient is seen this morning, sitter is at bedside. Patient stated he is having some abdominal pain, this is likely due to muscle spasm. Denies nausea or vomitings. Patient states that he is feeling something moving in his abdomen and thinks blood magic was casted on his belly. Discussed with patient that terminal makeup operator avoiding of enteral nutrition itself can lead to multiple complications and that tpn can also increase the fungal infections. and we discussed regarding the NG tube feeding, he stated he needs time to think about it and let us know tomorrow Objective Vital Signs Date Time Temp Pulse Resp B/P (MAP) Pulse Ox O2 Delivery O2 Flow Rate FiO2 02/04/25 10:00 98.1 67 16 91/56 (68) 98 Room Air Result Diagram: 02/03/25 1317 02/04/25 0430 General: Adult male, severely malnourished with temporal hollowing appears dehydrated, not in apparent distress Head: Normocephalic with an atraumatic Eyes: Pupils- 3mm, reacting to light, conjunctiva- anicteric Nose and throat: No polyps, septum- normal, no mucosal ulcers Neck: Supple, no lymphadenopathy, no carotid bruit Respiratory: No use of accessory muscles of respiration, Bilateral normal breath sounds heard. No wheeze, rhochi or creps Cardiac: S1-S2 heard, rythm regular, no gallop/murmur Abdomen: non distended, no tenderness, no organomegaly, bowel sounds- heard Extremities: no clubbing, no pedal edema, no deformities, peripheral pulses- 2+ Skin: warm and dry, no rash, no purpura Neuro: No focal deficit, gross cranial nerve exam- normal Assessment Assessment 44-year-old male, with schizophrenia, anxiety, gravely disabled, admitted for management of severe dehydration and hypernatremia Plan Plan Severe dehydration -persistent as patient is still refusing eat or drink -started on PPN from 01/30, and then transitioned to TPN on 02/03 Hypernatremia, resolved Hyperchloremia- resolved -likely 2/2 hypovolemic hyperatremia/dehydration from starvation -monitor BMP daily- Hypoglycemia -resolved -currently on TPN from 02/03 Starvation ketoacidosis Self induced starvation 2/2 schizophrenia -not taking food for the past 2 weeks -currently on TPN -follow up with patient regarding NG tube feeds tomorrow ALISA-resolved -likely prerenal secondary to renal tubular stasis -cr- back to baseline -monitor BMP Hypokalemia- -2/2 starvation -potassium 3.3 -replace potassium per protocol Schizophrenia Anxiety disorder -as per [facility] recommendations increased the dose of Zyprexa to 15 mg HS -continue haloperidol 5 mg b.i.d., Zyprexa 15 mg HS, and Remeron 15 mg h.s. -[facility] team following the patient daily Gravely disabled -1798 hold, daily renewal Severe PEM secondary to starvation Severe starvation -Patient cotinues to refuse foods, he is okay with having tablets that can dissolve in the mouth -ensure enlive tid -started on PPN on 01/30, transitioned to TPN on 02/03 -monitor for refeeding syndrome -continue IV thiamine 100 mg once daily for seven days Hypophosphatemia- resolved Constipation -started on Colace 100 mg p.o. daily and p.r.n. milk of mag Code Status: FULL CODE Line/tube: Right PICC DVT prophylaxis: Lovenox- Patient is refusing, start on SCDs Nutrition: tpn PT: No Prognosis: Guarded Disposition: Continue care in ortho floor, will transfer to [facility] once patient is medically cleared Date of Service: Feb 04, 2025 Billing Provider: KANU HAILE MD Common Visit Codes: [id number] INP/OBS CARE(HIGH) JOE HOUSTON, RES Feb 04, 2025 11:10 KANU HAILE MD Feb 13, 2025 13:40
--- NOTE | 2025-02-04 17:26 | PROGRESS NOTE ---
Progress Note Dictate Providers to CC ~ Central Line/PICC still needed: N\\A Antibiotic Ordered?: No Objective Vitals Vital Signs Date Time Temp Pulse Resp B/P (MAP) Pulse Ox O2 Delivery O2 Flow Rate FiO2 02/04/25 10:00 98.1 67 16 91/56 (68) 98 Room Air Lab Results: 02/03/25 1317 02/04/25 0430 Problem\\Assessment\\Plan Problems/Diagnosis: (1) Schizophrenia (2) Failure to thrive (3) Gravely disabled (4) Major depression Psychiatrist's Progress Note Date of Service: Feb 04, 2025 Notes PATIENT NAME: ASHVIN YUEN DATE OF EVALUATION: February 04, 2025 CONSULTING PROVIDER: BIANCA GONZALES PA-C CONSULTING SERVICE: PSYCHIATRY MANAGING MEDICAL PROVIDER: KANU HAILE MD REASON FOR CONSULTATION: MEDICATION MANAGEMENT ASSESSMENT: Patient seen in his room on medical floor. He smiles and greets me tonight. He states he was tired this morning... he has been up and down to side of the bed. Trying to use his leg muscles. He states that he has got up to standing with walker. He states that he brushed his teeth 3x today. He is not eating or drinking by mouth. 'I feel not very well.' He says 'if I have the food it will become more worse... I think it may be poison,' He says he has not been having BMs d/t no food. very little voiding. he is emaciated in appearance. states he is sleeping good. States he is not depressed and 'don't want to ,' 'afraid to get poisoned' Mental Status MENTAL STATUS APPEARANCE: TALL, THIN MANDARIN MALE. LESS DISHEVELED SPEECH: SLOW, SOFT EYE CONTACT: FAIR MOTOR ACTIVITY: PSYCHOMOTOR RETARDATION AFFECT: CONSTRICTED WITH SOME BRIGHTENING MOOD: "I THINK IF I EAT I WILL BE POISONED.' ORIENTATION IMPAIRMENT: NONE MEMORY IMPAIRMENT: NONE ATTENTION: FULL HALLUCINATIONS: DENIES SUICIDALITY: DENIES STATES HE WANTS TO LIVE HOMICIDALITY: DENIES DELUSIONS: PARANOID DELUSIONS. BEHAVIORS: COOPERATIVE INSIGHT: POOR JUDGMENT: POOR Treatment Remeron 15mg hs. ZYPREXA ZYDIS 15 MG P.O. Q.H.S. HALDOL 5 MG PO BID- We can titrate up to see if patient has better results with Haldol versus Zyprexa-- and if responding to the Haldol we will decrease and d/c Zyprexa. Total Time Spent 120 minutes REVIEW OF Clinical notes [X ] RN notes [X] PCT documentation [X] SW notes Labs [ X] Medications [X] Care trends/care activity [X] Vitals [X] DISCUSSION WITH vp software [X] PSYCHIATRY WILL CONTINUE TO FOLLOW DAILY CODING VISIT-PSYCHIATRY Date of Service: Feb 04, 2025 Billing Provider: BIANCA GONZALES Psych Common Visit Codes: [id number] INP/OBS CARE(High) Problem Qualifiers (1) Schizophrenia: Qualified Codes: F20.9 - Schizophrenia, unspecified (2) Failure to thrive: Qualified Codes: R62.7 - Adult failure to thrive (3) Major depression: Qualified Codes: F32.9 - Major depressive disorder, single episode, unspecified BIANCA GONZALES Feb 04, 2025 17:26
[2025-02-04] MEDS ORDERED: DEXTROSE 15 GM of carb/4 tabs (each vial/BOTTLE has 4 tablets) PO PRN ×2 (19:00)
[2025-02-04] MEDS ORDERED: glucagon, human recombinant 1mg kit SUBCUT PRN (19:00)
[2025-02-04] MEDS ORDERED: dextrose 50%-water 50ml dispensing syringe IV PRN ×2 (19:00)
[2025-02-04] MEDS: insulin regular, human U-100 10ml vial - multi-dose SQ SCH (20:00)
[2025-02-04] MEDS: OLANZAPINE 5 MG TABLET PO SCH (20:38)
[2025-02-05 05:24] VITALS: BP 95/53; PULSE 66; RESP 16; TEMP 98; O2SAT 99
[2025-02-05 07:20] LABS: CREATININE 0.69 MG/DL (0.60-1.10); PHOSPHORUS 3.0 MG/DL (2.3-4.5); TOTAL CARBON DIOXIDE 29.1 MMOL/L (24-32); eCRCL 111 ML/MIN; eGFR > 90 ML/MIN
[2025-02-05 08:00] VITALS: BP_SYST 87; BP_SYST 89; BP_SYST 94; BP_DIAS 47; BP_DIAS 53; BP_DIAS 55; PULSE 63; PULSE 67; PULSE 75
[2025-02-05 10:00] VITALS: BP 94/53; PULSE 63; RESP 17; TEMP 98.6; O2SAT 98
[2025-02-05 11:58] LABS: MEAN PLATELET VOLUME 9.8 FL (7.4-10.4); RED CELL DISTRIBUTION WIDTH 13.1 % (11.5-14.5)
--- NOTE | 2025-02-05 12:36 | PROGRESS NOTE ---
Progress Note Dictate Providers to CC ~ Central Line/PICC still needed: N\\A Antibiotic Ordered?: No Objective Vitals Vital Signs Date Time Temp Pulse Resp B/P (MAP) Pulse Ox O2 Delivery O2 Flow Rate FiO2 02/05/25 05:24 98.0 66 16 95/53 (67) 99 Room Air Lab Results: 02/05/25 1144 02/05/25 0542 Problem\\Assessment\\Plan Problems/Diagnosis: (1) Schizophrenia (2) Failure to thrive (3) Gravely disabled (4) Major depression Psychiatrist's Progress Note Date of Service: Feb 05, 2025 Notes PATIENT NAME: ASHVIN YUEN DATE OF EVALUATION: February 05, 2025 CONSULTING PROVIDER: BIANCA GONZALES PA-C CONSULTING SERVICE: PSYCHIATRY MANAGING MEDICAL PROVIDER: KANU HAILE MD REASON FOR CONSULTATION: MEDICATION MANAGEMENT Patient is lying in bed on medical floor with sitter near by. He greets me with a big smile and says he remembers me. He says that today he has got up to the side of the bed to sit for about 10 min at a time. He has stood up using the walker. He is not ambulating. He says he brushed his teeth 3x today. He denies depression, anxiety. Denies being suicidal. He has not had food or drink. He is on TPN and IV Fluids. He says that he will not eat or drink because 'it will be worse.' 'because poison to heart, lungs, brain...' 'it's bad I think' to eat and drink. He slept last night and napped. He says that he feels from 11a-3pm his 'heart is weak.' and 'many thoughts in my head.' Denies AH/VH. Mental Status MENTAL STATUS APPEARANCE: TALL, THIN MANDARIN MALE. LESS DISHEVELED SPEECH: SLOW, SOFT EYE CONTACT: FAIR MOTOR ACTIVITY: PSYCHOMOTOR RETARDATION AFFECT: CONSTRICTED WITH SOME BRIGHTENING MOOD: "I THINK IF I EAT I WILL BE POISONED.' ORIENTATION IMPAIRMENT: NONE MEMORY IMPAIRMENT: NONE ATTENTION: FULL HALLUCINATIONS: DENIES SUICIDALITY: DENIES STATES HE WANTS TO LIVE HOMICIDALITY: DENIES DELUSIONS: PARANOID DELUSIONS. BEHAVIORS: COOPERATIVE INSIGHT: POOR JUDGMENT: POOR Results Of any Diagn. Testing reviewed labs Treatment Will increase Remeron to help with appetite and I'm seeing him brighten a little bit. Increase the Haldol. INCREASE Remeron 30mg hs. ZYPREXA ZYDIS 15 MG P.O. Q.H.S. INCREASE HALDOL 7.5 MG PO BID- We can titrate up to see if patient has better results with Haldol versus Zyprexa-- and if responding to the Haldol we will decrease and d/c Zyprexa. Total Time Spent 120 minutes REVIEW OF Clinical notes [X ] RN notes [X] PCT documentation [X] SW notes Labs [ X] Medications [X] Care trends/care activity [X] Vitals [X] PSYCHIATRY WILL CONTINUE TO FOLLOW DAILY CODING VISIT-PSYCHIATRY Date of Service: Feb 05, 2025 Billing Provider: BIANCA GONZALES Psych Common Visit Codes: [id number] INP/OBS CARE(Mod) Psych Consult Codes: [id number] - INP CONSULT - 40 MIN Problem Qualifiers (1) Schizophrenia: Qualified Codes: F20.9 - Schizophrenia, unspecified (2) Failure to thrive: Qualified Codes: R62.7 - Adult failure to thrive (3) Major depression: Qualified Codes: F32.9 - Major depressive disorder, single episode, unspecified BIANCA GONZALES Feb 05, 2025 12:36
--- NOTE | 2025-02-05 16:08 | PROGRESS NOTE- Residence ---
Progress Note - Resident Providers to CC Resident Creating Document: CHAVA BOWENS RES ~ Antibiotic Timeout Antibiotic Ordered?: No Subjective Patient is seen this morning, sitter is at bedside. Patient continues to not eat his meals. Drinks a little bit of water while washing his face or brushing his teeth. No other acute overnight symptoms noted Objective Vital Signs Date Time Temp Pulse Resp B/P (MAP) Pulse Ox O2 Delivery O2 Flow Rate FiO2 02/05/25 10:00 98.6 63 17 94/53 (67) 98 Room Air General: Adult male, severely malnourished with temporal hollowing appears dehydrated, not in apparent distress Head: Normocephalic with an atraumatic Eyes: Pupils- 3mm, reacting to light, conjunctiva- anicteric Nose and throat: No polyps, septum- normal, no mucosal ulcers Neck: Supple, no lymphadenopathy, no carotid bruit Respiratory: No use of accessory muscles of respiration, Bilateral normal breath sounds heard. No wheeze, rhochi or creps Cardiac: S1-S2 heard, rythm regular, no gallop/murmur Abdomen: non distended, no tenderness, no organomegaly, bowel sounds- heard Extremities: no clubbing, no pedal edema, no deformities, peripheral pulses- 2+ Skin: warm and dry, no rash, no purpura Neuro: No focal deficit, gross cranial nerve exam- normal Result Diagram: 02/05/25 1144 02/05/25 0542 Assessment Assessment 44-year-old male, with schizophrenia, anxiety, gravely disabled, admitted for management of severe dehydration and hypernatremia Plan Plan Severe dehydration -persistent as patient is still refusing eat or drink -started on PPN from 01/30, and then transitioned to TPN on 02/03 Hypernatremia, resolved Hyperchloremia- resolved -likely 2/2 hypovolemic hyperatremia/dehydration from starvation -monitor BMP daily Hypoglycemia -resolved -currently on TPN from 02/03 Starvation ketoacidosis Self induced starvation 2/2 schizophrenia -not taking food for the past 2 weeks -currently on TPN -discussed with patient the need of a NG tube, he said he was not sure about it ALISA-resolved -likely prerenal secondary to renal tubular stasis -cr- back to baseline -monitor BMP Hypokalemia, resolved -2/2 starvation -potassium 3.5 -replace potassium per protocol Schizophrenia Anxiety disorder -as per [facility] recommendations increased the dose of Zyprexa to 15 mg HS -continue haloperidol 5 mg b.i.d., Zyprexa 15 mg HS, and Remeron 15 mg h.s. -[facility] team following the patient daily Gravely disabled -1798 hold, daily renewal Severe PEM secondary to starvation Severe starvation -Patient cotinues to refuse foods, he is okay with having tablets that can dissolve in the mouth -ensure enlive tid -started on PPN on 01/30, transitioned to TPN on 02/03 -monitor for refeeding syndrome -continue IV thiamine 100 mg once daily for seven days Hypophosphatemia- resolved Constipation -started on Colace 100 mg p.o. daily and p.r.n. milk of mag Code Status: FULL CODE Line/tube: Right PICC DVT prophylaxis: Lovenox- Patient is refusing, start on SCDs Nutrition: tpn PT: No Prognosis: Guarded Disposition: Continue care in ortho floor, will transfer to [facility] once patient is medically cleared Chava Bowens Internal medicine resident,PGY-1 Date of Service: Feb 05, 2025 Billing Provider: KANU HAILE MD Common Visit Codes: [id number] INP/OBS CARE(HIGH) CHAVA BOWENS, RES Feb 05, 2025 16:08 KANU HAILE MD Feb 13, 2025 13:40
[2025-02-05 18:00] VITALS: BP 92/50; PULSE 63; RESP 14; TEMP 98.3; O2SAT 97
[2025-02-05 20:00] VITALS: BP_SYST 88; BP_SYST 92; BP_SYST 93; BP_DIAS 49; BP_DIAS 50; BP_DIAS 56; PULSE 63; PULSE 67; PULSE 72
[2025-02-05] MEDS: ZINC/COPPER/MANGANESE/SELENIUM 1 ML, chromic chloride inj. 10 MCG in AA 5%/CALCIUM/LYTE... IV SCH (20:15)
[2025-02-05 22:00] VITALS: BP 86/47; PULSE 56; RESP 16; TEMP 97.9; O2SAT 98
[2025-02-06 04:30] LABS: CREATININE 0.70 MG/DL (0.60-1.10); PHOSPHORUS 3.2 MG/DL (2.3-4.5); TOTAL CARBON DIOXIDE 31.4 MMOL/L (24-32); eCRCL 109 ML/MIN; eGFR > 90 ML/MIN
[2025-02-06 06:00] VITALS: BP 92/47; PULSE 60; RESP 16; TEMP 97.6; O2SAT 97
[2025-02-06 08:00] VITALS: BP_SYST 88; BP_SYST 95; BP_SYST 97; BP_DIAS 52; BP_DIAS 54; BP_DIAS 56; PULSE 68; PULSE 71; PULSE 80
[2025-02-06 10:00] VITALS: BP 95/56; PULSE 74; RESP 12; TEMP 97.3; O2SAT 99
[2025-02-06 18:00] VITALS: BP 89/55; PULSE 62; RESP 12; TEMP 98; O2SAT 99
--- NOTE | 2025-02-06 18:08 | PROGRESS NOTE- Residence ---
Progress Note - Resident Providers to CC Resident Creating Document: PASCUAL SOTO RES ~ Antibiotic Timeout Antibiotic Ordered?: No Subjective Patient is seen this morning, sitter is at bedside. Responding to verbal response by nodding his head. Patient continues to not eat his meals. No new events. On TPN via PICC line at 75 mL/hour. He refused blood glucose level checking by stating blood sugar is fine. Objective Vital Signs Date Time Temp Pulse Resp B/P (MAP) Pulse Ox O2 Delivery O2 Flow Rate FiO2 02/06/25 10:00 97.3 74 12 95/56 (69) 99 Room Air Result Diagram: 02/05/25 1144 02/06/25 0400 General:severely malnourished with temporal wasting. appears dehydrated, not in apparent distress. On TPN nutrition. Head: Normocephalic with an atraumatic Eyes: Pupils- 3mm, reacting to light, conjunctiva- anicteric Nose and throat: No polyps, septum- normal, no mucosal ulcers Neck: Supple, no lymphadenopathy, no carotid bruit Respiratory: No use of accessory muscles of respiration, Bilateral normal breath sounds heard. No wheeze, rhochi or creps Cardiac: S1-S2 heard, rythm regular, no gallop/murmur Abdomen: non distended, no tenderness, no organomegaly, bowel sounds- heard Extremities: no clubbing, no pedal edema, no deformities, peripheral pulses- 2+ Skin: warm and dry, no rash, no purpura Neuro: No focal neurological deficits Advance Care Planning Advanced Care plannin - 30 Minutes Assessment Assessment 44-year-old male, with schizophrenia, anxiety, gravely disabled, admitted for management of severe dehydration and hypernatremia Plan Plan Severe dehydration with hypotension -persistent as patient is still refusing eat or drink -blood pressures are maintaining in 90s -started on PPN from 01/30, and then transitioned to TPN on 02/03 at the rate of 75 mL/hour Hypernatremia, resolved Hyperchloremia- resolved -likely 2/2 hypovolemic hyperatremia/dehydration from starvation Sodium is 141, potassium is 3.5. monitor BMP daily Hypoglycemia -resolved and blood glucose is in 120s -currently on TPN from 02/03 at the rate of 75 mL/hour -refused rechecking blood glucose levels Starvation ketoacidosis Self induced starvation 2/2 schizophrenia -not taking food for the past 2 weeks -currently on TPN -discussed with patient the need of a NG tube, he said he was not sure about it ALISA-resolved -likely prerenal secondary to renal tubular stasis Creatinine is normal and stabilize -monitor BMP Hypokalemia, resolved -2/2 starvation -potassium 3.5 -replace potassium per protocol Schizophrenia Anxiety disorder -as per [facility] recommendations increased the dose of Zyprexa to 15 mg HS -continue haloperidol 5 mg b.i.d., Zyprexa 15 mg HS, and Remeron 15 mg h.s. -[facility] [place] team following the patient daily Gravely disabled -renewed 1798 hold, daily renewal Severe PEM secondary to starvation Severe starvation -Patient cotinues to refuse foods, he is okay with having tablets that can dissolve in the mouth -ensure enlive tid -started on PPN on 01/30, transitioned to TPN on 02/03 -monitor for refeeding syndrome -continue IV thiamine 100 mg once daily for seven days Hypophosphatemia- resolved Constipation. Does not have any bowel movement today. -started on Colace 100 mg p.o. daily and p.r.n. milk of mag Code Status: FULL CODE Line/tube: Right PICC DVT prophylaxis: on SCDs Nutrition: tpn PT: No Prognosis: Guarded Disposition: On TPN and he needs to be transferred to [facility] unit if medically stable. Pascual Soto IM resident, PGY 2 Date of Service: Feb 06, 2025 Billing Provider: KANU HAILE MD Common Visit Codes: [id number] INP/OBS CARE(MOD) PASCUAL SOTO, RES Feb 06, 2025 18:08 KANU HAILE MD Feb 13, 2025 13:40
[2025-02-06 20:00] VITALS: BP 89/53; PULSE 57; RESP 12; O2SAT 99
[2025-02-06 22:00] VITALS: BP 89/53; PULSE 57; RESP 15; TEMP 98.1; O2SAT 99
[2025-02-07] VITALS (7 sets, daily range): BP systolic 80–111; BP diastolic 38–75; PULSE 61–90; RESP 14–16; TEMP 97.7–98.5; O2SAT 94–99
[2025-02-07 06:05] LABS: MEAN PLATELET VOLUME 10.2 FL (7.4-10.4); RED CELL DISTRIBUTION WIDTH 13.6 % (11.5-14.5)
[2025-02-07 06:55] LABS: CREATININE 0.74 MG/DL (0.60-1.10); PHOSPHORUS 3.0 MG/DL (2.3-4.5); TOTAL CARBON DIOXIDE 29.5 MMOL/L (24-32); eCRCL 103 ML/MIN; eGFR > 90 ML/MIN
[2025-02-07] MEDS: normal saline 1000ml 1,000 ML IV SCH (08:30)
--- NOTE | 2025-02-07 13:43 | PROGRESS NOTE- Residence ---
Progress Note - Resident Providers to CC Resident Creating Document: PASCUAL SOTO RES ~ Antibiotic Timeout Antibiotic Ordered?: No Subjective Patient is seen this morning, sitter is at bedside and continuing on 1798. Responding to verbal commands but he is not accepting the feeds both solids and liquids. ON TPN. Objective Vital Signs Date Time Temp Pulse Resp B/P (MAP) Pulse Ox O2 Delivery O2 Flow Rate FiO2 02/07/25 11:32 Room Air 02/07/25 10:00 98.5 67 14 111/75 87 94 Result Diagram: 02/07/25 0505 02/07/25 0505 General:severely malnourished with temporal wasting. appears dehydrated but improved, not in apparent distress. On TPN nutrition. Head: Normocephalic with an atraumatic Eyes: Pupils- 3mm, reacting to light, conjunctiva- anicteric Nose and throat: No polyps, septum- normal, no mucosal ulcers. Lips and oral cavity is dry Neck: Supple, no lymphadenopathy, no carotid bruit Respiratory: No use of accessory muscles of respiration, Bilateral normal breath sounds heard. No wheeze, rhochi or creps Cardiac: S1-S2 heard, rythm regular, no gallop/murmur Abdomen: non distended, no tenderness, no organomegaly, bowel sounds- heard Extremities: no clubbing, no pedal edema, no deformities, peripheral pulses- 2+ Skin: warm and dry, no rash, no purpura Neuro: No focal neurological deficits Advance Care Planning Advanced Care plannin - 30 Minutes Assessment Assessment 44-year-old male, with schizophrenia, anxiety, gravely disabled, admitted for management of severe dehydration and hypernatremia Plan Plan Severe dehydration with hypotension persistent as patient is still refusing eat or drink blood pressures are maintaining in less than 90s and started on IV normal saline at the rate of 100 mL/hour On TPN from 02/03 at the rate of 75 mL/hour Hypernatremia, resolved Hyperchloremia- resolved -likely 2/2 hypovolemic hyperatremia/dehydration from starvation Sodium is 140, potassium is 3.5. monitor BMP daily Hypoglycemia -resolved and blood glucose is in 100s -currently on TPN from 02/03 at the rate of 75 mL/hour Continue to monitor serum glucose. Starvation ketoacidosis Self induced starvation 2/2 schizophrenia -not taking food for the past 2 weeks -currently on TPN He may probably need the PEG tube placement and may need higher level of [facility] transfer ALISA-resolved -likely prerenal secondary to renal tubular stasis Creatinine is normal and stabilize -monitor BMP Hypokalemia, resolved -2/2 starvation -potassium 3.5 -replace potassium per protocol Schizophrenia Anxiety disorder -as per [facility] recommendations increased the dose of Zyprexa to 15 mg HS -continue haloperidol 5 mg b.i.d., Zyprexa 15 mg HS, and Remeron 15 mg h.s. -[facility] team following the patient daily Gravely disabled -renewed 1798 hold, daily renewal Severe PEM secondary to starvation Severe starvation -Patient cotinues to refuse foods, he is okay with having tablets that can dissolve in the mouth -ensure enlive tid -started on PPN on 01/30, transitioned to TPN on 02/03 -monitor for refeeding syndrome -continue IV thiamine 100 mg once daily for seven days May Need PEG tube placement for feeding if he is not accepting feeds Hypophosphatemia- resolved Constipation. -started on Colace 100 mg p.o. daily and p.r.n. milk of mag Code Status: FULL CODE Line/tube: Right PICC DVT prophylaxis: on SCDs Nutrition: tpn PT: No Prognosis: Guarded Disposition: On TPN and he needs to be transferred to [facility] unit if medically stable. Pascual Soto IM resident, PGY 2 Date of Service: Feb 07, 2025 Billing Provider: KANU HAILE MD Common Visit Codes: [id number] INP/OBS CARE(MOD) PASCUAL SOTO, RES Feb 07, 2025 13:43 KANU HAILE MD Feb 13, 2025 13:40
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
[2025-02-08 05:03] LABS: CREATININE 0.67 MG/DL (0.60-1.10); PHOSPHORUS 2.6 MG/DL (2.3-4.5); TOTAL CARBON DIOXIDE 30.9 MMOL/L (24-32); eCRCL 109 ML/MIN; eGFR > 90 ML/MIN
[2025-02-08 06:00] VITALS: BP 95/57; PULSE 73; RESP 17; TEMP 97.3; O2SAT 99
[2025-02-08 08:00] VITALS: BP_SYST 90; BP_SYST 92; BP_SYST 98; BP_DIAS 44; BP_DIAS 49; BP_DIAS 52; PULSE 62; PULSE 63
[2025-02-08 10:00] VITALS: BP 90/44; PULSE 79; RESP 12; TEMP 97.4; O2SAT 99
--- NOTE | 2025-02-08 16:29 | PROGRESS NOTE- Residence ---
Progress Note - Resident Providers to CC Resident Creating Document: TL SOTO, MELISSA ~ Antibiotic Timeout Antibiotic Ordered?: No Subjective Patient is seen this morning, sitter is at bedside and continuing on 1798. Responding to verbal commands but he is not accepting the feeds both solids and liquids and currently on TPN. Endorses mild abdominal pain and more episodes of loose stools, seems to be semi formed and without any foul smelling(per RN). We spoke with Ms. Gutierrez, nurse practitioner at [facility] over the telephone. Objective Vital Signs Date Time Temp Pulse Resp B/P (MAP) Pulse Ox O2 Delivery O2 Flow Rate FiO2 02/08/25 10:00 97.4 79 12 90/44 (59) 99 Room Air Result Diagram: 02/07/25 0505 02/08/25 0415 General:severely malnourished with temporal wasting. but improved mentation when compared to the previous day's, not in apparent distress. On TPN nutrition. Head: Normocephalic with an atraumatic Eyes: Pupils- 3mm, reacting to light, conjunctiva- anicteric Nose and throat: No polyps, septum- normal, no mucosal ulcers. Lips and oral cavity is still dry Neck: Supple, no lymphadenopathy, no carotid bruit Respiratory: No use of accessory muscles of respiration, Bilateral normal breath sounds heard. No wheeze, rhochi or creps Cardiac: S1-S2 heard, rythm regular, no gallop/murmur Abdomen: non distended, no tenderness, no organomegaly, bowel sounds- heard Extremities: no clubbing, no pedal edema, no deformities, peripheral pulses- 2+ Skin: warm and dry, no rash, no purpura Neuro: No focal neurological deficits Advance Care Planning Advanced Care plannin - 30 Minutes Assessment Assessment 44-year-old male, with schizophrenia, anxiety, gravely disabled, admitted for management of severe dehydration and hypernatremia Plan Plan Severe dehydration with hypotension, improving persistent as patient is still refusing feeds- eat or drink On IV normal saline 50 mL/hour and blood pressures, map is maintaining more than 65 On TPN from 02/03 at the rate of 75 mL/hour via PICC line Hypernatremia, resolved Hypokalemia Hyperchloremia- resolved -likely 2/2 hypovolemic hypernatremia/dehydration from starvation Sodium is 140, potassium is 3.4 Replacing per protocol monitor BMP daily Hypoglycemia, resolved Currently in 120s -currently on TPN from 02/03 at the rate of 75 mL/hour Continue to monitor serum glucose. Starvation ketoacidosis Self induced starvation 2/2 schizophrenia -not taking food for the past 2 weeks -currently on TPN He may probably need the PEG tube placement and may need higher level of [facility] transfer ALISA-resolved -likely prerenal secondary to renal tubular stasis Creatinine is normal and stabilized -monitor BMP Hypokalemia, resolved -2/2 starvation -potassium 3.4 -replace potassium per protocol Schizophrenia Anxiety disorder Discontinued Haldol, mirtazapine, olanzapine trazodone On lorazepam challenge per Ms. Gutierrez, nurse practitioner with the instructions of Dr. Phelps , psychiatrist [facility] team following the patient daily Gravely disabled -renewed 1798 hold Renewing daily Severe PEM secondary to starvation Severe starvation -Patient cotinues to refuse foods, he is okay with having tablets that can dissolve in the mouth -ensure enlive tid -started on PPN on 01/30, transitioned to TPN on 02/03 -monitor for refeeding syndrome -continue IV thiamine 100 mg once daily for seven days May Need PEG tube placement for feeding if he is not accepting feeds Hypophosphatemia- resolved Constipation. -started on Colace 100 mg p.o. daily and p.r.n. milk of mag Code Status: Full code Line/tube: Right PICC DVT prophylaxis: on SCDs Nutrition: tpn PT: No Prognosis: Guarded Disposition: We had a conversation with Ms. uGtierrez , nurse practitioner, [facility]- per discussions between Ms. Gutierrez and Dr. Phelps, psychiatrist thinks that he meets criteria for catatonia but seems to be chronic and does not have any typical features/presentation and consistent with history of antipsychotic drugs. Discontinuing antipsychotic drugs except mirtazapine . they are going to do the lorazepam challenge but they think that it may not help him. Per Mr. Gutierrez, patient needs the ECT therapy and transfer for another psychiatric facility with ECT therapy. She agreed to work with us for possible transfer for higher Psychiatric Facility. Tl Soto resident, PGY 2 Date of Service: Feb 08, 2025 Billing Provider: KANU HAILE MD Common Visit Codes: [id number] INP/OBS CARE(HIGH) TL SOTO, RES Feb 08, 2025 16:28 KANU HAILE MD Feb 13, 2025 13:41
[2025-02-08 18:00] VITALS: BP 90/54; PULSE 74; RESP 12; TEMP 98; O2SAT 99
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
[2025-02-08 20:00] VITALS: BP_SYST 100; BP_SYST 111; BP_SYST 113; BP_DIAS 64; BP_DIAS 65; PULSE 74; PULSE 75; PULSE 84
[2025-02-08 22:02] VITALS: BP 111/64; PULSE 84; RESP 15; TEMP 97.8; O2SAT 99
[2025-02-09 04:32] LABS: CREATININE 0.72 MG/DL (0.60-1.10); PHOSPHORUS 2.0 MG/DL (2.3-4.5); TOTAL CARBON DIOXIDE 27.6 MMOL/L (24-32); eCRCL 108 ML/MIN; eGFR > 90 ML/MIN
[2025-02-09 06:00] VITALS: BP 110/71; PULSE 89; RESP 16; TEMP 97.3; O2SAT 100
[2025-02-09 10:00] VITALS: BP 117/66; PULSE 99; RESP 18; TEMP 97.8; O2SAT 99
[2025-02-09] MEDS ORDERED: sodium phosphate inj. 15 MMOL in dextrose 5%-water 250 ML IV PRN (10:40)
[2025-02-09] MEDS ORDERED: sodium phosphate inj. 30 MMOL in dextrose 5%-water 250 ML IV PRN (10:40)
[2025-02-09] MEDS: potassium phosphate inj 30 MMOL in normal saline 250ml IV soln 500 ML IV ONE (12:41)
[2025-02-09] MEDS: lactose-reduced food (Ensure Enlive) - 237ml bottle PO SCH (12:41)
[2025-02-09 18:00] VITALS: BP 112/68; PULSE 87; RESP 14; TEMP 98.3; O2SAT 98
--- NOTE | 2025-02-09 18:34 | PROGRESS NOTE- Residence ---
Progress Note - Resident Providers to CC Resident Creating Document: TL SOTO RES ~ Antibiotic Timeout Antibiotic Ordered?: No Subjective Seen and examined the patient at bedside. He had his full regular breakfast . Responding to verbal commands but he is accepting the feeds both solids and liquids and currently on TPN weaned from 75 to 50. Objective Vital Signs Date Time Temp Pulse Resp B/P (MAP) Pulse Ox O2 Delivery O2 Flow Rate FiO2 02/09/25 10:00 97.8 99 18 117/66 (83) 99 Room Air Result Diagram: 02/07/25 0505 02/09/25 0345 General:severely malnourished with temporal wasting. Alert, awake, oriented to time place person. On TPN nutrition. Head: Normocephalic with an atraumatic Eyes: Pupils- 3mm, reacting to light, conjunctiva- anicteric Nose and throat: No polyps, septum- normal, no mucosal ulcers. Lips and oral cavity is still dry Neck: Supple, no lymphadenopathy, no carotid bruit Respiratory: No use of accessory muscles of respiration, Bilateral normal breath sounds heard. No wheeze, rhochi or creps Cardiac: S1-S2 heard, rythm regular, no gallop/murmur Abdomen: non distended, no tenderness, no organomegaly, bowel sounds- heard Extremities: no clubbing, no pedal edema, no deformities, peripheral pulses- 2+ Skin: warm and dry, no rash, no purpura Neuro: No focal neurological deficits Advance Care Planning Advanced Care plannin - 30 Minutes Assessment Assessment 44-year-old male, with schizophrenia, anxiety, gravely disabled, admitted for management of severe dehydration and hypernatremia Plan Plan Severe dehydration with hypotension, improved Accepting the oral feeds On IV normal saline 100 mL/hour and blood pressures, map is maintaining more than 65 On TPN from 02/03 at the rate of 75 mL/hour via PICC line but we downgraded to 50 mL/hour on today Hypernatremia, resolved Hypokalemia, resolved Hyperchloremia- resolved Hypophosphatemia -likely 2/2 hypovolemic hypernatremia/dehydration from starvation Sodium is 141, potassium is 3.5 Replacing per protocol monitor BMP daily On phosphate replacement protocol Hypoglycemia, resolved Currently in 120s -currently on TPN from 02/03 at the rate of 50 mL/hour Continue to monitor serum glucose. Starvation ketoacidosis Self induced starvation 2/2 schizophrenia taking food for the past 2 weeks currently on TPN ALISA-resolved -likely prerenal secondary to renal tubular stasis Creatinine is normal and stabilized -monitor BMP Hypokalemia, resolved -2/2 starvation -potassium 3.5 -replace potassium per protocol Schizophrenia Anxiety disorder Discontinued Haldol, mirtazapine, olanzapine trazodone On lorazepam challenge per Ms. Salashel, nurse practitioner with the instructions of Dr. Phelps , psychiatrist [facility] team following the patient daily On Ativan 3 mg IV b.i.d. Gravely disabled -renewed 1798 hold Renewing daily Severe PEM secondary to starvation Severe starvation -Patient cotinues to refuse foods, he is okay with having tablets that can dissolve in the mouth -ensure enlive tid -started on PPN on 01/30, transitioned to TPN on 02/03 -monitor for refeeding syndrome -continue IV thiamine 100 mg once daily for seven days May Need PEG tube placement for feeding if he is not accepting feeds Hypophosphatemia- resolved Constipation. -started on Colace 100 mg p.o. daily and p.r.n. milk of mag Code Status: Full code Line/tube: Right PICC DVT prophylaxis: on SCDs Nutrition: tpn PT: No Prognosis: Guarded Disposition: Deescalating the TPN to 50 mL per hour and plan is to discontinue TPN on tomorrow. Tl Soto IM resident, PGY 2 Date of Service: Feb 09, 2025 Billing Provider: KANU HAILE MD Common Visit Codes: [id number] INP/OBS CARE(HIGH) TL SOTO, RES Feb 09, 2025 18:34 KANU HAILE MD Feb 13, 2025 13:41
--- NOTE | 2025-02-09 21:01 | PROGRESS NOTE ---
Progress Note Dictate Providers to CC ~ Antibiotic Ordered?: No Objective Vitals Vital Signs Date Time Temp Pulse Resp B/P (MAP) Pulse Ox O2 Delivery O2 Flow Rate FiO2 02/09/25 18:00 98.3 87 14 112/68 (83) 98 Room Air Lab Results: 02/07/25 0505 02/09/25 0345 Psychiatrist's Progress Note Notes HPI: Initially admitted to the Psych unit on 01/17/25 for schizophrenia grave disability then transferred to the medical floor 01/25/25 for inadequate nutrition. Gravely disabled due to schizophrenia: dehydration, starvation ketoacidosis hypernatremia. Last seen by Nai OBRIEN on 02/05/25 Per records was sitting up out of bed but not ambulating was utilizing a walker. brush his teeth. denied depression anxiety and SI. Still on TPN and IV fluids. continued to refuse po nutritional intake due to paranoid thinking including that he would be poisoned. Per records hx of regular methamphetamine use. Psychiatric History: Per records his stated that his mental grace issues 2022, he began to stay all day at [facility] [place], refusing to eat and drink, Hx of inpatient hospitalizations: 2x at [facility], X1 at [facility] for one month in 2022. No known Suicide & Self harm history. No known Violence Hx/Legal Hx. Social Hx: moved to [place] from [place], has two daughters ages 15 and 9. - 02/09 Assesment: Per nurse he is 180 degrees to how he was before Has been eating, walking. Per aid he has been chipmonking a whole dinner roll Last night he ate a whole meal, this am break and lunch and has been drinking his ensures, juice. He has been calling his multiple times today. He has been walking laps around the unit. Is no longer refusing accu checks, was resistant but ultimately has been cooperative. Initiated conversation with staff. Was restless at night time. Assessment findings of Catatonia Barriga-Joey Catatonia Rating scale Score: 7 (60 % decrease since initiating treatment with lorazepam on 02/08) Including the following: Grimacing- mild (muscle tension in face muscles, keeping eyes shut), fixed gaze, Stereotypy, Mutism, Immobility, Perseveration- Status: 1798 hold for grave disability Suicide/Self Harm Risk: low Violence Risk: low Elopement Risk: High Fall risk: low - Medications: Lorazepam IV 2 mg BID PRNS: none - Side Effects: Denies No evidence of TD, EPS AIMs: 0 - Review of Psychiatric Symptoms: Mood: denies depression, reports he feels good Suicide/self-harm: denies Sleep: restlesss Appetite: improved Energy: very limited, spending the majority of the day in bed Anxiety: not verbalized Irritability: not observed Homicidal/Anger: denies Hallucinations/Paranoia: denies, no overt paranoia verbalized,- Trauma symptoms: denies - Historical Psych Medications: olanzapine, haloperidol, lorazepam, buspirone, trazodone, - Mental Status Evaluation General Appearance: hospital gown Eye contact: none Demeanor: withdrawn Orientation: to person, place, time, situation Speech: poverty of speech Psychomotor Activity: immobile, Abnormal Body Movements: Stereotypy Gait: not walking Mood: good Affect: Flat Suicidality: denies suicidal ideation Homicidally: denies Thought content:hyper-jehovah's witness preoccupation/ paranoia Thought process: poverty of thought Thought perceptions: no perceptual disorder observed Memory: impairment notable Attention: preoccupied Insight: poor Judgment: poor - Allergies: No known allergies Cardiac HX: Denies TBI Hx: denies Seizure Hx: denies ARMIN Hx: denies - Treatment Diagnoses Schizophrenia Catatonia Failure to thrive Assessment: Riki Milner is a 44 year old male who presents for further evaluation and treatment of catatonia in the context of schizophrenia. Continues to meet criteria for catatonia, has been responsive to IV lorazepam, score 7 (60% decrease since initiating IV lorazepam on 02/08) on the [place] Joey Catatonia Rating Scale, was out of bed last night but has not ambulated today, through reviewing multiple reports of his presentation in the past 24 hours it appears he is having fluctuations in mental status- at times refusing IV medication and at times refusing PO medication additionally he is still on IV fluids and nutrition. Will therefore further increase lorazepam today with aim to fully resolve catatonia and transition him to PO lorazepam so he can be medically cleared. Consulted with attending MD Phelps, will discontinue haloperidol dopamine blockers, antipsychotics can worsen or even cause catatonia and initiate lorazepam IV challenge and titrate. Will coordinate care further with the medical team to discuss further treatment plan and clinical practice guidelines which recommends lorazepam administration up to three times a day at doses up to 24 mg. Due to the duration and severity of catatonia in the context of schizophrenia, prison plan you should consider treatment with ECT. Per clinical practice guidelines, patients with chronic catatonia in the context of schizophrenia show less strong response to lorazepam and are more likely to receive ECT. Will coordinate care with medical attending, social work/ppap coordinator. Discussed prison plan when clinically appropriate would be to consider treatment with MARTINEZ antipsychotic medication due to the severity of schizophrenia. Safety risk: Low risk of imminent self-harm, Low risk of externalized violent behaviors. Plan Increase lorazepam 2 mg IV from BID to TID (can increase up to a total daily dose of 24 mg for treatment of catatonia) ( life of lorazepam 8-14 hours) Recommend continuing scheduled benzodiazepine once he is restarted on antipsychotic medication to mitigate future catatonic episodes Recommend not starting antipsychotic medication until catatonia has fully cleared (up to one week after starting lorazepam treatment- 02/15/25) Recommend once medically stable to transfer back to psychiatric unit Reconsider that all organic causes of schizophrenia have been ruled out Care coordination with hospitalist - Care coordination with family Care coordination with social work/ppap coordinator- Anthony [phone] (called and left message today) Continue Q15 min checks, sitter in room Discharge Plan: reached out to today has medical power of admissions coordinator- not clear if this covers consent for MARTINEZ Spent approximately 90 minutes reviewing records and test results, assessing and treatment planning, completing care coordination and documenting the encounter. Discussed risks, including possible adverse effects, and benefits of treatment recommendations including no treatment. Voice recognition software may have been used to dictate this note. There may be errors due to use of such software. Reporting of serious errors is appreciated. CODING VISIT-PSYCHIATRY Date of Service: Feb 09, 2025 Billing Provider: ELLEN FLYNN DNP Psych Common Visit Codes: CONSULT ONLY ELLEN FLYNN DNP Feb 09, 2025 21:01
[2025-02-09 22:00] VITALS: BP 95/60; PULSE 82; RESP 16; TEMP 98.2; O2SAT 95
[2025-02-10 06:00] VITALS: BP 97/60; PULSE 64; RESP 16; TEMP 97.4; O2SAT 97
[2025-02-10 10:00] VITALS: BP 103/75; PULSE 88; RESP 14; TEMP 98.1; O2SAT 100
--- NOTE | 2025-02-10 11:05 | PROGRESS NOTE- Residence ---
Progress Note - Resident Providers to CC Resident Creating Document: EVERARDO ARNETT IVETTE, RES ~ Antibiotic Timeout Antibiotic Ordered?: No Subjective Seen and examined the patient at bedside. He denies any concerns or complaints. Wishes to go back home. No over night events reported. Objective Vital Signs Date Time Temp Pulse Resp B/P (MAP) Pulse Ox O2 Delivery O2 Flow Rate FiO2 02/10/25 08:00 Room Air 02/09/25 22:00 98.2 82 16 95/60 72 95 Result Diagram: 02/07/25 0505 02/09/25 0345 General:severely malnourished with temporal wasting. Alert, awake, oriented to time place person. Head: Normocephalic with an atraumatic Eyes: Pupils- 3mm, reacting to light, conjunctiva- anicteric Nose and throat: No polyps, septum- normal, no mucosal ulcers. Lips and oral cavity is still dry Neck: Supple, no lymphadenopathy, no carotid bruit Respiratory: No use of accessory muscles of respiration, Bilateral normal breath sounds heard. No wheeze, rhochi or creps Cardiac: S1-S2 heard, rythm regular, no gallop/murmur Abdomen: non distended, no tenderness, no organomegaly, bowel sounds- heard Extremities: no clubbing, no pedal edema, no deformities, peripheral pulses- 2+ Skin: warm and dry, no rash, no purpura Neuro: No focal neurological deficits Assessment Assessment 44-year-old male, with schizophrenia, anxiety, gravely disabled, admitted for management of severe dehydration and hypernatremia Plan Plan Severe dehydration with hypotension, improved Accepting the oral feeds Tolerating them well. Weaned off of TPN. Hypernatremia, resolved Hypokalemia, resolved Hyperchloremia- resolved Hypophosphatemia-Resolved -likely 2/2 hypovolemic hypernatremia/dehydration from starvation Sodium is 141, potassium is 3.5 Replacing per protocol monitor BMP daily On phosphate replacement protocol Hypoglycemia, resolved Doing well on enteral feeding. Continue to monitor serum glucose. Starvation ketoacidosis-Resolved Self induced starvation 2/2 schizophrenia-Resolving Severe PEM secondary to starvation Severe starvation ALISA-resolved -likely prerenal secondary to renal tubular stasis Creatinine is normal and stabilized -monitor BMP Hypokalemia, resolved -2/2 starvation -potassium 3.5 -replace potassium per protocol Schizophrenia Anxiety disorder On lorazepam challenge per Ms. Gutierrez, nurse practitioner with the instructions of Dr. Phelps , psychiatrist [facility] team following the patient daily Hypophosphatemia- resolved Constipation. -started on Colace 100 mg p.o. daily and p.r.n. milk of mag Code Status: Full code Line/tube: Right PICC DVT prophylaxis: on SCDs Nutrition: tpn PT: No Prognosis: Guarded Disposition: Patient is weaned off of TPN. He is medically stable and cleared for evaluation for behavioral health. Date of Service: Feb 10, 2025 Billing Provider: KANU HAILE MD Common Visit Codes: [id number] INP/OBS CARE(HIGH) EVERARDO ARNETT, RES Feb 10, 2025 11:05 KANU HAILE MD Feb 13, 2025 13:41
[2025-02-10] MEDS ORDERED: THIA100T66 PO (14:25)
[2025-02-10] MEDS ORDERED: LACT-237 PO (14:25)
[2025-02-10] MEDS ORDERED: MULT-25 PO (14:25)
[2025-02-10] MEDS ORDERED: THIA100T70 PO (14:36)
--- NOTE | 2025-02-10 16:18 | DISCHARGE SUMMARY-Residence ---
Discharge Summary Providers to Resident Creating Document: EVERARDO ARNETT, RES ~ Discharge Summary Admission Diagnosis: SEVERE DEHYDRATION, ALISA Hospital Course DATE OF ADMISSION: 01/25/2025 DATE OF DISCHARGE: 02/10/2025 Discharge Diagnosis\Comment: Severe dehydration with hypotension Hyponatremia Hypokalemia Hyperchloremia Hypophosphatemia Hypoglycemia Starvation ketoacidosis Self-induced starvation secondary to schizophrenia Severe p.m. secondary to starvation ALISA-vasomotor nephropathy Schizophrenia Acne anxiety Constipation Operations\Procedures: None Consultants: Psychiatrist-Dr. Phelps Complications: None Condition on DC: Stable for transfer Discharge Summary: History of Present Illness by the admitting physician Dr. Parra: 44-year-old male with schizophrenia, anxiety, is transferred from [facility] acute hypernatremia and ALISA. Patient is a Mandarin speaking male, can understand little Georgian and vp training service was used to communicate with him. Because of hallucinations, patient is not eating any food or drinking water for almost a week. He is severely dehydrated. Patient stated he feels like there is a magic cast on his abdomen and does not want to take any food. He does complain of nausea and he is afraid that whenever he eats he feels more nauseated or he will vomit. Spoke to the patient using the vp training and reassured him that we will put him on medications for nausea vomitings and encouraged him to eat however patient continues to decline food and today morning he appears severely dehydrated, he is feeling discomfort and would like to get IV fluids. However patient is refusing labs. Course in the hospital: On initial evaluation the patient was significantly dehydrated. He continued to refuse to eat or drink stating that he is feeling a magic swelling in his abdomen and does not want to eat anything. Patient was also found to be significantly hypernatremic, hyperchloremic most likely secondary to severe dehydration. He was also found to have a self-induced starvation ketoacidosis most likely secondary to schizophrenia. Patient was gravely disabled and was put on 1799 hold. He was treated with supportive care initially and was started on IV fluids. Then Hospital Psychiatric team was consulted. Started the patient on antipsychotic medications-Haldol, mirtazapine, olanzapine, trazodone. with suspicion that the patient refusal to eat was most likely secondary to his underlying schizophrenia. Of the patient's persistent in view of the patient's persistent refusal to eat and worsening starvation, dehydration and malnutrition the patient was started on total parenteral nutrition. The roof slater were consulted and manage the patient's accordingly as per their recommendations. We discussed the recommendations for possible NG tube or PEG tube placement as prolonged parenteral nutrition was being needed in view of the patient's persistent refusal to eat or drink food. The patient denied any interventions. The patient was later treated with a Ativan challenge per Dr. Phelps's r ecommendation and discontinued all the antipsychotic medications. During the course of hospitalization the patient was also being evaluated to be transferred to higher level of care for possible ECT. Eventually the patient improved significantly and started eating on his own. He was able to tolerate his food well and we were able to discontinue his TPN gradually. The patient's electrolytes were monitored closely and corrected accordingly as per the protocol. The patient has been medically cleared to be evaluated by the [facility]. The patient was put on 5150 hold and is being transferred [facility] and treatment. Continue the patient's care and management as per the psychiatrist recommendations. Advised at the time of discharge: Patient is currently on 5150 hold by the [facility] and has been transferred into the [facility] for further evaluation and care. Have discontinued/held all the patient's antipsychotic medication as per the psychiatrist recommendation. Only medication continued is a lorazepam, dose to be adjusted as per the psychiatrist. Closely monitor the patient's CBC, CMP, phosphorus and magnesium daily for at least next three days. And thereafter monitored at least weekly. Laboratory Tests Test 02/08/25 20:08 02/09/25 01:35 02/09/25 03:45 02/09/25 07:22 Glucometer 107 mg/dl 117 mg/dl 128 mg/dl Sodium Level 141 MMOL/L Potassium Level 3.5 MMOL/L Chloride Level 109 MMOL/L Carbon Dioxide Level 27.6 MMOL/L Anion Gap 4 Blood Urea Nitrogen 8 MG/DL Creatinine 0.72 MG/DL Estimated GFR/1.73 m2 > 90 ML/MIN BUN/Creatinine Ratio 11.1 Glucose Level 109 MG/DL Calcium Level 8.2 MG/DL Phosphorus Level 2.0 MG/DL Magnesium Level 2.0 MG/DL Total Bilirubin 0.5 MG/DL Aspartate Amino Transf (AST/SGOT) 17 U/L Alanine Aminotransferase (ALT/SGPT) 36 U/L Alkaline Phosphatase 62 IU/L Total Protein 6.3 G/DL Albumin 3.4 G/DL Globulin 2.9 G/DL Albumin/Globulin Ratio 1.2 Prealbumin 19.5 MG/DL Triglycerides Level 84 MG/DL Chemistry Comments Test 02/09/25 20:03 02/10/25 02:23 02/10/25 02:30 Glucometer 121 mg/dl 106 mg/dl Phosphorus Level 4.2 MG/DL Examination at discharge: General:severely malnourished with temporal wasting. Alert, awake, oriented to time place person. Head: Normocephalic with an atraumatic Eyes: Pupils- 3mm, reacting to light, conjunctiva- anicteric Nose and throat: No polyps, septum- normal, no mucosal ulcers. Neck: Supple, no lymphadenopathy, no carotid bruit Respiratory: No use of accessory muscles of respiration, Bilateral normal breath sounds heard. No wheeze, rhochi or creps Cardiac: S1-S2 heard, rythm regular, no gallop/murmur Abdomen: non distended, no tenderness, no organomegaly, bowel sounds- heard Extremities: no clubbing, no pedal edema, no deformities, peripheral pulses- 2+ Skin: warm and dry, no rash, no purpura Neuro: No focal neurological deficits *Problems/Diagnosis: (1) Schizophrenia (2) Failure to thrive (3) Gravely disabled Status: Acute (4) Major depression (5) Severe malnutrition (6) Severe protein-energy malnutrition (7) Hypophosphatemia (8) Hypokalemia (9) Hypomagnesemia (10) Hypernatremia (11) ALISA (acute kidney injury) (12) Anxiety (13) Constipation (14) Starvation ketoacidosis Total Time Spent on D/C: > 30 Minutes Date of Service: Feb 10, 2025 Billing Provider: KANU HAILE MD Common Visit Codes: 84553-ONP/OBS DISCH DAY >30min Problem Qualifiers (1) Schizophrenia: Schizophrenia type: unspecified Qualified Codes: F20.9 - Schizophrenia, unspecified (2) Failure to thrive: Failure to thrive age range: in adult Qualified Codes: R62.7 - Adult failure to thrive (3) Major depression: Major depression recurrence: unspecified whether recurrent Active/Remission status: currently active Major depression episode severity: unspecified Qualified Codes: F32.9 - Major depressive disorder, single episode, unspecified EVERARDO ARNETT, RES Feb 10, 2025 15:23 KANU HAILE MD Feb 13, 2025 13:41
[2025-02-11] MEDS ORDERED: multivitamins, therapeutics tablet PO SCH (08:00)
== END 2025-02-10 16:20 | DRG 426 ==
LOC: ORTHO 4S 12:00 → UNDOADMIN 12:00 → ORTHO 4S 12:40
PROVIDERS: ADMIT Family Medicine; ATTEND Family Medicine
PROC: 02HV33Z Insertion of Infusion Device into Superior Vena Cava, Percutaneous Approach (ICD-10-PCS; principal; 2025-02-03)
PROC: 4A02X4A Measurement of Cardiac Electrical Activity, Guidance, External Approach (ICD-10-PCS; 2025-02-03)
DX: E87.0 Hyperosmolality and hypernatremia (principal); N17.0 Acute kidney failure with tubular necrosis; E43 Unspecified severe protein-calorie malnutrition; E87.29 Other acidosis; I95.9 Hypotension, unspecified; R45.851 Suicidal ideations; E86.0 Dehydration; F32.9 Major depressive disorder, single episode, unspecified; F20.9 Schizophrenia, unspecified; E87.8 Other disorders of electrolyte and fluid balance, not elsewhere classified; F15.90 Other stimulant use, unspecified, uncomplicated; T73.0XXA Starvation, initial encounter; X58.XXXA Exposure to other specified factors, initial encounter; R47.01 Aphasia; R62.7 Adult failure to thrive; E87.6 Hypokalemia; E16.2 Hypoglycemia, unspecified; F41.9 Anxiety disorder, unspecified; K59.09 Other constipation; E87.1 Hypo-osmolality and hyponatremia; E83.39 Other disorders of phosphorus metabolism; Z79.899 Other long term (current) drug therapy; Z68.1 Body mass index [BMI] 19.9 or less, adult
CPT/HCPCS: 36415; 36569; 74018; 76942; 80048; 80053; 81001; 82948; 83690; 83735; 83930; 84100; 84132; 84134; 84478; 85025; 87081; 99285; C1751; G0378; J1815; J2060; J2405; J3411; J3480; J3490; J7030; J7042; J7050; J7060; J7070; J7120

== ENCOUNTER 2025-03-06 17:17 | Emergency (ER) | payer MEDICAID ==
[~2025-03-06] VITALS: Ht 180.3 cm; Wt 49.0 kg
[~2025-03-06 17:17] MED LIST changes: +ATI1T PO; +LACT-237 PO; +LORA-269; +LORA-269 PO; +MULT-25 PO; -OLAN2.5T77 PO; +THIA100T70 PO; +TRAZ-251 PO
--- NOTE | 2025-03-06 18:08 | Physician Documentation ---
History of Present Illness ~ General Chief Complaint: See Chief Complaint Stated Complaint: GEN WEAKNESS Time Seen by MD: 18:53 Primary Medical Doctor: DAVISK History of Present Illness Initial Comments This is a 44-year-old male with history of mental health disorder and recent hunger strike requiring inpatient psychiatric admission who presents with five days of feeling of fatigue, nausea, and poor appetite. Patient reports no vomiting or diarrhea. Patient reports he has a desire to eat though his stomach feels upset causing him to have poor appetite. Medication Reconciliation Allergies: Coded Allergies: No Known Allergies (Unverified , 05/27/24) Scheduled Lactose-Reduced Food (Ensure Enlive), 1 CAN PO TIDWM Lorazepam (Ativan), 2 MG PO HS Lorazepam (Ativan), 1 TAB PO BID Lorazepam (Ativan), 2 MG PO Q12H PRN Multivitamin with Folic Acid (Thera Tablet), 1 EACH PO DAILY Thiamine Mononitrate (Vitamin B-1), 1 TAB PO DAILY Trazodone HCl (Trazodone HCl), 50 MG PO HS Scheduled PRN Lorazepam (Ativan), 1 TAB PO DAILY PRN for catatonia/anxiety Lorazepam (Ativan), 1 TAB PO QAM PRN for catatonia Miscellaneous Medications Lorazepam (Ativan), (Reported) Past Medical History Patient History: Patient reports no known family medical history. Alcohol Use: None Drug Use: none Lives with: Family Lives In: Home Occupation: employed Review of Systems ROS As stated above in the HPI, otherwise all systems are reviewed and negative. Constitutional: Denies: chills, fever, weakness Eyes: Denies: pain, blurred vision ENT: Denies: ear pain, nose pain, throat pain, mouth pain Respiratory: Denies: cough, shortness of breath Cardiovascular: Denies: chest pain, palpitations Gastrointestinal: Denies: abdominal pain, nausea, vomiting Genitourinary: Denies: burning, dysuria Male Genitalia: Denies: penile discharge, testicular pain Neurological: Denies: headache, dizziness Musculoskeletal: Denies: pain, swelling Integumentary: Denies: rash, lesions Allergic/Immunologic: Denies: hives, itching Hematologic/Lymphatic: Denies: no symptoms reported Psychiatric: Denies: depression, anxiety Physical Exam Physical Exam Vital Signs: Temperature: 98.4, Source: Temporal, Heart Rate: 80, Respiratory Rate: 16, BP: 95/68, Pulse Oximetry: 100, Weight: 49.000 Oxygen Flow Rate: 0 Physical Exam General: Awake and Alert, no acute distress. HEENT: Conjunctiva pink, Sclera clear, Mucus Membranes moist. Neck: Supple without masses and tenderness. Resp: Unlabored. Lungs clear to auscultation bilaterally. Heart: Regular Rate and rhythm, normal S1 and S2 without murmur, rub or gallop. Abdomen: Soft and non tender no organomegaly Extremities: No cyanosis,clubbing or edema. Skin: Warm and Dry. Progress Results/Orders Results/Orders Completed Orders - MARKUS BENSON Ondansetron Disint. Tablet (Zofran Odt T (03/06/25 18:53) Medications Received in ER Medications (Trade) Dose Ordered Sig/Fredo Route PRN Reason Start Time Stop Time Status Last Admin Dose Admin (Zofran ODT tablet) 4 mg ONCE STAT PO 03/06/25 18:53 03/06/25 18:54 DC 03/06/25 19:09 4 MG Vital Signs 03/06/25 17:45 Temp 98.4 Pulse 80 Resp 16 B/P (MAP) 95/68 Pulse Ox 100 O2 Flow Rate 0 Medical Decision Making Findings This is a 44-year-old male with history of mental health disorder and recent hunger strike requiring inpatient psychiatric admission who presents with five days of feeling of fatigue, nausea, and poor appetite. Patient reports no vomiting or diarrhea. Patient reports he has a desire to eat though his stomach feels upset causing him to have poor appetite. Patient was given 4 mg of Zofran by mouth and 30-60 minutes later was feeling much better states his nausea is gone any his appetite returned. Patient has no other concern or complaint at this time and wants a small script to be sent to his pharmacy. Patient will return to ED with any worsening, concerning or changing symptoms. His script for Zofran 4 mg one tab by mouth once or twice a day sent to patient's pharmacy to be used as needed for nausea. Departure Disposition: HOME / SELF CARE / HOMELESS Impression: Primary Impression: Nausea & vomiting Qualified Codes: R11.2 - Nausea with vomiting, unspecified Condition: Improved Discharge Instructions: Nausea and Vomiting, Adult, [id number] Additional Instructions: Patient was given 4 mg of Zofran by mouth and 30-60 minutes later was feeling much better states his nausea is gone any his appetite returned. Patient has no other concern or complaint at this time and wants a small script to be sent to his pharmacy. Patient will return to ED with any worsening, concerning or changing symptoms. His script for Zofran 4 mg one tab by mouth once or twice a day sent to patient's pharmacy to be used as needed for nausea. Referrals: NO PRIMARY CARE PROVIDER (PCP) Prescriptions ONDANSETRON ODT 4mg tablet (ONDANSETRON ODT) 4 Mg Tab.rapdis 4 MG PO BID for 7 Days, #14 TAB Prov: MARKUS BENSON 03/06/25 Signature Scribe Signature: No scribe Attestation: No scribe JAVED [facility] Mar 06, 2025 18:08 MARKUS BENSON Mar 06, 2025 20:17
[2025-03-06] MEDS: ondansetron 4mg rapidly disintigrating tab PO STA (19:09)
[2025-03-06] MEDS ORDERED: ONDA-243 PO (20:16)
[2025-03-06 20:30] VITALS: BP 96/66; PULSE 79; RESP 18; TEMP 98.7; O2SAT 99
== END 2025-03-06 20:32 | disposition home or self-care (01) ==
LOC: ER 17:19
DX: R11.2 Nausea with vomiting, unspecified (principal)
CPT/HCPCS: 99283

== ENCOUNTER 2025-04-06 10:09 | Emergency (ER) | payer MEDICAID ==
[~2025-04-06] VITALS: Ht 177.8 cm; Wt 57.0 kg
[~2025-04-06 10:09] MED LIST changes: +ONDA-243 PO
--- NOTE | 2025-04-06 15:27 | PROGRESS NOTE ---
Progress Note Dictate Providers to CC ~ Progress Note: Brief ED consult: Admitted to the ED with chief complaints of anxiety, increased fear, nausea. Psychiatric symptoms returned in the context of outpatient provider discontinuing lorazepam. Has been trying to wander away from home for the past two days, anxiety increased to the extent that he has been unable to eat, didnt sleep last night, has already gone 24 hours with no sleep and no PO intake. Has been attending his appointments at [facility]. He was afraid that the lorazepam was effecting his memory. He is still using the trazodone qhs has been effective, hydroxyzine TID - not as helpful. Talked to [facility] Nurse: He has had a few visits with psychiatric provider Michael. Currently prescribed: Trazodone 100 mg po qhs (increased on 03/29) Hydroxyzine 50 mg po TID Has been fully taken off the lorazepam Marcia was unable to convince Riki to enter the clinic yesterday for his follow up appointment. called the mobile crisis team this morning who were unable to convince Riki to visit the hospital, then law enforcement became involved to support transferring from home to ED. Today on interview he refused to engage, repeating no, tears of being significant distress, clutching his stomach, appears to have lost significant w eight since discharging. Clutching a plastic bag as if he intends to throw up into it. Refused to peel medication and blood draw. Barriga-Joey Catatonia Rating Scale: Score: 18 (04/06) Score positive in the following categories: a mobility, mutism, posturing, stereotypy, rigidity, withdrawal, negativism Mental Status Evaluation General Appearance: emaciated, pale, sweat pants Eye contact: avoidant Demeanor: withdrawn, does not appear fully aware of their surroundings Orientation: to person, Speech: poverty of speech Psychomotor Activity: tense- catatonic Abnormal Body Movements: none observed Mood: anxious Affect: flat Suicidality: denies suicidal ideation Homicidally: denies Thought content: poverty of thought Thought process: poverty of thought Thought perceptions: no perceptual disorder noted Memory: impairment notable Attention: preoccupied Insight: poor Judgment: limited Plan of Care: discussed recommendation with ED to re-admit Riki to psychiatric unit for further treatment of catatonia. Antibiotic Ordered?: No Objective Vitals Vital Signs Date Time Temp Pulse Resp B/P (MAP) Pulse Ox O2 Delivery O2 Flow Rate FiO2 04/06/25 14:08 16 04/06/25 14:06 04/06/25 10:41 73 96 04/06/25 10:12 98.5 0 CODING VISIT-PSYCHIATRY Date of Service: Apr 06, 2025 Billing Provider: ELLEN FLYNN DNP Psych Common Visit Codes: CONSULT ONLY ELLEN FLYNN DNP Apr 06, 2025 15:27
[2025-04-06 15:52] LABS: MEAN PLATELET VOLUME 8.2 FL (7.4-10.4); RED CELL DISTRIBUTION WIDTH 13.7 % (11.5-14.5)
[2025-04-06 16:10] LABS: CREATININE 1.12 MG/DL (0.60-1.10); TOTAL CARBON DIOXIDE 18.8 MMOL/L (24-32); eCRCL 67 ML/MIN; eGFR 71 ML/MIN
[2025-04-06 16:36] LABS: ETHANOL < 10 MG/DL (<10)
--- NOTE | 2025-04-06 19:36 | Physician Documentation ---
History of Present Illness ~ Chief Complaint: Mental Health Eval Stated Complaint: MH EVAL Time Seen by MD: 10:27 Primary Medical Doctor: DAVISK Source: family Mode of Arrival: Dropped Off Exam Limitations: clinical condition HPI Mr. Milner has a history of catatonia and was recently admitted here for management of acute catatonia. paediatrician met him here in the ED and evaluated him and spoke with his at bedside. He was recently taken off his PO outpatient Lorazepam by his PCP and symptoms worsened. He is now not eating or drinking much and refusing to take his meds. His brought him in for evaluation. Medication Reconciliation Allergies: Coded Allergies: No Known Allergies (Unverified , 04/06/25) Scheduled Lactose-Reduced Food (Ensure Enlive), 1 CAN PO TIDWM Lorazepam (Ativan), 2 MG PO HS Lorazepam (Ativan), 1 TAB PO BID Lorazepam (Ativan), 2 MG PO Q12H PRN Multivitamin with Folic Acid (Thera Tablet), 1 EACH PO DAILY ONDANSETRON ODT 4mg tablet (Ondansetron Odt), 4 MG PO BID Thiamine Mononitrate (Vitamin B-1), 1 TAB PO DAILY Trazodone HCl (Trazodone HCl), 50 MG PO HS Scheduled PRN Lorazepam (Ativan), 1 TAB PO DAILY PRN for catatonia/anxiety Lorazepam (Ativan), 1 TAB PO QAM PRN for catatonia Miscellaneous Medications Lorazepam (Ativan), (Reported) Past Medical History Patient History: Patient reports no known family medical history. Smoking Status: Never smoker Alcohol Use: None Drug Use: none Lives with: Family Lives In: Home Occupation: employed Review of Systems All Other Systems at this time: Reviewed and Negative Physical Exam Vital Signs: RN Vital Signs have been reviewed: Yes, Temperature: 98.5, Source: Temporal, Respiratory Rate: 16, Weight: 57.000 Oxygen Flow Rate: 0 General Appearance: alert, no apparent distress EENT: PERRL/EOMI Neck: non-tender Respiratory: lungs clear Cardiovascular: normal peripheral pulses Gastrointestinal: normal palpation Back: normal inspection Motor / Sensory: no motor deficit, no sensory deficit Cerebellar function exam: normal Appearance/Memory/Insight: appropriate appearance Behavior/Eye contact/Speech: avoids eye contact, refused to answer Affect: flat Skin: warm/dry Progress Results/Orders Results/Orders Orders - PAT MASON MD Med Rec (04/06/25 12:51) 1799.11 (04/06/25 12:51) Close Observation Level (04/06/25 12:51) Covid19 Binax Poc Result Entry (04/06/25 12:51) Regular Diet (04/06/25 Dinner) Drug Screen, Urine (04/06/25 16:39) Completed Orders - PAT MASON MD BMP (04/06/25 10:58) Acetaminophen (04/06/25 10:58) Cbc/Diff (04/06/25 10:58) Ethanol (04/06/25 10:58) Liver Panel (04/06/25 10:58) Salicylate (04/06/25 10:58) Lorazepam Tablet (Ativan Tablet) (04/06/25 11:00) TSH (04/06/25 12:51) Lorazepam Inj (Ativan Inj) (04/06/25 12:55) Medications Received in ER Medications (Trade) Dose Ordered Sig/Fredo Route PRN Reason Start Time Stop Time Status Last Admin Dose Admin (Ativan inj) 2 mg ONCE ONCE IM 04/06/25 12:55 04/06/25 12:56 DC 04/06/25 14:08 2 MG Vital Signs 04/06/25 04/06/25 04/06/25 04/06/25 10:12 10:41 14:06 14:08 Temp 98.5 Pulse 76 73 Resp 16 15 16 B/P (MAP) 117/74 105/74 (84) Pulse Ox 98 96 O2 Flow Rate 0 04/06/25 15:32 Resp 16 B/P (MAP) Laboratory Tests Test 04/06/25 15:24 04/06/25 15:51 White Blood Count 12.1 H Red Blood Count 5.09 Hemoglobin 16.0 Hematocrit 47.2 Mean Corpuscular Volume 92.8 Mean Corpuscular Hemoglobin 31.5 H Mean Corpuscular Hemoglobin Concent 34.0 Red Cell Distribution Width 13.7 Platelet Count 238 Mean Platelet Volume 8.2 Neutrophils (%) (Auto) 89.9 H Lymphocytes (%) (Auto) 6.7 L Monocytes (%) (Auto) 3.3 Eosinophils (%) (Auto) 0 Basophils (%) (Auto) 0.1 Neutrophils # (Auto) 10.9 H Lymphocytes # (Auto) 0.8 L Monocytes # (Auto) 0.4 Eosinophils # (Auto) 0.0 Basophils # (Auto) 0.0 CBC Comment Sodium Level 144 Potassium Level 4.8 Chloride Level 108 H Carbon Dioxide Level 18.8 L Anion Gap 17 H Blood Urea Nitrogen 16 Creatinine 1.12 H Estimated GFR/1.73 m2 71 BUN/Creatinine Ratio 14.3 Glucose Level 145 H Calcium Level 9.2 Total Bilirubin 1.1 H Direct Bilirubin 0.3 Aspartate Amino Transf (AST/SGOT) 14 Alanine Aminotransferase (ALT/SGPT) 15 Alkaline Phosphatase 86 Total Protein 8.8 H Albumin 4.8 Globulin 4.0 Albumin/Globulin Ratio 1.2 Thyroid Stimulating Hormone (TSH) 3.34 Chemistry Comments Salicylates Level 2.0 L Acetaminophen Level < 2.0 L Ethyl Alcohol Level < 10 SARS-CoV-2 Antigen (Rapid) Negative Medical Decision Making Differential Dx:Considerations: Include: Anxiety, Bipolar disorder, Conversion disorder, Depression, Encephaloathy, Personality disorder, Schizophrenia, Substance abuse, Suicidal Differential Diagnosis While here in the ED, he remained hemodynamically normal with ABC's intact and in NAD. He is afebrile and nontoxic. Neuro exam nonfocal. Labs are unremarkable. Restarted on Lorazepam here in the ED. He is medically cleared for Psych evaluation as I suspect he may require inpatient management. Departure Disposition: [address] [place] [address] Impression: Primary Impression: Mental disorder Additional Impression: Catatonia Referrals: NO PRIMARY CARE PROVIDER (PCP) Education Educated: Patient, Family Educated regarding: diagnosis, treatment Signature Scribe Signature: N/A Attestation: N/A PAT MASON MD Apr 06, 2025 19:36
[2025-04-06] MEDS: OLANZapine 5mg rapidly disint. tablet PO ONE (19:48)
[2025-04-06] MEDS ORDERED: HYDR50TA65 PO (19:57)
[2025-04-06] MEDS ORDERED: TRAZ-256 PO (19:57)
[2025-04-06] MEDS ORDERED: OLAN2.5T77 PO (19:57)
[2025-04-07 06:05] VITALS: BP 104/68; PULSE 65; TEMP 96.5; O2SAT 100
[2025-04-07 10:38] LABS: URINE AMPHETAMINE SCREEN NEGATIVE (Neg); URINE BARBITUATE SCREEN NEGATIVE (Neg); URINE BENZODIAZEPINES SCREEN NEGATIVE (Neg); URINE CANNABINOID SCREEN NEGATIVE (Neg); URINE COCAINE SCREEN NEGATIVE (Neg); URINE METHADONE SCREEN NEGATIVE (Neg); URINE OPIATE SCREEN NEGATIVE (Neg); URINE PHENCYCLIDINE SCREEN NEGATIVE (Neg)
[2025-04-07 11:05] LABS: LEUKOCYTE ESTERASE ,URINE NEGATIVE (Neg); NITRITES, URINE NEGATIVE (Neg); OCCULT BLOOD,URINE NEGATIVE (Neg)
[2025-04-07 11:15] LABS: UA COLLECTION TYPE CLN CATCH MIDSTREAM
[2025-04-07 11:16] LABS: MUCUS STRANDS MODERATE /LPF (Neg)
[2025-04-07 11:17] LABS: SQUAMOUS EPITHELIAL CELL,UR FEW /LPF (FEW)
[2025-04-07 11:18] LABS: AMORPHOUS URATES 1+
[2025-04-07 15:49] LABS: PRO BRAIN NATRIURETIC PEPTIDE 99 PG/ML (0-125)
[2025-04-08] MEDS ORDERED: OLANZapine **IM** 10 mg inj. IM ONE (16:30)
[2025-04-08 17:18] VITALS: RESP 16
[2025-04-15] MEDS ORDERED: LORA-269 PO (19:45)
[2025-04-15] MEDS ORDERED: LORA2TAB96 PO (19:45)
== END 2025-04-09 17:35 ==
LOC: ER 10:10
DX: F99 Mental disorder, not otherwise specified (principal); F06.1 Catatonic disorder due to known physiological condition; R06.02 Shortness of breath; Z79.899 Other long term (current) drug therapy; Z20.822 Contact with and (suspected) exposure to COVID-19
CPT/HCPCS: 36415; 80048; 80076; 80305; 80320; 80329; 81001; 83880; 84443; 85025; 87088; 87811; 96372; 99285; J2060

== ENCOUNTER 2025-04-11 19:52 | Emergency (ER) | payer MEDICAID ==
[~2025-04-11] VITALS: Ht 162.6 cm; Wt 50.4 kg
[~2025-04-11 19:52] MED LIST changes: -ATI1T PO; +HYDR50TA65 PO; -LACT-237 PO; -LORA-269; -LORA-269 PO; -MULT-25 PO; -ONDA-243 PO; -THIA100T70 PO; -TRAZ-251 PO; +TRAZ-256 PO
[2025-04-11 20:00] VITALS: BP 124/82; PULSE 107; RESP 16; TEMP 98; O2SAT 98
[2025-04-11 22:30] LABS: MEAN PLATELET VOLUME 9.1 FL (7.4-10.4); RED CELL DISTRIBUTION WIDTH 13.9 % (11.5-14.5)
[2025-04-11 22:49] LABS: CREATININE 1.49 MG/DL (0.60-1.10); PRO BRAIN NATRIURETIC PEPTIDE 340 PG/ML (0-125); TOTAL CARBON DIOXIDE 23.5 MMOL/L (24-32); eCRCL 45 ML/MIN; eGFR 51 ML/MIN
--- NOTE | 2025-04-12 07:08 | ELECTROCARDIOGRAPH REPORT ---
[facility] Test Date: 2025-04-11 Test Time: 20:02:42 Pat Name: ASHVIN YUEN Department: EMERGENCY ROOM Room: Gender: M Program Attendant: DENNY : 1980 Requested By: MAYNOR PATHAK [facility]: [id number] Reading MD: Dr. Star Madera Measurements Intervals [place] Rate: 101 P: 91 SC: 110 QRS: 264 QRSD: 80 T: 11 QT: 340 QTc: 441 Interpretive Statements Sinus tachycardia Right atrial enlargement Right superior axis Consider right ventricular hypertrophy Consider left ventricular hypertrophy Electronically Signed On 04-13-2025 21:42:[address] Star Madera Please click the below link to view image of tracing.
[2025-04-15] MEDS ORDERED: LORA2TAB96 PO (19:45)
[2025-04-15] MEDS ORDERED: LORA-269 PO (19:45)
== END 2025-04-11 23:13 | disposition left against medical advice (07) ==
LOC: ER 19:52
DX: R07.9 Chest pain, unspecified (principal); Z53.21 Procedure and treatment not carried out due to patient leaving prior to being seen by health care provider
CPT/HCPCS: 36415; 80048; 83880; 84484; 85025; 93005; 99281